=== PATIENT | female | born 1940 | race Caucasian/White ===

== ENCOUNTER 2020-01-26 12:07 | Inpatient (IN) ==
[2020-01-26] MEDS ORDERED: ASPIRIN CHEW 324 MG PO STA (12:15)
[2020-01-26] MEDS ORDERED: SODIUM CHLORIDE 0.9% 500 ML IV SCH (12:15)
[2020-01-26] MEDS ORDERED: SODIUM CHLORIDE 0.9% 1000ML 1,000 ML IV ONE (12:24)
[2020-01-26 12:47] LABS: Basophils # (auto) 0.03 K/uL (0-0.2); Basophils % (auto) 0.2 %; Eosinophils # (auto) 0.02 K/uL (0-0.5); Eosinophils % (auto) 0.2 %; Hematocrit (blood only) 32.9 % (37-47); Hemoglobin 10.4 g/dL (12.0-16.0); Immature Granulocytes # (auto) 0.04 K/uL (0.00-0.02); Immature Granulocytes % (auto) 0.3 %; Lymphocytes # (auto) 1.38 K/uL (1.2-3.4); Lymphocytes % (auto) 10.6 %; Mean Corpuscular Hemoglobin 26.7 pg (25-34); Mean Corpuscular Hgb Conc 31.6 g/dL (32-36); Mean Corpuscular Volume 84.6 fL (80-100); Mean Platelet Volume 9.5 fL (7.4-10.4); Monocytes # (auto) 0.85 K/uL (0.11-0.59); Monocytes % (auto) 6.5 %; Neutrophils # (auto) 10.69 K/uL (1.4-6.5); Neutrophils % (auto) 82.2 %; Platelet Count 475 K/uL (130-400); RDW Standard Deviation 46.5 fL (36.4-46.3); Red Blood Count 3.89 M/uL (4.2-5.4); White Blood Count 13.01 K/uL (4.8-10.8)
--- NOTE | 2020-01-26 12:56 | Emergency Department Note ---
History of Present Illness General Chief complaint: Arrhythmia/Palpitations Stated complaint: A FIB Time Seen by Provider: 01/26/20 12:15 History of Present Illness Provider complaint: Weakness/palpitations Onset (ago): day(s) 2 Location: chest Current Pain Intensity: 0 79-year-old female presents emergency department with weakness. She states she is also been having palpitations for last 2 days. Patient reports she recently traveled to [place] 1 month ago. She denies any fevers. She denies any loss of taste or smell. She denies any chest pain or difficulty breathing. No nausea or vomiting. No hematuria or hematochezia. No melena. No abdominal pain. Home Medications Home Medications Medication Instructions Recorded Confirmed Type atorvastatin 20 mg PO QAM 05/20/18 01/26/20 History lisinopril-hydrochlorothiazide 1 tab PO QAM 05/20/18 01/26/20 History metoprolol tartrate 25 mg PO BID #30 tab 05/20/18 01/26/20 Rx apixaban [Eliquis] 5 mg PO BID 01/26/20 01/26/20 History Allergies Allergy/AdvReac Type Severity Reaction Status Date / Time No Known Allergies Allergy Unverified 01/26/20 13:24 Past Med/Surg History Medical History Chronic anticoagulation HLD (hyperlipidemia) Hypertension Paroxysmal atrial fibrillation Surgical History History of dilation and curettage Family History Father Heart disease Mother Heart disease Other No significant family history Social History Preferred Language: German Communication Ability: Effective 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 Beliefs That Will Affect Care: None Current Living Situation: Spouse Other Information That Helps Us Care for You: No Feels Safe at Home: Yes Safety Concerns: Feels Safe At This Time Smoking Status: Former smoker Hx Alcohol Use: No Hx Substance Use: No Review of Systems A total of 10 systems reviewed and were otherwise negative Physical Exam Vital Signs Vital Signs - 24 hr 01/26/20 12:12 01/26/20 12:20 01/26/20 12:21 Temperature 36.8 C Temperature Source Oral Pulse Rate 75 120 H 110 H Pulse Rate from SpO2 Sensor Respiratory Rate 20 24 25 H Respiratory Effort / Characteristics Non-Labored Spontaneous Respiratory Depth Normal Blood Pressure 97/66 L 88/67 L Blood Pressure Mean 76 80 Pulse Oximetry 95 96 Oxygen Delivery Method Room Air Room Air Sepsis Recent Fever Within 48 Hours No Sepsis Action Taken by Nursing No Action Required 01/26/20 12:28 01/26/20 12:30 01/26/20 13:00 Temperature Temperature Source Pulse Rate 108 H 107 H 97 H Pulse Rate from SpO2 Sensor 102 H 106 H Respiratory Rate 17 18 18 Respiratory Effort / Characteristics Respiratory Depth Blood Pressure 83/58 L 89/60 L 77/63 L Blood Pressure Mean 74 65 68 Pulse Oximetry 95 98 Oxygen Delivery Method Room Air Room Air Sepsis Recent Fever Within 48 Hours Sepsis Action Taken by Nursing 01/26/20 13:03 01/26/20 13:23 01/26/20 13:42 Temperature Temperature Source Pulse Rate 105 H 101 H 123 H Pulse Rate from SpO2 Sensor 104 H 125 H Respiratory Rate 25 H 26 H 22 Respiratory Effort / Characteristics Respiratory Depth Blood Pressure 82/63 L 98/78 L Blood Pressure Mean 68 83 Pulse Oximetry 100 98 Oxygen Delivery Method Room Air Room Air Sepsis Recent Fever Within 48 Hours Sepsis Action Taken by Nursing 01/26/20 13:43 01/26/20 13:49 01/26/20 14:00 Temperature Temperature Source Pulse Rate 109 H 134 H 102 H Pulse Rate from SpO2 Sensor 115 H 113 H 101 H Respiratory Rate 21 25 H 16 Respiratory Effort / Characteristics Respiratory Depth Blood Pressure 87/72 L 104/81 110/80 Blood Pressure Mean 78 87 87 Pulse Oximetry 100 100 100 Oxygen Delivery Method Room Air Room Air Room Air Sepsis Recent Fever Within 48 Hours Sepsis Action Taken by Nursing 01/26/20 14:01 01/26/20 14:30 01/26/20 15:00 Temperature Temperature Source Pulse Rate 107 H 100 H 132 H Pulse Rate from SpO2 Sensor 100 H 130 H Respiratory Rate 17 22 19 Respiratory Effort / Characteristics Respiratory Depth Blood Pressure 101/85 104/86 Blood Pressure Mean 93 92 Pulse Oximetry 100 99 Oxygen Delivery Method Room Air Room Air Sepsis Recent Fever Within 48 Hours Sepsis Action Taken by Nursing 01/26/20 15:01 Temperature Temperature Source Pulse Rate 126 H Pulse Rate from SpO2 Sensor 125 H Respiratory Rate 19 Respiratory Effort / Characteristics Respiratory Depth Blood Pressure Blood Pressure Mean Pulse Oximetry 96 Oxygen Delivery Method Room Air Sepsis Recent Fever Within 48 Hours Sepsis Action Taken by Nursing Physical Exam GENERAL: She is oriented to person, place, and time. She appears well-developed and well-nourished. She does not appear distressed. HENT: Exam performed. -Head: Normocephalic and atraumatic. -Right Ear: External ear normal. No mastoid tenderness. -Left Ear: External ear normal. No mastoid tenderness. -Mouth/Throat: The oropharynx is clear and moist. No trismus in the jaw. No dental abscesses or uvula swelling. No oropharyngeal exudate or tonsillar abscesses. EYES: Conjunctivae and EOM are normal. Pupils are equal, round, and reactive to light. Right eye exhibits no discharge. Left eye exhibits no discharge. No scleral icterus. NECK: Normal range of motion. Neck supple. No JVD present. No spinous process tenderness present. No carotid bruit present. No rigidity. No tracheal deviation and normal range of motion present. No Brudzinski's sign and no Kernig's sign noted. CV: Regular rate, irregular rhythm, normal heart sounds and intact distal pulses. There is no peripheral edema. Palpable radial pulses bue. PULM/CHEST: Effort normal and breath sounds normal. No respiratory distress. No stridor. She has no wheezes. She has no rales. -Chest Wall: She exhibits no tenderness. ABD: The abdomen is soft. Bowel sounds are normal. She has no distension. No mass is present. There is no tenderness. There is no rebound, no guarding, no Alves's sign and no tenderness at McBurney's point. Rovsig negative MUSC/SKEL: Normal range of motion. There is no peripheral edema, tenderness or deformity. LYMPH: No cervical adenopathy. NEURO: She is alert and oriented to person, place, and time. She has normal strength. No cranial nerve deficit or sensory deficit. Coordination and gait normal. GCS eye subscore is 4. GCS verbal subscore is 5. GCS motor subscore is 6. Cerebellar tests wnl. SKIN: Skin is warm and dry. She is not diaphoretic. PSYCH: She has a normal mood and affect. Behavior is normal. Judgment and thought content normal. Course Course 1220: The patient was evaluated in room A2 A complete history and physical exam was performed. Cardiac monitoring: An order was placed for continuous cardiac monitoring. The monitor shows a rate of 90-120 with A. fib rhythm 1400: Vital signs stable. Labs show a leukocytosis of 13. White blood cell count 10.4. Creatinine 1.37. Urine does appear infected. Is I was informed by nursing staff that the patient got up to use restroom and had a large bloody bowel movement. Given the patient's initial low blood pressures, being Eliquis, and having bloody bowel movements, I thought that the patient should be brought into the hospital for serial hemoglobins a possible GI evaluation. Patient will also be treated with antibiotics for her urine which appears infected. Discussed with Sydney newberry [facility] hospitalist who accepted the patient and will evaluate her. Administered Medications Sodium Chloride (Nss 1000ml) 1,000 mls @ 125 mls/hr IV .Q8H VICTOR M Stop: 02/25/20 13:59 Last Admin: 01/26/20 14:27 Dose: 125 mls/hr Documented by: [id number] Discontinued Medications Aspirin (Aspirin) 324 mg PO NOW STA Stop: 01/26/20 12:16 Last Admin: 01/26/20 12:22 Dose: 324 mg Documented by: [id number] Sodium Chloride (Nss) 500 mls @ 999 mls/hr IV .Q31M VICTOR M Stop: 01/26/20 12:45 Last Admin: 01/26/20 12:49 Dose: Not Given Documented by: [id number] Sodium Chloride (Nss 1000ml) 1,000 mls @ 999 mls/hr IV .Q1H1M ONE Stop: 01/26/20 13:24 Last Infusion: 01/26/20 13:33 Dose: 0 mls/hr Documented by: [id number] Admin: 01/26/20 12:31 Dose: 999 mls/hr Documented by: [id number] Ceftriaxone Sodium (Rocephin) 1,000 mg in 50 mls @ 100 mls/hr IV NOW STA Stop: 01/26/20 14:42 Last Admin: 01/26/20 14:27 Dose: 100 mls/hr Documented by: [id number] Medical Decision Making Laboratory Data Result diagrams: 01/26/20 12:27 01/26/20 12:27 Lab Results 01/26/20 01/26/20 01/26/20 Range/Units 12:27 12:27 12:27 WBC 13.01 H (4.8-10.8) K/uL RBC 3.89 L (4.2-5.4) M/uL Hgb 10.4 L (12.0-16.0) g/dL Hct 32.9 L (37-47) % MCV 84.6 (80-100) fL MCH 26.7 (25-34) pg MCHC 31.6 L (32-36) g/dL RDW Std Deviation 46.5 H (36.4-46.3) fL RDW Coeff of Uma 15.0 H (11.5-14.5) % Plt Count 475 H (130-400) K/uL MPV 9.5 (7.4-10.4) fL Immature Gran % (Auto) 0.3 % Neut % (Auto) 82.2 % Lymph % (Auto) 10.6 % [place] % (Auto) 6.5 % Eos % (Auto) 0.2 % Baso % (Auto) 0.2 % Neut # (Auto) 10.69 H (1.4-6.5) K/uL Lymph # (Auto) 1.38 (1.2-3.4) K/uL [place] # (Auto) 0.85 H (0.11-0.59) K/uL Eos # (Auto) 0.02 (0-0.5) K/uL Baso # (Auto) 0.03 (0-0.2) K/uL Immature Gran # (Auto) 0.04 H (0.00-0.02) K/uL PT 11.9 (9.0-12.0) Seconds INR 1.1 (0.9-1.1) APTT 29.5 (21.0-31.0) Seconds PTT Ratio 1.1 Sodium 136 (136-145) mmol/L Potassium 4.3 (3.5-5.1) mmol/L Chloride 106 (98-107) mmol/L Carbon Dioxide 22 (21-32) mmol/L Anion Gap 8.0 (3-11) BUN 44 H (7-18) mg/dl Creatinine 1.37 H (0.6-1.2) mg/dl Est Cr Clr Drug Dosing 25.5 ml/min Est GFR ( Amer) 41.8 Est GFR (Non-Af Amer) 36.1 BUN/Creatinine Ratio 32.1 H (10-20) Glucose 152 H (70-99) mg/dl Lactate (0.4-2.0) mmol/L Calcium 9.1 (8.5-10.1) mg/dl Troponin I < 0.015 (0-0.045) ng/ml Lipase 146 (73-393) U/L Urine Color Urine Appearance (Clear) Urine pH (4.5-7.5) Ur Specific [place] (1.000-1.030) Urine Protein (Negative) Urine Glucose (UA) (Negative) Urine Ketones (Negative) Urine Blood (Negative) Urine Nitrite (Negative) Urine Bilirubin (Negative) Urine Urobilinogen (Negative) Ur Leukocyte Esterase (Negative) Urine RBC (0-4) /hpf Urine WBC (0-5) /hpf Ur Epithelial Cells (0-5) /lpf Urine Bacteria (Negative) 01/26/20 01/26/20 Range/Units 12:27 13:46 WBC (4.8-10.8) K/uL RBC (4.2-5.4) M/uL Hgb (12.0-16.0) g/dL Hct (37-47) % MCV (80-100) fL MCH (25-34) pg MCHC (32-36) g/dL RDW Std Deviation (36.4-46.3) fL RDW Coeff of Uma (11.5-14.5) % Plt Count (130-400) K/uL MPV (7.4-10.4) fL Immature Gran % (Auto) % Neut % (Auto) % Lymph % (Auto) % [place] % (Auto) % Eos % (Auto) % Baso % (Auto) % Neut # (Auto) (1.4-6.5) K/uL Lymph # (Auto) (1.2-3.4) K/uL [place] # (Auto) (0.11-0.59) K/uL Eos # (Auto) (0-0.5) K/uL Baso # (Auto) (0-0.2) K/uL Immature Gran # (Auto) (0.00-0.02) K/uL PT (9.0-12.0) Seconds INR (0.9-1.1) APTT (21.0-31.0) Seconds PTT Ratio Sodium (136-145) mmol/L Potassium (3.5-5.1) mmol/L Chloride (98-107) mmol/L Carbon Dioxide (21-32) mmol/L Anion Gap (3-11) BUN (7-18) mg/dl Creatinine (0.6-1.2) mg/dl Est Cr Clr Drug Dosing ml/min Est GFR ( Amer) Est GFR (Non-Af Amer) BUN/Creatinine Ratio (10-20) Glucose (70-99) mg/dl Lactate 1.9 (0.4-2.0) mmol/L Calcium (8.5-10.1) mg/dl Troponin I (0-0.045) ng/ml Lipase (73-393) U/L Urine Color Yellow Urine Appearance Slightly Cloudy (Clear) Urine pH 5.0 (4.5-7.5) Ur Specific [place] 1.025 (1.000-1.030) Urine Protein Negative (Negative) Urine Glucose (UA) Negative (Negative) Urine Ketones Negative (Negative) Urine Blood 1+ H (Negative) Urine Nitrite Positive A (Negative) Urine Bilirubin Negative (Negative) Urine Urobilinogen Negative (Negative) Ur Leukocyte Esterase Trace H (Negative) Urine RBC 0-4 (0-4) /hpf Urine WBC 10-30 H (0-5) /hpf Ur Epithelial Cells >30 H (0-5) /lpf Urine Bacteria 1+ H (Negative) Imaging Data Radiologist's Impression: XR chest 1V portable HISTORY: 46 years-old Male Chest Pain . Acute atypical chest pain COMPARISON: CT abdomen and pelvis 04/24/2016 TECHNIQUE: Portable AP view of the chest FINDINGS: Cardiac silhouette is mildly enlarged. Eventration of the right hemidiaphragm. Mild linear subsegmental left basilar atelectasis/scarring. No pneumothorax, pleural effusion, airspace consolidation or overt pulmonary edema. Degenerative changes of the shoulders and spine. IMPRESSION: No acute process. ACT 112: Negative or not required by law. The above report was generated using voice recognition software. It may contain grammatical, syntax or spelling errors. Electronically signed by: Jesus Ivory M.D. 01/26/2020 2:25 PM Dictated: 01/26/20 1424 Transcribed: 01/26/20 1424 ECG Data Indication: + palpitations and + weakness Rate (beats per minute): 109 Rhythm: + atrial fibrillation ECG Intervals/blocks: + Normal QRS and + Normal QT-c ECG ST segments: + Normal ST segments MDM Narrative 1220: The patient was evaluated in room A2 A complete history and physical exam was performed. Cardiac monitoring: An order was placed for continuous cardiac monitoring. The monitor shows a rate of 90-120 with A. fib rhythm 1400: Vital signs stable. Labs show a leukocytosis of 13. White blood cell count 10.4. Creatinine 1.37. Urine does appear infected. Is I was informed by nursing staff that the patient got up to use restroom and had a large bloody bowel movement. Given the patient's initial low blood pressures, being Eliquis, and having bloody bowel movements, I thought that the patient should be brought into the hospital for serial hemoglobins a possible GI evaluation. Patient will also be treated with antibiotics for her urine which appears infected. Discussed with Sydney Horvath hospitalist who accepted the patient and will evaluate her. Impression & Plan GIB (gastrointestinal bleeding), Acute UTI Discharge Plan Visit Data Chief Complaint: Arrhythmia/Palpitations Stated Complaint: A FIB ED Provider: Kenneth Cardoza Discharge Problem: GIB (gastrointestinal bleeding), Acute UTI Patient Disposition: Being Evaluated by Hospitalist Discharge Instructions Interventions: ED Discharge Assessment Last Done: 01/26/20 15:04 Forms Stand Alone Forms: [facility] Prescriptions Prescriptions: No Action atorvastatin 20 mg tablet 20 mg PO QAM RF: 0 lisinopril-hydrochlorothiazide 20-12.5 mg tablet 1 tab PO QAM RF: 0 metoprolol tartrate 25 mg tablet 25 mg PO BID Qty: 30 RF: 0 Eliquis 5 mg tablet 5 mg PO BID RF: 0 Referrals Referrals: Shruthi Crowell DO [Primary Care Provider] - Discharge Problem: GIB (gastrointestinal bleeding) Qualifiers: GI bleed type/associated pathology: unspecified gastrointestinal hemorrhage type Qualified Code(s): K92.2 - Gastrointestinal hemorrhage, unspecified
[2020-01-26 12:57] LABS: INR 1.1 (0.9-1.1); Partial Thromboplastin Ratio 1.1; Partial Thromboplastin Time 29.5 Seconds (21.0-31.0); Prothrombin Time 11.9 Seconds (9.0-12.0)
[2020-01-26 13:04] LABS: BUN Creatinine Ratio 32.1 (10-20); Blood Urea Nitrogen 44 mg/dl (7-18); Calcium 9.1 mg/dl (8.5-10.1); Carbon Dioxide 22 mmol/L (21-32); Chloride 106 mmol/L (98-107); Creatinine Clr Calc Pharmacy 25.5 ml/min; Est GFR (African American) 41.8; Est GFR (Non-African American) 36.1; Glucose 152 mg/dl (70-99); Lipase 146 U/L (73-393); Potassium 4.3 mmol/L (3.5-5.1); Sodium 136 mmol/L (136-145)
--- NOTE | 2020-01-26 13:07 | XRay Report ---
XR chest 2V PA/lateral HISTORY: 79 years-old Female Chest Pain acute atypical chest pain COMPARISON: chest radiograph 05/20/2018 TECHNIQUE: PA and lateral views of the chest FINDINGS: Cardiomediastinal and hilar silhouettes are unchanged. Calcified plaque of the thoracic aorta. Hyperi nflation with increased lucency of the lungs redemonstrated suggestive of emphysema. No pneumothorax, pleural effusion, airspace consolidation or overt pulmonary edema. Degenerative changes of the shoul ders and spine. IMPRESSION: No acute process. ACT 112: Negative or not required by law. The above report was generated using voice recognition software. It may contain grammatical, syntax o r spelling errors. Electronically signed by: Jesus Ivory M.D. 01/26/2020 1:05 PM
[2020-01-26 13:10] LABS: Troponin I < 0.015 ng/ml (0-0.045)
[2020-01-26 13:54] LABS: Appearance Urine Slightly Cloudy (Clear); Bilirubin Urine Negative (Negative); Blood Urine 1+ (Negative); Color Urine Yellow; Glucose Urine UA Negative (Negative); Ketones Urine Negative (Negative); Leukocyte Esterase Urine Trace (Negative); Nitrite Urine Positive (Negative); Protein Urine Negative (Negative); Specific Gravity Urine 1.025 (1.000-1.030); Urobilinogen Urine Negative (Negative)
[2020-01-26 14:00] LABS: Bacteria Urine 1+ (Negative); Epithelial Cell Urine >30 /lpf (0-5); RBC Urine 0-4 /hpf (0-4)
[2020-01-26] MEDS ORDERED: SODIUM CHLORIDE 0.9% 1000ML 1,000 ML IV SCH (14:00)
[2020-01-26] MEDS ORDERED: cefTRIAXone SODIUM 1,000 MG/50 ML BAG IV STA (14:13)
--- NOTE | 2020-01-26 15:10 | History & Physical Report ---
Date of Service January 26, 2020 Assessment & Plan (1) Lower GI bleed: (2) Anemia: -admit to tele -Patient presenting from home with reports of fatigue, weakness, exertional shortness of breath. Had an outpatient EKG that showed afib with RVR and was sent to the ED for further eval. While in the ED, patient had a bowel movement with bright red blood. Patient is anticoagulated on Eliquis for history of paroxysmal atrial fibrillation. -Hgb 10.4, was 15.3 04/2018 -No prior history of EGD or colonoscopy -Hold Eliquis -Serial H&H, transfuse PRN -Clear liquids -IVF -GI consult, Dr. Fung notified (3) Atrial fibrillation with RVR: -Presented with heart rate in the 120s -Likely secondary to GI bleeding and/or UTI -Continue supportive efforts for GI bleeding and UTI -Holding Eliquis due to GI bleeding -Continue metoprolol (4) Possible urinary tract infection: -UA suggest UTI -WBC 13 K. Noted the patient is also tachycardic and hypotensive however GI bleeding is likely contributing to this. -Normal lactate 1.9 -Most recent urine culture grew a pansensitive E. coli, received IV ceftriaxone in the ED, will continue with -Follow urine and blood cultures (5) Hypertension: -Given hypotension, hold lisinopril and HCTZ -Continue metoprolol for rate control of A. fib (6) DVT prophylaxis: -SCDs due to GI bleeding History of Present Illness Chief Complaint: Weakness, shortness of breath Primary Care Provider: Shruthi Crowell DO 79-year-old female with PMH paroxysmal atrial fibrillation anticoagulant Eliquis, HTN, HLD, and other problems listed below who presents the ED for evaluation of weakness and shortness of breath. Patient reports she has been feeling weak and fatigued for the past few days. Yesterday, she reports she felt short of breath with exertion. She was able to monitor her blood pressure and heart rate at home and found that her heart rate was up and her blood pressure was low. She was seen in outpatient clinic and had an EKG that showed atrial fibrillation with RVR, she was therefore sent to the ED for further evaluation. While in the ED, patient had a bowel movement with some bright red blood. Patient reports this happens occasionally at home. Denies any dark tarry stools. No abdominal pain, nausea, vomiting, diarrhea. She denies chest pain and palpitations. She reports some mild lightheadedness with standing however denies any syncopal event. She denies any other recent illnesses, fevers, chills. No urinary symptoms. In the ED, patient was found to be in atrial fibrillation with RVR with rates 110s-120s, hypotension with systolic BP as low as 77/63. WBC 13 K, Hgb 10.4. UA suggest UTI. Patient received full dose aspirin, IV ceftriaxone, and IVF. Allergies Allergy/AdvReac Type Severity Reaction Status Date / Time No Known Allergies Allergy Unverified 01/26/20 13:24 Home Medications Home Medications Medication Instructions Recorded Confirmed Type atorvastatin 20 mg PO QAM 05/20/18 01/26/20 History lisinopril-hydrochlorothiazide 1 tab PO QAM 05/20/18 01/26/20 History metoprolol tartrate 25 mg PO BID #30 tab 05/20/18 01/26/20 Rx apixaban [Eliquis] 5 mg PO BID 01/26/20 01/26/20 History Past Med/Surg History Medical History Chronic anticoagulation HLD (hyperlipidemia) Hypertension Paroxysmal atrial fibrillation Surgical History History of dilation and curettage Family History Father Heart disease Mother Heart disease Other No significant family history Social History Preferred Language: Spanish 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 Beliefs That Will Affect Care: None Current Living Situation: Spouse Other Information That Helps Us Care for You: No Feels Safe at Home: Yes Safety Concerns: Feels Safe At This Time Smoking Status: Former smoker Hx Alcohol Use: No Hx Substance Use: No Review of Systems Review of Systems: ROS per HPI, all other systems reviewed and negative Physical Exam Constitutional: WD/WN, vitals as above Eyes: PERRL, conjunctivae normal, anicteric sclerae ENMT: external ear and nose normal, oropharynx normal Respiratory: normal respiratory effort, lungs clear to auscultation Cardiovascular: Rate/Rhythm: regular rate and regular rhythm Vessels: normal peripheral pulses Extremities: + edema Gastrointestinal (Abdomen): normal bowel sounds, soft, nontender, no hepatosplenomegaly Musculoskeletal: no cyanosis or clubbing, extremities motor strength 5/5 Skin: no rashes, warm and dry Neurologic: PERRL, EOMI, accommodation nl, no face palsy, no dysarthria Psychiatric: A+Ox3, euthymic affect Results & Data Results & Data ([facility]) Vital Signs (Past 12 Hours) Vital Signs Temp Pulse Resp BP Pulse Ox 01/26/20 13:43 109 H 21 87/72 L 100 01/26/20 13:42 123 H 22 98 01/26/20 13:23 101 H 26 H 98/78 L 01/26/20 13:03 105 H 25 H 82/63 L 100 01/26/20 13:00 97 H 18 77/63 L 01/26/20 12:30 107 H 18 89/60 L 98 01/26/20 12:28 108 H 17 83/58 L 95 01/26/20 12:21 110 H 25 H 96 01/26/20 12:20 120 H 24 88/67 L 01/26/20 12:12 36.8 C 75 20 97/66 L 95 Laboratory Results Short CBC 01/26/20 Range/Units 12:27 WBC 13.01 H (4.8-10.8) K/uL Hgb 10.4 L (12.0-16.0) g/dL Hct 32.9 L (37-47) % Plt Count 475 H (130-400) K/uL BMP 01/26/20 12:27 Sodium 136 Potassium 4.3 Chloride 106 Carbon Dioxide 22 BUN 44 H Creatinine 1.37 H Glucose 152 H Calcium 9.1 Cardiac Enzymes 01/26/20 Range/Units 12:27 Troponin I < 0.015 (0-0.045) ng/ml Urine 01/26/20 Range/Units 13:46 Urine Color Yellow Urine Appearance Slightly Cloudy (Clear) Urine pH 5.0 (4.5-7.5) Ur Specific [place] 1.025 (1.000-1.030) Urine Protein Negative (Negative) Urine Glucose (UA) Negative (Negative) Diagnostic Findings CXR IMPRESSION: No acute process. Code Status & VTE Plan Code Status Patient is a full code as per my discussion with her. VTE Prophylaxis Plan VTE Prophylaxis will be ordered: Yes Supervising Physician Co-Signing Physician Notes I have seen and examined the patient and have discussed the case with the provider above. I agree with the assessment and plan as stated. This is an 79 yo F with a h/o paroxysmal atrial fibrillation and no h/o stroke who presents with a lower GI bleed and anemia. She has no h/o CAD or of being ill recently. She reports never having a colonoscopy. She denies abdominal pain but is feeling fatigued and orthostatic with a small bloody BM in the ER today. Physical exam reveals a well appearing female in her 80s who appears younger than her stated age who is in no distress. Mucous membranes are moist and there is no evidence of significant ecchymosis. Cardiac exam reveals S1/2 with an irregular tachy rhythm, radial pulse is 2+ on the right, and no edema is present. Lungs are clear to auscultation throughout and she does not show signs of respiratory distress. Abdomen exam is benign. H/H is 10.4/33, INR is 1 (l ast dose Eliquis was this morning), kidney function appears stable. Plan as above is to hold Eliquis and chemoprophylaxis and trend H/H. Will cont resuscitation efforts with IVF overnight. Cont home metoprolol; RVR likely secondary to acute blood loss anemia vs infection, monitor on telemetry. Agree with empiric Rocephin for UTI, however, she does not appear to be septic and denies any UTI symptoms. Cont empiric abx pending urine culture results. GI consult for recommendations on etiology investigation. Cont clear liquid diet for now. DO Burton
[2020-01-26] MEDS ORDERED: ONDANSETRON INJ 2 MG/ML 2 ML VIAL IV PRN (15:34)
[2020-01-26] MEDS ORDERED: ACETAMINOPHEN 325 MG TAB PO PRN (15:34)
[2020-01-26] MEDS: SODIUM CHLORIDE 0.9% 1000ML 1,000 ML IV SCH (15:47)
[2020-01-26 20:10] LABS: Hematocrit (blood only) 31.6 % (37-47); Hemoglobin 9.9 g/dL (12.0-16.0)
[2020-01-26] MEDS: METOPROLOL TARTRATE 25 MG TAB PO SCH (21:26)
[2020-01-27] MEDS: SODIUM CHLORIDE 0.9% 1000ML 1,000 ML IV SCH ×3 (02:48→23:06)
[2020-01-27 06:06] LABS: Hematocrit (blood only) 30.5 % (37-47); Hemoglobin 9.5 g/dL (12.0-16.0); Mean Corpuscular Hemoglobin 27.1 pg (25-34); Mean Corpuscular Hgb Conc 31.1 g/dL (32-36); Mean Corpuscular Volume 86.9 fL (80-100); Mean Platelet Volume 9.6 fL (7.4-10.4); Platelet Count 395 K/uL (130-400); RDW Coefficient of Variation 15.3 % (11.5-14.5); RDW Standard Deviation 48.7 fL (36.4-46.3); Red Blood Count 3.51 M/uL (4.2-5.4)
[2020-01-27 06:17] LABS: INR 1.1 (0.9-1.1); Prothrombin Time 11.2 Seconds (9.0-12.0)
[2020-01-27 06:41] LABS: BUN Creatinine Ratio 29.3 (10-20); Calcium 8.4 mg/dl (8.5-10.1); Creatinine Clr Calc Pharmacy 34.2 ml/min; Est GFR (African American) 53.9; Est GFR (Non-African American) 46.5; Potassium 4.1 mmol/L (3.5-5.1)
--- NOTE | 2020-01-27 10:00 | Gastrointestinal Consultation ---
Date of Consultation January 27, 2020 Assessment & Plan (1) GIB (gastrointestinal bleeding): (2) Anemia: 1. Patient refuses consideration of any invasive GI work up. 2. Therefore, recommend twice daily Protonix 40 mg IV. 3. Clear liquid diet. 4. Continue supportive care. If s/s of worsening H&H or overt GIB, would recommend the patient reconsider EGD. Thank you for allowing us to participate in the care of this patient. If you have any questions or concerns, please do not hesitate to contact us. Supervising Physician Co-Signing Physician Notes Agree with JANINE oCyne as above No BM's today, feeling better Abd: Soft, NT, ND, +BS Continue Protonix 40 mg IV BID Continue supportive care, she is not interested in endoscopic workup at this time. History of Present Illness Reason for Consultation: Symptomatic anemia and heme positive stool Requesting Physician: JANINE Thompson Attending Physician: Roro Patel MD History of Present Illness Angely Michelle is a very pleasant 79 year-old female with a history paroxysmal atrial fibrillation on chronic anticoagulation therapy admitted to the hospital with symptomatic anemia. She states she was having progressive weakness and shortness of breath with some dizziness upon standing which began approximately three weeks ago. Her hemoglobin on admission was noted to be 10.4. She has never undergone any prior endoscopic evaluation in the past. She denies any abdominal pain, nausea or vomiting, fevers or chills, chest pain, palpitations or lower extremity edema. Has been made NPO. She is not currently on a PPI. Allergies Allergy/AdvReac Type Severity Reaction Status Date / Time No Known Allergies Allergy Unverified 01/26/20 13:24 Home Medications Home Medications Medication Instructions Recorded Confirmed Type atorvastatin 20 mg PO QAM 05/20/18 01/26/20 History lisinopril-hydrochlorothiazide 1 tab PO QAM 05/20/18 01/26/20 History metoprolol tartrate 25 mg PO BID #30 tab 05/20/18 01/26/20 Rx apixaban [Eliquis] 5 mg PO BID 01/26/20 01/26/20 History Patient History Medical History Chronic anticoagulation HLD (hyperlipidemia) Hypertension Paroxysmal atrial fibrillation Surgical History History of dilation and curettage Family History Father Heart disease Mother Heart disease Other No significant family history Social History Preferred Language: Qatari Communication Ability: Effective 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 Beliefs That Will Affect Care: None marital status: Current Living Situation: Spouse Other Information That Helps Us Care for You: No Feels Safe at Home: Yes Safety Concerns: Feels Safe At This Time Smoking Status: Former smoker Hx Alcohol Use: No Hx Substance Use: No Review of Systems Review of Systems: All systems reviewed & are unremarkable except as noted in HPI & below Physical Exam Constitutional: WD/WN, vitals as above Eyes: EOM intact bilaterally Neck: normal appearance Respiratory: normal respiratory effort, lungs clear to auscultation Cardiovascular: Rate/Rhythm: + irregularly irregular Heart Sounds: no m urmur Gastrointestinal (Abdomen): normal bowel sounds, soft, nontender, no hepatosplenomegaly Inspection/Auscultation: abdomen not distended Musculoskeletal: Extremities: no cyanosis no lower extremity edema Skin: no rashes, warm and dry Neurologic: moves all extremities Psychiatric: A+Ox3, euthymic affect Results & Data ([facility]) Vital Signs (Past 12 Hours) Vital Signs Temp Pulse Pulse Resp BP Pulse Ox 01/27/20 07:42 37.0 C 115 H 16 102/69 98 01/27/20 07:31 134 H 01/27/20 04:00 36.6 C 110 H 17 93/70 L 94 01/26/20 23:16 36.4 C L 104 H 17 80/62 L 96 Laboratory Results Abnormal lab results 01/26/20 01/26/20 01/26/20 Range/Units 12:27 12:27 13:46 WBC 13.01 H (4.8-10.8) K/uL RBC 3.89 L (4.2-5.4) M/uL Hgb 10.4 L (12.0-16.0) g/dL Hct 32.9 L (37-47) % MCHC 31.6 L (32-36) g/dL RDW Std Deviation 46.5 H (36.4-46.3) fL RDW Coeff of Uma 15.0 H (11.5-14.5) % Plt Count 475 H (130-400) K/uL Neut # (Auto) 10.69 H (1.4-6.5) K/uL Butler # (Auto) 0.85 H (0.11-0.59) K/uL Immature Gran # (Auto) 0.04 H (0.00-0.02) K/uL Chloride (98-107) mmol/L BUN 44 H (7-18) mg/dl Creatinine 1.37 H (0.6-1.2) mg/dl BUN/Creatinine Ratio 32.1 H (10-20) Glucose 152 H (70-99) mg/dl Calcium (8.5-10.1) mg/dl Urine Blood 1+ H (Negative) Urine Nitrite Positive A (Negative) Ur Leukocyte Esterase Trace H (Negative) Urine WBC 10-30 H (0-5) /hpf Ur Epithelial Cells >30 H (0-5) /lpf Urine Bacteria 1+ H (Negative) 01/26/20 01/27/20 01/27/20 Range/Units 20:02 05:47 05:47 WBC (4.8-10.8) K/uL RBC 3.51 L (4.2-5.4) M/uL Hgb 9.9 L 9.5 L (12.0-16.0) g/dL Hct 31.6 L 30.5 L (37-47) % MCHC 31.1 L (32-36) g/dL RDW Std Deviation 48.7 H (36.4-46.3) fL RDW Coeff of Uma 15.3 H (11.5-14.5) % Plt Count (130-400) K/uL Neut # (Auto) (1.4-6.5) K/uL Butler # (Auto) (0.11-0.59) K/uL Immature Gran # (Auto) (0.00-0.02) K/uL Chloride 112 H (98-107) mmol/L BUN 33 H (7-18) mg/dl Creatinine (0.6-1.2) mg/dl BUN/Creatinine Ratio 29.3 H (10-20) Glucose (70-99) mg/dl Calcium 8.4 L (8.5-10.1) mg/dl Urine Blood (Negative) Urine Nitrite (Negative) Ur Leukocyte Esterase (Negative) Urine WBC (0-5) /hpf Ur Epithelial Cells (0-5) /lpf Urine Bacteria (Negative) PG Care Time/CCT Total # of Minutes Spent Total Time Spent with Patient: Total time spent is greater than 50% in coordination of care (as documented) at patient's floor/unit and/or counseling patient: Coding Level of Care Code 20437 Initial Inpt Care Lvl 3 Diagnoses GIB (gastrointestinal bleeding) K92.2 GI bleed type/associated pathology: unspecified gastrointestinal hemorrhage type Anemia D64.9 (1) GIB (gastrointestinal bleeding) GI bleed type/associated pathology: unspecified gastrointestinal hemorrhage type Qualified Code(s): K92.2 - Gastrointestinal hemorrhage, unspecified
[2020-01-27] MEDS: ATORVASTATIN 20 MG TAB PO SCH (10:37)
[2020-01-27] MEDS: PANTOprazole 40 MG in SYRINGE 0 ML IV SCH ×2 (10:37→20:12)
[2020-01-27] MEDS: METOPROLOL TARTRATE 25 MG TAB PO SCH ×3 (10:37→21:37)
[2020-01-27] MEDS: cefTRIAXone SODIUM 1,000 MG in DEXTROSE 5% 50 ML IV SCH (12:05)
--- NOTE | 2020-01-27 13:24 | Cardiology Consultation ---
Date of Consultation January 27, 2020 Assessment & Plan (1) Atrial fibrillation with RVR: (2) GIB (gastrointestinal bleeding): (3) Anemia: (4) Hypertension: I had a long discussion with the patient regarding the natural history, pathophysiology, and stroke risk associated with paroxysmal atrial fibrillation. [id number] score is 4 for risk factors of age > 75, female sex, and HTN. With evidence of lower GI bleeding, agree with holding anticoagulation at this time. Further evaluation for source of bleeding is warranted. Patient currently declining EGD or colonoscopy. Cardioversion cannot be pursued at this time as anticoagulation must remain on hold. I strongly encouraged patient to proceed with gastroenterology evaluation of her gastrointestinal bleeding and anemia. She and her will consider their options. I will pursue a rate control strategy currently. Titrate metoprolol to 25 mg 3 times daily. Repeat resting 2D transthoracic echocardiogram pending at this time. History of Present Illness Reason for Consultation: Paroxysmal atrial fibrillation Requesting Physician: Dr. Patel Attending Physician: Roro Patel MD History of Present Illness 79-year-old female presented emergency department with weakness. Notes generalized fatigue and lack of stamina. 48 hours prior to admission, she notes palpitations and tachycardia. ECG demonstrates atrial fibrillation with rapid ventricular response. A large bloody bowel movement ported while in the ED. Patient was admitted to the progressive care unit due to rapid atrial fibrillation, new onset anemia, and evidence of lower GI bleeding. Patient received her usual outpatient dose of metoprolol, 25 mg twice daily. Heart rates have improved. Currently telemetry demonstrates atrial fibrillation with an average heart rate of 90 bpm. Rapid ventricular response with heart rat es as high as 155 bpm recorded with activity. She notes palpitations and dyspnea with activity. Denies chest discomfort or heaviness. No lightheadedness, dizziness, syncope, or near syncope. Hemoglobin of 9.9 g/dL recorded on admission which is trended down to 9.5 g/dL this morning. Patient treated with IV hydration. Fluid balance is positive more than 2 L since admission. Seen and examined at the bedside. Her is present as well. Patient currently denies any palpitations, chest discomfort, or dyspnea at rest. Notes fatigue and lack of stamina. Denies overt signs/symptoms of GI blood loss. Denies any melena, hematochezia, coffee-ground emesis, nausea, or vomiting. Patient voices concern regarding her elevated heart rate. She would like to pursue further treatment of her atrial fibrillation. She was seen by gastroenterology and declined any invasive procedures. Allergies Allergy/AdvReac Type Severity Reaction Status Date / Time No Known Allergies Allergy Unverified 01/26/20 13:24 Home Medications Home Medications Medication Instructions Recorded Confirmed Type atorvastatin 20 mg PO QAM 05/20/18 01/26/20 History lisinopril-hydrochlorothiazide 1 tab PO QAM 05/20/18 01/26/20 History metoprolol tartrate 25 mg PO BID #30 tab 05/20/18 01/26/20 Rx apixaban [Eliquis] 5 mg PO BID 01/26/20 01/26/20 History Patient History Medical History Chronic anticoagulation HLD (hyperlipidemia) Hypertension Paroxysmal atrial fibrillation Surgical History History of dilation and curettage Family History Father Heart disease Mother Heart disease Other No significant family history Social History Preferred Language: Belarusian Communication Ability: Effective Supervisor Cd Area Required: No Beliefs That Will Affect Care: None marital status: Current Living Situation: Spouse Other Information That Helps Us Care for You: No Feels Safe at Home: Yes Safety Concerns: Feels Safe At This Time Smoking Status: Former smoker Hx Alcohol Use: No Hx Substance Use: No Review of Systems Review of Systems: All systems reviewed & are unremarkable except as noted in HPI & below Physical Exam Constitutional: well developed and well nourished; no acute distress and not ill appearing Respiratory: normal respiratory effort, lungs clear to auscultation Auscultation: no crackles, no rales, no rhonchi and no wheezes Cardiovascular: Rate/Rhythm: + irregularly irregular Heart Sounds: normal S1 and normal S2; no murmur Vessels: no JVD and no carotid bruit Extremities: no edema Gastrointestinal (Abdomen): Inspection/Auscultation: abdomen normal to inspection and normal bowel sounds; abdomen not distended Percussion/Palpation: abdomen soft; abdomen nontender, no guarding and abdomen not rigid Musculoskeletal: Head/Neck/Chest: normocephalic and head atraumatic Extremities: no cyanosis and no clubbing Skin: no rashes, no lesions, no ulcers and no jaundice Neurologic: moves all extremities; no focal motor deficits Speech / Cognition: normal speech Motor/Sensory: no tremor Psychiatric: A+Ox3, euthymic affect Results & Data ([facility]) Vital Signs (Past 12 Hours) Vital Signs Temp Pulse Pulse Resp BP Pulse Ox 01/27/20 12:28 36.7 C 80 18 104/64 99 01/27/20 10:36 69 126/85 01/27/20 07:42 37.0 C 115 H 16 102/69 98 01/27/20 07:31 134 H 01/27/20 04:00 36.6 C 110 H 17 93/70 L 94 (1) GIB (gastrointestinal bleeding) GI bleed type/associated pathology: unspecified gastrointestinal hemorrhage type Qualified Code(s): K92.2 - Gastrointestinal hemorrhage, unspecified (2) Anemia Anemia type: unspecified type Qualified Code(s): D64.9 - Anemia, unspecified (3) Hypertension Hypertension type: essential hypertension Qualified Code(s): I10 - Essential (primary) hypertension
--- NOTE | 2020-01-27 15:39 | Hospitalist Progress Note ---
Date of Service January 27, 2020 Assessment & Plan (1) Atrial fibrillation with RVR: Was seen at the urgent care with complain of fatigue, weakness and SOB, then was found to be in AFIB with RVR and was sent to the ER HR on admission was above 120's Possible related to infection vs GI bleed ECG demonstrates atrial fibrillation with rapid ventricular response. Cardio on board Metoprolol increased to 25mg TID Will get an ECHO Eliquis on hold due to GI bleed Continue monitor in tele (2) Lower GI bleed: (3) Anemia: Had an episode of bloody bowel movement in the ER. Hgb 10.4 on admission, Hgb was 15.3 04/2018 Hgb 9.4 this morning Received 3L IV fluid Gastro on board Recommended to get EGD but patient refused it for now Continue PPI IV for now Eliquis on hold for now Continue clear liquid diet Will continue monitor H/H Will check FOBT (4) Possible urinary tract infection: UA positive for Nitrite, Leukocytes and bacteria Urine cx positive for gram negative bacilli WBC 13K on admission, trending down to 8.3K Continue IV Rocephin daily for now Will follow urine sensitivity (5) Hypertension: BP on admission was in the 80's/60's Received IV fluid, will continue gentle hydration Lisinopril and HCTZ on hold Continue metoprolol 25mg TID Continue monitor BP (6) DVT prophylaxis: SCDs due to GI bleeding Code Status Full Code Disposition Updates provided to her son Shawn over the phone Continue monitor in tele Admission and Anticipated Discharge Date Admission Date: January 26, 2020 Subjective Pt was seen and examined Lying in bed with no distress with at bedside Pt said that she feels a little better She said that when she got up to move around, her HR increased significantly She said that she gets tired easily and becomes SOB with exertion She said that she never noticed any blood in her stools She said that staff told her that in the ER that she had blood in her stools after she gave a urine sample She declines to get have any scope for now Denies any chest pain, palpitation, dizziness and SOB Physical Exam Physical Exam: General- No acute distress Head- atraumatic Eyes- PERRL, EOMI, ENT- oropharynx clear Neck- supple, no JVD Lungs- clear to auscultation Heart- irregular rhythm Abdomen- normal bowel sounds, soft, nontender Extremities- no calf tenderness Neuro- alert, oriented x 3; PERRL, EOMI; no facial palsy; no dysarthria Skin- warm & dry Results & Data Results & Data ([facility]) Vital Signs (Past 12 Hours) Vital Signs Temp Pulse Pulse Resp BP Pulse Ox 01/27/20 15:06 87 01/27/20 14:15 67 103/57 L 01/27/20 12:28 36.7 C 80 18 104/64 99 01/27/20 10:36 69 126/85 01/27/20 07:42 37.0 C 115 H 16 102/69 98 01/27/20 07:31 134 H 01/27/20 04:00 36.6 C 110 H 17 93/70 L 94 (1) Anemia Anemia type: unspecified type Qualified Code(s): D64.9 - Anemia, unspecified (2) Hypertension Hypertension type: essential hypertension Qualified Code(s): I10 - Essential (primary) hypertension
[2020-01-28] MEDS: METOPROLOL TARTRATE 25 MG TAB PO SCH ×3 (05:30→21:02)
--- NOTE | 2020-01-28 05:51 | Electrocardiogram Report ---
Test Reason : Blood Pressure : / mmHG Vent. Rate : 109 BPM Atrial Rate : 115 BPM P-R Int : 000 ms QRS Dur : 072 ms QT Int : 286 ms P-R-T Axes : 000 033 154 degrees QTc Int : 385 ms Atrial fibrillation with rapid ventricular response Septal infarct , age undetermined Nonspecific ST and T wave abnormality Abnormal ECG When compared with ECG of 20-MAY-2018 13:13, Atrial fibrillation has replaced Sinus rhythm Septal infarct is now Present Nonspecific T wave abnormality is now Present in Anterior leads QT has shortened Confirmed by Kb Diop ([id number]) on 01/28/2020 5:50:42 AM Referred By: ED Confirmed By:Kb Diop
[2020-01-28 05:57] LABS: Hematocrit (blood only) 28.3 % (37-47); Hemoglobin 8.7 g/dL (12.0-16.0); Mean Corpuscular Hemoglobin 26.9 pg (25-34); Mean Corpuscular Hgb Conc 30.7 g/dL (32-36); Mean Corpuscular Volume 87.3 fL (80-100); Mean Platelet Volume 9.3 fL (7.4-10.4); Platelet Count 377 K/uL (130-400); RDW Coefficient of Variation 15.2 % (11.5-14.5); RDW Standard Deviation 48.9 fL (36.4-46.3); Red Blood Count 3.24 M/uL (4.2-5.4)
[2020-01-28 06:41] LABS: BUN Creatinine Ratio 21.5 (10-20); Calcium 8.6 mg/dl (8.5-10.1); Creatinine Clr Calc Pharmacy 34.2 ml/min; Est GFR (African American) 53.4; Potassium 4.1 mmol/L (3.5-5.1)
[2020-01-28] MEDS ORDERED: SODIUM CHLORIDE 0.9% 1000ML 1,000 ML IV SCH (08:30)
--- NOTE | 2020-01-28 09:22 | History & Physical Bridge Note ---
Date of Service January 28, 2020 History & Physical Bridge Note I have examined the patient, reviewed the History & Physical and in the interval since the performance of the History & Physical I have noted the following changes of clinical significance: Patient noted to have an approximate 1 g drop in H&H from 9.5/30.5 to 8.7/28.3. Patient seen at the bedside with Dr. Boyle from cardiology. He verbalized patient was stable from cardiac standpoint for anesthesia today. Remains on BID PPI. Denies CP, SOB, abdominal pain, n/v or overt GIB sx. PE: A&Ox3. Heart irregularly irregular. Lungs CTA bilaterally. Abdomen soft, non-tender. Normal bowel sounds. A/P: Patient with acute blood loss anemia in the setting of chronic anticoagulation use. Never has undergone any endoscopic work up in the past. -NPO for now. -EGD today for further evaluation. -Continue Protonix 40 mg IV BID. -Additional recommendations pending results. If no findings, may need to consider colonoscopy at some point.
--- NOTE | 2020-01-28 11:28 | Cardiology Progress Note ---
Date of Service January 28, 2020 Assessment & Plan (1) Atrial fibrillation with RVR: (2) GIB (gastrointestinal bleeding): (3) Anemia: (4) Hypertension: Continue metoprolol 25 mg 3 times daily. Anticoagulation on hold. Patient will proceed with EGD and colonoscopy today. Recommend transfusion of packed red blood cells to maintain hemoglobin greater than 8.0 g/dL. Subjective Patient seen and examined at the bedside. Denies chest pain, palpitations, shortness of breath. Heart rate improved with titration of metoprolol. She has decided to proceed with EGD and colonoscopy. No signs/symptoms of GI/ blood loss, however, hemoglobin has trended downward to 8.7 g/dL today. present at bedside. I returned to the bedside for an additional conversation with her son. Review of Systems Review of Systems: All systems reviewed & are unremarkable except as noted in HPI & below Physical Exam Constitutional: well developed and well nourished; no acute distress and not ill appearing Respiratory: normal respiratory effort, lungs clear to auscultation Auscultation: no crackles, no rales, no rhonchi and no wheezes Cardiovascular: Rate/Rhythm: + irregularly irregular Heart Sounds: normal S1 and normal S2; no murmur Vessels: no JVD and no carotid bruit Extremities: no edema Gastrointestinal (Abdomen): Inspection/Auscultation: abdomen normal to inspection and normal bowel sounds; abdomen not distended Percussion/Palpation: abdomen soft; abdomen nontender, no guarding and abdomen not rigid Musculoskeletal: Head/Neck/Chest: normocephalic and head atraumatic Extremities: no cyanosis and no clubbing Skin: no rashes, no lesions, no ulcers and no jaundice Neurologic: moves all extremities; no focal motor deficits Speech / Cognition: normal speech Motor/Sensory: no tremor Psychiatric: A+Ox3, euthymic affect Results & Data Vital Signs (Past 12 Hours) Vital Signs Temp Pulse Resp BP BP Pulse Ox 01/28/20 07:32 36.4 C L 94 H 18 97/82 L 94 01/28/20 03:27 36.6 C 80 16 102/77 98 01/28/20 00:32 36.4 C L 83 16 106/74 98 (1) GIB (gastrointestinal bleeding) GI bleed type/associated pathology: unspecified gastrointestinal hemorrhage type Qualified Code(s): K92.2 - Gastrointestinal hemorrhage, unspecified (2) Anemia Anemia type: unspecified type Qualified Code(s): D64.9 - Anemia, unspecified (3) Hypertension Hypertension type: essential hypertension Qualified Code(s): I10 - Essential (primary) hypertension
[2020-01-28] MEDS: PANTOprazole 40 MG in SYRINGE 0 ML IV SCH ×2 (11:29→21:02)
[2020-01-28] MEDS: ATORVASTATIN 20 MG TAB PO SCH (11:36)
--- NOTE | 2020-01-28 11:40 | Hospitalist Progress Note ---
Date of Service January 28, 2020 Assessment & Plan (1) Atrial fibrillation with RVR: Was seen at the urgent care with complain of fatigue, weakness and SOB, then was found to be in AFIB with RVR and was sent to the ER HR on admission was above 120's Possible related to infection vs GI bleed ECG demonstrates atrial fibrillation with rapid ventricular response. Cardio on board Continue Metoprolol 25mg TID Heart rate improves ECHO showed no wall motion abnormality. EF 55 to 60%. No significant changed compared to last echo on 04/2018 Continue to hold Eliquis due to GI bleed Continue monitor in tele (2) Lower GI bleed: (3) Anemia: Had an episode of bloody bowel movement in the ER. Hgb 10.4 on admission, Hgb was 15.3 04/2018 Hgb continues to drop from 9.4 to 8.7 this morning Received 3L IV fluid Gastro on board Recommended to get EGD but patient refused it at first Son spoke to her and pt was agreed to get the EGD Plan to get EGD today Keep NPO for now Continue PPI IV for now Continue to hold Eliquis due to GI bleed Continue monitor H/H and transfuse if hgb drops below 8 Will check Iron studies (4) Possible urinary tract infection: UA positive for Nitrite, Leukocytes and bacteria Urine cx positive for gram negative bacilli- Pansensitive e-coli WBC 13K on admission, trending down to 8K normal Continue IV Rocephin daily for now, will change to PO once able to take oral (5) Hypertension: BP on admission was in the 80's/60's Received IV fluid, will continue gentle hydration Lisinopril and HCTZ on hold Continue metoprolol 25mg TID Continue monitor BP (6) DVT prophylaxis: SCDs due to GI bleeding Code Status Full Code Disposition Continue monitor in tele Monitor H/H Admission and Anticipated Discharge Date Admission Date: January 26, 2020 Subjective Pt was seen and examined Lying in bed with no distress with son at bedside Pt said that she feels fine She said that she does not have any palpitation today She said that she has not had any BM yet since the one she had in the ER She agreed to get the EGD done since her hgb continue to drop Denies any chest pain, palpitation, dizziness and SOB Physical Exam Physical Exam: General- No acute distress Head- atraumatic Eyes- PERRL, EOMI, ENT- oropharynx clear Neck- supple, no JVD Lungs- clear to auscultation Heart- irregular rhythm Abdomen- normal bowel sounds, soft, nontender Extremities- no calf tenderness Neuro- alert, oriented x 3; PERRL, EOMI; no facial palsy; no dysarthria Skin- warm & dry Results & Data Results & Data ([facility]) Vital Signs (Past 12 Hours) Vital Signs Temp Pulse Resp BP BP Pulse Ox 01/28/20 11:25 36.5 C 99 H 22 125/78 95 01/28/20 07:32 36.4 C L 94 H 18 97/82 L 94 01/28/20 03:27 36.6 C 80 16 102/77 98 01/28/20 00:32 36.4 C L 83 16 106/74 98 (1) Anemia Anemia type: unspecified type Qualified Code(s): D64.9 - Anemia, unspecified (2) Hypertension Hypertension type: essential hypertension Qualified Code(s): I10 - Essential (primary) hypertension
--- NOTE | 2020-01-28 12:22 | Anesthesiology Consultation ---
Date of Service January 28, 2020 Assessment & Plan Chart Review Chart Review: Acceptable Risk for Surgery Consults Requested none History Surgery Operation Date: 01/28/20 16:30 Proposed Procedures p Esophagogastroduodenoscopy Dr. Hatch - Rich Hatch MD Height/Weight Height: 5 ft 2 in Weight: 62.2 kg Allergies Allergy/AdvReac Type Severity Reaction Status Date / Time No Known Allergies Allergy Unverified 01/28/20 11:57 Medications Home Medications Medication Instructions Recorded Confirmed Last Taken atorvastatin 20 mg PO QAM 05/20/18 01/26/20 01/26/20 lisinopril-hydrochlorothiazide 1 tab PO QAM 05/20/18 01/26/20 01/26/20 metoprolol tartrate 25 mg PO BID #30 tab 05/20/18 01/26/20 01/26/20 apixaban [Eliquis] 5 mg PO BID 01/26/20 01/26/20 01/26/20 Active Medications Generic Name Dose Route Start Last Admin Trade Name Sandhya PRN Reason Stop Dose Admin Atorvastatin Calcium 20 mg 01/27/20 09:00 01/28/20 11:36 Lipitor PO 02/26/20 08:59 Not Given QAM VICTOR M Ceftriaxone Sodium 1,000 mg/ 50 mls @ 100 mls/hr 01/27/20 12:00 01/27/20 12:38 Dextrose IV 01/31/20 11:59 Infused Q24H VICTOR M Infusion Protocol Pantoprazole Sodium 40 mg/ 10 mls @ 5 mls/min 01/27/20 10:15 01/28/20 11:29 Syringe IV 02/26/20 10:14 5 mls/min BID VICTOR M Administration Metoprolol Tartrate 25 mg 01/27/20 14:00 01/28/20 05:30 Lopressor PO 02/26/20 13:59 25 mg Q8 VICTOR M Administration NPO Date Last Intake of Fluids: 01/27/20 Time Last Intake of Fluids: 16:30 Date Last Intake of Solids: 01/26/20 Time Last Intake of Solids: 10:00 Past Medical History Medical History Chronic anticoagulation HLD (hyperlipidemia) Hypertension Paroxysmal atrial fibrillation Past Family History Family History Father Heart disease Mother Heart disease Other No significant family history Past Surgical History Surgical History History of dilation and curettage Social History Smoking Status: Former smoker Hx Alcohol Use: No Hx Substance Use: No Physical Exam Vital Signs Last Vital Signs Temp 36.6 C 01/28/20 12:00 Pulse 92 H 01/28/20 12:00 Resp 18 01/28/20 12:00 BP 116/91 01/28/20 12:00 Pulse Ox 97 01/28/20 12:00 Testing Laboratory Results 01/28/20 05:27 01/28/20 05:27 PT 11.2 Seconds (9.0-12.0) 01/27/20 05:47 INR 1.1 (0.9-1.1) 01/27/20 05:47 APTT 29.5 Seconds (21.0-31.0) 01/26/20 12:27 Urine Color Yellow 01/26/20 13:46 Urine Appearance Slightly Cloudy (Clear) 01/26/20 13:46 Urine pH 5.0 (4.5-7.5) 01/26/20 13:46 Ur Specific [place] 1.025 (1.000-1.030) 01/26/20 13:46 Urine Protein Negative (Negative) 01/26/20 13:46 Urine Glucose (UA) Negative (Negative) 01/26/20 13:46 Urine Ketones Negative (Negative) 01/26/20 13:46 Urine Nitrite Positive (Negative) A 01/26/20 13:46 Ur Leukocyte Esterase Trace (Negative) H 01/26/20 13:46 Urine RBC 0-4 /hpf (0-4) 01/26/20 13:46 Urine WBC 10-30 /hpf (0-5) H 01/26/20 13:46 Ur Epithelial Cells >30 /lpf (0-5) H 01/26/20 13:46 01/26/20 13:46 Urine Culture - Final Urine,Clean Catch Escherichia coli 01/26/20 15:44 Aerobic Blood Culture - Preliminary Blood No growth in Aerobic bottle after 24 hours. Anaerobic Blood Culture - Preliminary No growth in Anaerobic bottle after 24 hours. 01/26/20 15:40 Aerobic Blood Culture - Preliminary Blood No growth in Aerobic bottle after 24 hours. Anaerobic Blood Culture - Preliminary No growth in Anaerobic bottle after 24 hours.
[2020-01-28] MEDS ORDERED: LIDOCAINE HCL 2% 2 ML VIAL/AMP(20MG/ML) INFIL ONE (12:28)
[2020-01-28] MEDS ORDERED: PROPOFOL IV EMULSION 10 MG/ML 20 ML VIAL IV ONE (12:28)
--- NOTE | 2020-01-28 12:47 | GI REPORT ---
Patient Name: Angely Michelle Procedure Date: 01/28/2020 12:20 PM Date of : 1940 Admit Type: Inpatient Age: 79 Gender: Female Attending MD: Rich Hatch MD Procedure: Upper GI endoscopy Providers: Rich Hacth MD Referring MD: SILVANO LEVIN Indications: Acute post hemorrhagic anemia Medicines: Monitored Anesthesia Care Complications: No immediate complications. Estimated blood loss: None. Estimated Blood Loss: Estimated blood loss: none. Procedure: Pre-Anesthesia Assessment: - Prior Anticoagulants: The patient has taken no previous anticoagulant or antiplatelet agents. - ASA Grade Assessment: III - A patient with severe systemic disease. After obtaining informed consent, the endoscope was passed under direct vision. Throughout the procedure, the patient's blood pressure, pulse, and oxygen saturations were monitored continuously. The Endoscope was introduced through the mouth, and advanced to the second part of duodenum. The upper GI endoscopy was accomplished without difficulty. The patient tolerated the procedure well. Findings: The examined esophagus was normal. No gross lesions, ulcers, erosions, nor active bleeding were noted in the stomach. A medium-sized hiatal hernia was present. The duodenal bulb and second portion of the duodenum were normal. Impression: - Normal esophagus. - No gross lesions in the stomach. - Medium-sized hiatal hernia. - Normal duodenal bulb and second portion of the duodenum. - No specimens collected. Recommendation: - [facility]. - Resume previous diet today. -will need colonoscopy to further evaluate, can do it 01/29 if still inpatient, otherwise as an outpatient Rich Hatch MD 01/28/2020 12:47:03 PM This report has been signed electronically. Note Initiated On: 01/28/2020 12:20 PM Number of Addenda: 0 I attest to the content of the Intraoperative Record and orders documented therein, exceptions below {[id number]}
--- NOTE | 2020-01-28 12:50 | Procedure Note ---
Procedure Note Date of Service January 28, 2020 GI brief note/post op note EGD findings: no blood nor active bleeding lesions through entire exam, no ulcers nor AVMs nor masses. medium hiatal hernia noted. recs: supportive care -colonoscopy 01/29 if patient amenable, otherwise as an outpatient Rich Hatch MD Gastroenterology Coding
--- NOTE | 2020-01-28 13:17 | Anesthesiology Progress Note ---
Date of Service January 28, 2020 Anesthesia Post Procedure Vital Signs Vital Signs: Temp Pulse Pulse Resp BP BP Pulse Ox 01/28/20 12:58 98 H 18 92/64 L 100 01/28/20 12:42 92 H 18 82/48 L 96 01/28/20 12:00 36.6 C 92 H 18 116/91 97 01/28/20 11:25 36.5 C 99 H 22 125/78 95 01/28/20 07:32 36.4 C L 94 H 18 97/82 L 94 01/28/20 03:27 36.6 C 80 16 102/77 98 01/28/20 00:32 36.4 C L 83 16 106/74 98 01/27/20 20:00 36.3 C L 85 16 130/63 100 01/27/20 15:57 36.8 C 101 H 16 103/69 100 01/27/20 15:54 86 01/27/20 15:06 87 01/27/20 14:15 67 103/57 L Transfer of Care Handoff Completed per policy Notes Mental Status: alert / awake / arousable and participated in evaluation Patient Amnestic to Procedure: Yes Nausea / Vomiting: adequately controlled Pain: adequately controlled Airway Patency, RR, SpO2: stable & adequate BP & HR: stable & adequate Hydration State: stable & adequate Anesthetic Complications: no major complications apparent
[2020-01-28] MEDS: cefTRIAXone SODIUM 1,000 MG in DEXTROSE 5% 50 ML IV SCH (14:19)
[2020-01-28 17:29] LABS: Hematocrit (blood only) 29.1 % (37-47); Hemoglobin 8.9 g/dL (12.0-16.0)
[2020-01-28 17:52] LABS: Ferritin 8.8 ng/ml (8-388)
[2020-01-29] MEDS: METOPROLOL TARTRATE 25 MG TAB PO SCH ×3 (06:07→21:33)
--- NOTE | 2020-01-29 06:41 | Electrocardiogram Report ---
Test Reason : Blood Pressure : / mmHG Vent. Rate : 093 BPM Atrial Rate : 000 BPM P-R Int : 000 ms QRS Dur : 074 ms QT Int : 354 ms P-R-T Axes : 000 017 020 degrees QTc Int : 440 ms Atrial fibrillation Low voltage QRS Abnormal ECG When compared with ECG of 26-JAN-2020 12:17, Criteria for Septal infarct are no longer Present Nonspecific T wave abnormality is no longer Present in Anterior leads Confirmed by Kb Diop ([id number]) on 01/29/2020 6:41:19 AM Referred By: REFERRED SELF Confirmed By:Kb Diop
[2020-01-29] MEDS: PANTOprazole 40 MG in SYRINGE 0 ML IV SCH ×2 (09:42→21:33)
[2020-01-29] MEDS: ATORVASTATIN 20 MG TAB PO SCH (09:42)
--- NOTE | 2020-01-29 10:34 | Cardiology Progress Note ---
Date of Service January 29, 2020 Assessment & Plan (1) Atrial fibrillation with RVR: (2) GIB (gastrointestinal bleeding): (3) Anemia: (4) Hypertension: Continue metoprolol 25 mg 3 times daily. Hold anticoagulation. Follow daily hemoglobin. Transfuse to maintain hemoglobin greater than 8.0 g/dL. Iron supplementation as per internal medicine. Colonoscopy 01/30/2020. Subjective Patient seen and examined at the bedside. Heart rate controlled at rest. Notes palpitations with exertion. Heme positive stool collected last evening. Denies lightheadedness, dizziness, chest discomfort, or unusual shortness of breath. EGD performed without evidence of active bleeding. Scheduled for colonoscopy tomorrow. Anticoagulation on hold. Review of Systems Review of Systems: All systems reviewed & are unremarkable except as noted in HPI & below Physical Exam Constitutional: well developed and well nourished; no acute distress and not ill appearing Respiratory: normal respiratory effort, lungs clear to auscultation Auscultation: no crackles, no rales, no rhonchi and no wheezes Cardiovascular: Rate/Rhythm: + irregularly irregular Heart Sounds: normal S1 and normal S2; no murmur Vessels: no JVD and no carotid bruit Extremities: no edema Gastrointestinal (Abdomen): Inspection/Auscultation: abdomen normal to inspection and normal bowel sounds; abdomen not distended Percuss ion/Palpation: abdomen soft; abdomen nontender, no guarding and abdomen not rigid Musculoskeletal: Head/Neck/Chest: normocephalic and head atraumatic Extremities: no cyanosis and no clubbing Skin: no rashes, no lesions, no ulcers and no jaundice Neurologic: moves all extremities; no focal motor deficits Speech / Cognition: normal speech Motor/Sensory: no tremor Psychiatric: A+Ox3, euthymic affect Results & Data Vital Signs (Past 12 Hours) Vital Signs Temp Pulse Resp BP Pulse Ox 01/29/20 07:00 36.4 C L 85 20 115/42 L 98 01/29/20 03:49 36.3 C L 82 18 105/45 L 97 01/28/20 23:26 36.3 C L 86 20 116/67 98 (1) GIB (gastrointestinal bleeding) GI bleed type/associated pathology: unspecified gastrointestinal hemorrhage type Qualified Code(s): K92.2 - Gastrointestinal hemorrhage, unspecified (2) Anemia Anemia type: unspecified type Qualified Code(s): D64.9 - Anemia, unspecified (3) Hypertension Hypertension type: essential hypertension Qualified Code(s): I10 - Essential (primary) hypertension
--- NOTE | 2020-01-29 10:44 | Gastroenterology Progress Note ---
Date of Service January 29, 2020 Assessment & Plan (1) GIB (gastrointestinal bleeding): (2) Anemia: 1. Clear liquid diet today. 2. Continue Protonix 40 mg BID. 3. GoLytely bowel prep to start this evening. 4. Colonoscopy with Dr. Hatch tomorrow. 5. Additional recommendations will be made pending results of testing. Thank you for allowing us to participate in the care of this patient. If you have any questions or concerns, please do not hesitate to contact us. Admission and Anticipated Discharge Date Admission Date: January 26, 2020 Subjective Patient reports doing well after EGD yesterday. No findings to explain the anemia. She is agreeable to proceed with colonoscopy tomorrow. On clear liquid diet today for bowel preparation this evening. H&H remains stable. Continues Protonix 40 mg BID. Review of Systems Constitutional: no fever and no chills Respiratory: no cough and no dyspnea Cardiovascular: no chest pain and no palpitations Gastrointestinal: no abdominal pain, no nausea and no vomiting Psychiatric: no problem reported Physical Exam Constitutional: WD/WN, vitals as above Eyes: EOM intact bilaterally Respiratory: normal respiratory effort, lungs clear to auscultation Cardiovascular: Rate/Rhythm: + irregularly irregular Heart Sounds: no murmur Gastrointestinal (Abdomen): normal bowel sounds, soft, nontender, no hepatosplenomegaly Inspection/Auscultation: abdomen not distended Musculoskeletal: Extremities: no cyanosis Skin: no rashes, warm and dry Neurologic: moves all extremities Psychiatric: A+Ox3, euthymic affect Results & Data Results & Data ([facility]) Vital Signs (Past 12 Hours) Vital Signs Temp Pulse Resp BP Pulse Ox 01/29/20 07:00 36.4 C L 85 20 115/42 L 98 01/29/20 03:49 36.3 C L 82 18 105/45 L 97 01/28/20 23:26 36.3 C L 86 20 116/67 98 PG Care Time/CCT Total # of Minutes Spent Total Time Spent with Patient: Total time spent is greater than 50% in coordination of care (as documented) at patient's floor/unit and/or counseling patient: Coding Level of Care Code 06903 Subseq Hosp Care Lvl 3 Diagnoses GIB (gastrointestinal bleeding) K92.2 GI bleed type/associated pathology: unspecified gastrointestinal hemorrhage type Anemia D64.9 Anemia type: unspecified type (1) GIB (gastrointestinal bleeding) GI bleed type/associated pathology: unspecified gastrointestinal hemorrhage type Qualified Code(s): K92.2 - Gastrointestinal hemorrhage, unspecified (2) Anemia Anemia type: unspecified type Qualified Code(s): D64.9 - Anemia, unspecified
--- NOTE | 2020-01-29 11:11 | Hospitalist Progress Note ---
Date of Service January 29, 2020 Assessment & Plan (1) Atrial fibrillation with RVR: Was seen at the urgent care with complain of fatigue, weakness and SOB, then was found to be in AFIB with RVR and was sent to the ER HR on admission was above 120's Possible related to infection vs GI bleed ECG demonstrates atrial fibrillation with rapid ventricular response. Cardio on board Currently on metoprolol 25mg TID ECHO showed no wall motion abnormality. EF 55 to 60%. No significant changed com pared to last echo on 04/2018 Continue to hold Eliquis due to GI bleed pending workup Continue monitor in tele (2) Lower GI bleed: (3) Anemia: Had an episode of bloody bowel movement in the ER. Hgb 10.4 on admission, Hgb was 15.3 04/2018 Hgb continues to drop till 8.9 yesterday Get CBC Received 3L IV fluid GI on board Recommended to get EGD but patient initially refused Patient later agreed after son spoke to her EGD done on 01/28/20 showed normal esophagus/duodenum, no gastric lesion, medium sized hiatal hernia Colonoscopy planned for tomorrow Currently on clears. NPO PMN for colonoscopy Continue PPI IV BID for now Continue to hold Eliquis due to GI bleed (4) Possible urinary tract infection: UA positive for Nitrite, Leukocytes and bacteria Urine cx positive for gram negative bacilli- Pansensitive e-coli WBC 13K on admission, trending down Currently on IV Rocephin daily for now, will change to PO after colonscopy tomorrow to complete therapy (5) Hypertension: BP on admission was in the 80's/60's Received IV fluid Lisinopril and HCTZ on hold BP currently stable Continue metoprolol 25mg TID Continue monitor BP (6) DVT prophylaxis: SCDs due to GI bleeding Code Status Full Code Admission and Anticipated Discharge Date Admission Date: January 26, 2020 Subjective Patient seen and examined Denied any dizziness, chest pain, palpitation, cough Reports mild shortness of breath with exertion Denied any orthopnea, PND, leg swelling Denied any nausea, vomiting, abdominal pain Reported small brown bowel movement yesterday that was stool occult blood + Denied any fevers, chills Telemetry showed afibs with heart rates going upto 150 (especially with exertion) Physical Exam Constitutional: + well hydrated; no acute distress Eyes: PERRL, conjunctivae normal, anicteric sclerae ENMT: external ear and nose normal, oropharynx normal Respiratory: normal respiratory effort, lungs clear to auscultation Cardiovascular: Irregularly irregular pulse, S1-2. no pedal edema Gastrointestinal (Abdomen): normal bowel sounds, soft, nontender, no hepatosplenomegaly Musculoskeletal: no cyanosis or clubbing, extremities motor strength 5/5 Neurologic: PERRL, EOMI, accommodation nl, no face palsy, no dysarthria Psychiatric: A+Ox3, euthymic affect Results & Data Results & [facility] ([facility]) Vital Signs (Past 12 Hours) Vital Signs Temp Pulse Resp BP Pulse Ox 01/29/20 07:00 36.4 C L 85 20 115/42 L 98 01/29/20 03:49 36.3 C L 82 18 105/45 L 97 01/28/20 23:26 36.3 C L 86 20 116/67 98 Laboratory Results Laboratory Results - last 24 hr 01/28/20 01/28/20 01/28/20 17:10 17:10 23:57 Hgb 8.9 L Hct 29.1 L Iron 13 L TIBC 407 Transferrin 273 Ferritin 8.8 Stool Occult Bld Scrn Positive A (1) Anemia Anemia type: unspecified type Qualified Code(s): D64.9 - Anemia, unspecified (2) Hypertension Hypertension type: essential hypertension Qualified Code(s): I10 - Essential (primary) hypertension
[2020-01-29 11:20] LABS: Hemoglobin 8.8 g/dL (12.0-16.0); Mean Corpuscular Hemoglobin 26.2 pg (25-34); Mean Corpuscular Hgb Conc 30.3 g/dL (32-36); Mean Corpuscular Volume 86.3 fL (80-100); Mean Platelet Volume 9.3 fL (7.4-10.4); Platelet Count 402 K/uL (130-400); RDW Coefficient of Variation 15.2 % (11.5-14.5); RDW Standard Deviation 47.8 fL (36.4-46.3); Red Blood Count 3.36 M/uL (4.2-5.4); White Blood Count 9.19 K/uL (4.8-10.8)
[2020-01-29] MEDS: cefTRIAXone SODIUM 1,000 MG in DEXTROSE 5% 50 ML IV SCH (13:34)
[2020-01-29] MEDS: LAVAGE SOLUTION 4000ML PO SCH (18:43)
[2020-01-29] MEDS ORDERED: METOPROLOL TARTRATE 1 MG/ML VIAL IV STA ×2 (20:13→20:16)
[2020-01-29] MEDS ORDERED: METOPROLOL TARTRATE 1 MG/ML VIAL IV ONE (20:23)
[2020-01-30] MEDS: LAVAGE SOLUTION 4000ML PO SCH (02:51)
[2020-01-30] MEDS: METOPROLOL TARTRATE 25 MG TAB PO SCH ×3 (06:08→17:38)
[2020-01-30 06:20] LABS: Hematocrit (blood only) 28.7 % (37-47); Hemoglobin 8.6 g/dL (12.0-16.0); Mean Corpuscular Hemoglobin 26.1 pg (25-34); Mean Platelet Volume 9.6 fL (7.4-10.4); Platelet Count 388 K/uL (130-400); RDW Coefficient of Variation 15.3 % (11.5-14.5); RDW Standard Deviation 48.7 fL (36.4-46.3)
[2020-01-30 07:01] LABS: BUN Creatinine Ratio 13.9 (10-20); Calcium 8.3 mg/dl (8.5-10.1); Est GFR (African American) 48.6; Est GFR (Non-African American) 41.9; Potassium 4.1 mmol/L (3.5-5.1)
--- NOTE | 2020-01-30 08:07 | Anesthesiology Consultation ---
Date of Service January 30, 2020 Assessment & Plan (1) Encounter for pre-operative examination: Chart Review Chart Review: Acceptable Risk for Surgery Consults Requested none ASA ASA3 Proposed Anesthesia Anesthesia Type: MAC Risk / Benefits Reviewed With: PT / POA / Parent / Guardian, Accepts Plan and Informed Consent Obtained History Surgery Operation Date: 01/28/20 16:30 Proposed Procedures p Esophagogastroduodenoscopy Dr. Holden Hatch MD Operation Date: 01/30/20 15:30 Proposed Procedures p Colonoscopy Dr. Holden Hatch MD Height/Weight Height: 5 ft 2 in Weight: 64 kg Allergies Allergy/AdvReac Type Severity Reaction Status Date / Time No Known Allergies Allergy Unverified 01/28/20 11:57 Medications Home Medications Medication Instructions Recorded Confirmed Last Taken atorvastatin 20 mg PO QAM 05/20/18 01/26/20 01/26/20 lisinopril-hydrochlorothiazide 1 tab PO QAM 05/20/18 01/26/20 01/26/20 metoprolol tartrate 25 mg PO BID #30 tab 05/20/18 01/26/20 01/26/20 apixaban [Eliquis] 5 mg PO BID 01/26/20 01/26/20 01/26/20 Active Medications Generic Name Dose Route Start Last Admin Trade Name Freq PRN Reason Stop Dose Admin Atorvastatin Calcium 20 mg 01/27/20 09:00 01/30/20 10:32 Lipitor PO 02/26/20 08:59 Not Given QAM VICTOR M Ceftriaxone Sodium 1,000 mg/ 50 mls @ 100 mls/hr 01/27/20 12:00 01/29/20 14:14 Dextrose IV 01/31/20 11:59 Infused Q24H VICTOR M Infusion Protocol Pantoprazole Sodium 40 mg/ 10 mls @ 5 mls/min 01/27/20 10:15 01/30/20 08:35 Syringe IV 02/26/20 10:14 5 mls/min BID VICTOR M Administration Sodium Chloride 1,000 mls @ 80 mls/hr 01/30/20 08:00 01/30/20 08:35 Nss 1000ml IV 02/29/20 07:59 80 mls/hr .[id number] VICTOR M Administration NPO Date Last Intake of Fluids: 07/06/20 Time Last Intake of Fluids: 16:30 Date Last Intake of Solids: 01/26/20 Time Last Intake of Solids: 10:00 Past Medical History Medical History Chronic anticoagulation HLD (hyperlipidemia) Hypertension Paroxysmal atrial fibrillation Exercise / Class Metabolic Activity III < 4 Walking/Shop/Light housework Past Family History Family History Father Heart disease Mother Heart disease Other No significant family history Past Surgical History Surgical History History of dilation and curettage Past Anesthesia History No Hx of Anesthesia Complications and No Family Hx of Anesthesia Complications History of PONV No Hx of PONV and No Hx of Motion Sickness Social History Smoking Status: Former smoker Hx Alcohol Use: No Hx Substance Use: No Physical Exam Vital Signs Last Vital Signs Temp 97.5 F L 01/30/20 07:39 Pulse 93 H 01/30/20 07:39 Resp 20 01/30/20 07:39 BP 106/80 01/30/20 07:39 Pulse Ox 91 01/30/20 07:39 ENMT Mouth: no dentition abnormality Thyromental Distance: > or= 3.5 Finger Breadths Mallampati Class: II Neck normal visual inspection Respiratory normal respiratory effort Auscultation: lungs clear to auscultation bilaterally Cardiovascular Rate/Rhythm: regular rate and regular rhythm Testing Laboratory Results 01/30/20 05:44 01/30/20 05:44 PT 11.2 Seconds (9.0-12.0) 01/27/20 05:47 INR 1.1 (0.9-1.1) 01/27/20 05:47 APTT 29.5 Seconds (21.0-31.0) 01/26/20 12:27 Urine Color Yellow 01/26/20 13:46 Urine Appearance Slightly Cloudy (Clear) 01/26/20 13:46 Urine pH 5.0 (4.5-7.5) 01/26/20 13:46 Ur Specific [place] 1.025 (1.000-1.030) 01/26/20 13:46 Urine Protein Negative (Negative) 01/26/20 13:46 Urine Glucose (UA) Negative (Negative) 01/26/20 13:46 Urine Ketones Negative (Negative) 01/26/20 13:46 Urine Nitrite Positive (Negative) A 01/26/20 13:46 Ur Leukocyte Esterase Trace (Negative) H 01/26/20 13:46 Urine RBC 0-4 /hpf (0-4) 01/26/20 13:46 Urine WBC 10-30 /hpf (0-5) H 01/26/20 13:46 Ur Epithelial Cells >30 /lpf (0-5) H 01/26/20 13:46 01/26/20 15:44 Aerobic Blood Culture - Preliminary Blood No growth in Aerobic bottle after 48 hours. Anaerobic Blood Culture - Preliminary No growth in Anaerobic bottle after 48 hours. 01/26/20 15:40 Aerobic Blood Culture - Preliminary Blood No growth in Aerobic bottle after 48 hours. Anaerobic Blood Culture - Preliminary No growth in Anaerobic bottle after 48 hours. 01/26/20 13:46 Urine Culture - Final Urine,Clean Catch Escherichia coli Electrocardiogram Date: 01/28/20 Atrial fibrillation, rate 93 bpm Low voltage QRS Abnormal ECG When compared with ECG of 26-JAN-2020 12:17, Criteria for Septal infarct are no longer Present Nonspecific T wave abnormality is no longer Present in Anterior leads Confirmed by Kb Diop ([id number]) on 01/29/2020 6:41:19 AM Chest X-Ray Date: 01/26/20 Findings: + NAD Echocardiogram Date: 01/27/20 The rhythm is atrial fibrillation with controlled ventricular response EF 55-60% LA is mildly dilated AV sclerosis mild Mild AR Mild MR Mod TR Estimated systolic pulmonary arterial pressure is 38mmHg Compared to prior study dated 05/22/18, there is no signficiant change
[2020-01-30] MEDS: PANTOprazole 40 MG in SYRINGE 0 ML IV SCH ×2 (08:35→20:53)
[2020-01-30] MEDS: SODIUM CHLORIDE 0.9% 1000ML 1,000 ML IV SCH ×2 (08:35→20:53)
--- NOTE | 2020-01-30 09:17 | History & Physical Bridge Note ---
Date of Service January 30, 2020 History & Physical Bridge Note I have examined the patient, reviewed the History & Physical and in the interval since the performance of the History & Physical I have noted the following changes of clinical significance: no changes noted. Patient consumed greater than 50% of bowel prep and is reporting clear liquid stools. PE: A&O x3. Lungs CTA bilaterally. Heart rate irregularly irregular. +hyperactive bowel sounds. Abdomen is soft, nontender and nondistended. A/P: Proceed with colonoscopy with Dr. Hatch today. Additional recommendations pending results of testing.
[2020-01-30] MEDS: ATORVASTATIN 20 MG TAB PO SCH (10:32)
--- NOTE | 2020-01-30 10:40 | Cardiology Progress Note ---
Date of Service January 30, 2020 Assessment & Plan (1) Atrial fibrillation with RVR: (2) GIB (gastrointestinal bleeding): (3) Anemia: (4) Hypertension: I suspect patient is mildly volume depleted due to bowel prep and n.p.o. status. Titrate metoprolol to 25 mg every 6 hours. Encourage oral hydration post colonoscopy. Hold anticoagulation. Follow daily hemoglobin. Transfuse to maintain hemoglobin greater than 8.0 g/dL. Iron supplementation as per internal medicine. Colonoscopy today, 01/30/2020 Subjective Patient seen and examined the bedside. Periods of rapid event response recorded overnight. Patient notes occasional palpitations. Hemoglobin is stable. No signs of recurrent GI blood loss. Tolerated bowel prep overnight. Scheduled for colonoscopy today. Offers no other concerns/complaints at this time Review of Systems Review of Systems: All systems reviewed & are unremarkable except as noted in HPI & below Physical Exam Constitutional: well developed and well nourished; no acute distress and not ill appearing Respiratory: normal respiratory effort, lungs clear to auscultation Auscultation: no crackles, no rales, no rhonchi and no wheezes Cardiovascular: Rate/Rhythm: + irregularly irregular Heart Sounds: normal S1 and normal S2; no murmur Vessels: no JVD and no carotid bruit Extremities: no edema Gastrointestinal (Abdomen): Inspection/Auscultation: abdomen normal to inspection and normal bowel sounds; abdomen not distended Percussion/Palpation: abdomen soft; abdomen nontender, no guarding and abdomen not rigid Musculoskeletal: Head/Neck/Chest: normocephalic and head atraumatic Extremities: no cyanosis and no clubbing Skin: no rashes, no lesions, no ulcers and no jaundice Neurologic: moves all extremities; no focal motor deficits Speech / Cognition: normal speech Motor/Sensory: no tremor Psychiatric: A+Ox3, euthymic affect Results & Data Vital Signs (Past 12 Hours) Vital Signs Temp Pulse Pulse Resp BP BP Pulse Ox 01/30/20 07:39 36.4 C L 93 H 20 106/80 91 01/30/20 02:48 36.4 C L 100 H 18 112/80 96 01/29/20 23:13 36.6 C 92 H 18 101/66 97 01/29/20 23:07 124 H (1) GIB (gastrointestinal bleeding) GI bleed type/associated pathology: unspecified gastrointestinal hemorrhage type Qualified Code(s): K92.2 - Gastrointestinal hemorrhage, unspecified (2) Anemia Anemia type: unspecified type Qualified Code(s): D64.9 - Anemia, unspecified (3) Hypertension Hypertension type: essential hypertension Qualified Code(s): I10 - Essential (primary) hypertension
--- NOTE | 2020-01-30 12:02 | GI REPORT ---
Patient Name: Angely Michelle Procedure Date: 01/30/2020 11:32 AM Date of : 1940 Admit Type: Inpatient Age: 79 Gender: Female Attending MD: Rich Hatch MD Procedure: Colonoscopy Providers: Rich Hatch MD Referring MD: Referred Self Indications: Gastrointestinal bleeding, Unexplained iron deficiency anemia Medicines: Monitored Anesthesia Care Complications: No immediate complications. Estimated blood loss: None. Estimated Blood Loss: Estimated blood loss: none. Procedure: Pre-Anesthesia Assessment: - Prior Anticoagulants: The patient has taken no previous anticoagulant or antiplatelet agents. - ASA Grade Assessment: III - A patient with severe systemic disease. After I obtained informed consent, the scope was passed under direct vision. Throughout the procedure, the patient's blood pressure, pulse, and oxygen saturations were monitored continuously. The Colonoscope was introduced through the anus with the intention of advancing to the cecum. The scope was advanced to the sigmoid colon before the procedure was aborted. Medications were given. The colonoscopy was performed without difficulty. The patient tolerated the procedure well. The quality of the bowel preparation was good. Findings: A frond-like/villous, fungating, infiltrative and ulcerated completely obstructing large mass was found in the recto-sigmoid colon 10 cm from the anal verge. The mass was circumferential and friable. colonoscope was not able to pass through the lumen due to the obstructing mass. Biopsies were taken with a cold forceps for histology. Estimated blood loss: none. Non-bleeding internal hemorrhoids were found. The hemorrhoids were medium-sized. 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 Biopsied. - Non-bleeding internal hemorrhoids. Recommendation: - Await pathology results. - [facility] patient [facility] care. - Clear liquid diet today. Rich Hatch MD 01/30/2020 12:01:47 PM This report has been signed electronically. Note Initiated On: 01/30/2020 11:32 AM Number of Addenda: 0 I attest to the content of the Intraoperative Record and orders documented therein, exceptions below {[id number]}
--- NOTE | 2020-01-30 12:04 | Procedure Note ---
Procedure Note Date of Service January 30, 2020 GI brief procedure note colonoscopy: large fungating, friable mass in the rectosigmoid colon causing near complete obstruction, biopsied. medium internal hemorrhoids also noted. Recs: --CT chest/Abdomen/pelvis for staging --surgery consultation for possible resection --supportive care --await path results --clear liquids for now rest as per primary team Rich Hatch MD Gastroenterology Coding
--- NOTE | 2020-01-30 12:14 | Anesthesiology Progress Note ---
Date of Service January 30, 2020 Anesthesia Post Procedure Vital Signs Vital Signs: Temp Pulse Pulse Resp BP BP BP 01/30/20 12:01 79 20 94/57 L 01/30/20 11:10 97.7 F 75 18 121/59 L 01/30/20 07:39 97.5 F L 93 H 20 106/80 01/30/20 02:48 97.5 F L 100 H 18 112/80 01/29/20 23:13 97.9 F 92 H 18 101/66 01/29/20 23:07 124 H 01/29/20 21:30 95 H 100/64 01/29/20 20:29 120 H 141/87 H 01/29/20 20:26 120 H 141/87 H 01/29/20 19:01 97.2 F L 138 H 18 141/97 H 01/29/20 16:00 97 H 01/29/20 15:42 97.3 F L 94 H 18 112/64 Pulse Ox 01/30/20 12:01 95 01/30/20 11:10 98 01/30/20 07:39 91 01/30/20 02:48 96 01/29/20 23:13 97 01/29/20 23:07 01/29/20 21:30 01/29/20 20:29 01/29/20 20:26 01/29/20 19:01 99 01/29/20 16:00 01/29/20 15:42 98 Transfer of Care Handoff Completed per policy Notes Mental Status: alert / awake / arousable and participated in evaluation Patient Amnestic to Procedure: Yes Nausea / Vomiting: adequately controlled Pain: adequately controlled Airway Patency, RR, SpO2: stable & adequate BP & HR: stable & adequate Hydration State: stable & adequate Anesthetic Complications: no major complications apparent and Pt Satisfied with anesthetic care
--- NOTE | 2020-01-30 14:01 | Hospitalist Progress Note ---
Date of Service January 30, 2020 Assessment & Plan (1) Atrial fibrillation with RVR: Was seen at the urgent care with complain of fatigue, weakness and SOB, then was found to be in AFIB with RVR and was sent to the ER HR on admission was above 120's Possible related to infection vs GI bleed ECG demonstrates atrial fibrillation with rapid ventricular response. Cardio on board Currently on metoprolol 25mg TID ECHO showed no wall motion abnormality. EF 55 to 60%. No significant changed com pared to last echo on 04/2018 Continue to hold Eliquis due to GI bleed pending workup Continue monitor in tele (2) Lower GI bleed: (3) Anemia: Had an episode of bloody bowel movement in the ER. Hgb 10.4 on admission, Hgb was 15.3 04/2018 Hgb has been stable in 8s in the past 48h Recommended to get EGD but patient initially refused Patient later agreed after son spoke to her EGD done on 01/28/20 showed normal esophagus/duodenum, no gastric lesion, medium sized hiatal hernia Colonoscopy showed an obstructive fungating infiltrative mass 10cm from anal verge Possibly malignant. Patient has never had a colonoscopy before Get CT chest/abd/pelvis w/constrast for further eval and staging. Patient has CKD3 but ok with contrast after discussing risks Get Gen surg consult Liquid diet for now Continue to hold Eliquis due to GI bleed and daughter were at bedside. Discussed in details the findings per GI report and the plan Will eventually need oncology evaluation Pathology report from colonoscopy needs follow up as well (4) Possible urinary tract infection: UA positive for Nitrite, Leukocytes and bacteria Urine cx positive for gram negative bacilli- Pansensitive e-coli WBC 13K on admission, trending down Currently on IV Rocephin daily for now, will change to PO after colonscopy tomorrow to complete therapy (5) Hypertension: BP on admission was in the 80's/60's Received IV fluid Lisinopril and HCTZ on hold BP currently stable Continue metoprolol 25mg TID Continue monitor BP (6) DVT prophylaxis: SCDs due to GI bleeding Code Status Full Code Admission and Anticipated Discharge Date Admission Date: January 26, 2020 Subjective Patient seen and examined Patient denies any complaints today. Denied any dizziness, chest pain, shortness of breath, cough Denied abd pain, nausea, vomiting or anorexia Has not had any bloody bowel movement Had colonoscopy today. Found to have an obstructive fungating infiltrative mass 10cm from anal verge. Physical Exam Constitutional: + well hydrated; no acute distress Eyes: PERRL, conjunctivae normal, anicteric sclerae ENMT: external ear and nose normal, oropharynx normal Respiratory: normal respiratory effort, lungs clear to auscultation Gastrointestinal (Abdomen): normal bowel sounds, soft, nontender, no hepatosplenomegaly Musculoskeletal: no cyanosis or clubbing, extremities motor strength 5/5 Neurologic: PERRL, EOMI, accommodation nl, no face palsy, no dysarthria Psychiatric: A+Ox3, euthymic affect Results & Data Results & Data ([facility]) Vital Signs (Past 12 Hours) Vital Signs Temp Pulse Resp BP BP Pulse Ox 01/30/20 12:30 89 20 113/61 94 01/30/20 12:16 79 20 105/44 L 95 01/30/20 12:01 79 20 94/57 L 95 01/30/20 11:10 36.5 C 75 18 121/59 L 98 01/30/20 07:39 36.4 C L 93 H 20 106/80 91 01/30/20 02:48 36.4 C L 100 H 18 112/80 96 Laboratory Results Laboratory Results - last 24 hr 01/30/20 01/30/20 05:44 05:44 WBC 8.10 RBC 3.30 L Hgb 8.6 L Hct 28.7 L MCV 87.0 MCH 26.1 MCHC 30.0 L RDW Std Deviation 48.7 H RDW Coeff of Uma 15.3 H Plt Count 388 MPV 9.6 Sodium 142 Potassium 4.1 Chloride 112 H Carbon Dioxide 21 Anion Gap 9.0 BUN 17 Creatinine 1.21 H Est Cr Clr Drug Dosing 32.0 Est GFR ( Amer) 48.6 Est GFR (Non-Af Amer) 41.9 BUN/Creatinine Ratio 13.9 Glucose 113 H Calcium 8.3 L (1) Anemia Anemia type: unspecified type Qualified Code(s): D64.9 - Anemia, unspecified (2) Hypertension Hypertension type: essential hypertension Qualified Code(s): I10 - Essential (primary) hypertension
[2020-01-30] MEDS ORDERED: METOPROLOL TARTRATE 1 MG/ML VIAL IV PRN (16:26)
--- NOTE | 2020-01-30 17:29 | CT Scan Report ---
CHEST CT WITH CONTRAST: CT ABDOMEN AND PELVIS WITH IV AND ORAL CONTRAST HISTORY: Colonic mass reportedly seen on recent colonoscopy. Staging exam. Colonic mass on colonscop y. Cancer staging TECHNIQUE: Multiaxial CT images of the chest, abdomen and pelvis were performed following the IV admi nistration of 93 cc of Optiray 320. A dose lowering technique was utilized adhering to the principl es of JOSEPHINE. COMPARISON: None. FINDINGS: CT CHEST: Unremarkable thyroid. Nonspecific mildly enlarged right hilar lymph node, 1.4 x 1.0 cm. Moderate card iomegaly. No pericardial effusion. Coronary artery calcifications. No thoracic aortic aneurysm or dis section. 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 Dilation of the main pulmonary a rtery. No evidence of pulmonary thromboembolic disease. Trace pleural effusions. Moderate to severe emphysema. No pneumothorax or overt pulmonary edema. Bron chial wall thickening suggestive of bronchitis. Mild bibasilar subsegmental consolidative and groundg lass opacities favor atelectasis. There are no suspicious pulmonary nodules or masses to suggest meta stasis. Central airways are patent. Soft tissues are within normal limits. Degenerative changes of th e shoulders and spine. CT ABDOMEN/PELVIS: No pneumatosis or pneumoperitoneum. The spleen, pancreas and adrenal glands are unremarkable. Hyperde nse material is noted within the gallbladder suggestive of cholelithiasis. Vicarious excretion could appear similarly. Gallbladder is mildly contracted. There is mild pericholecystic fluid. Indeterminat e 1.3 cm lesion with suggestion of peripheral enhancement involves the posterior right hepatic lobe. Mild marginal nodularity of the liver. Mild cortical thinning of the kidneys. There are a few scatter ed subcentimeter hypodensities suggestive of probable renal cysts. No obstructive uropathy. Partially decompressed urinary bladder. Unremarkable uterus and adnexa. Extensive mixed plaque of the abdomina l aorta. No bowel obstruction. Probable lipoma involves the third portion the duodenum, 7 mm. Colonic divertic ulosis. There is a 4.1 cm segment of rectum which demonstrates irregular wall thickening (for example see image 312 series 7 and states sagittal image). There is perirectal stranding with trace free flu id within this distribution. There are multiple prominent lymph nodes of the rectal mesocolon measuri ng up to 7 mm with prominence of the perirectal vasculature. 6 mm prominent presacral lymph node, yobany ge 266 series 7. Mild generalized body wall edema. Degenerative changes of the spine, pelvis and hips . No suspicious lytic or blastic osseous lesions identified. No acute fracture. Lumbar levoscoliosis. IMPRESSION: 1. 4.1 cm segment of the rectum demonstrates irregular thickened wall, likely correlating with the re ported known colonic neoplasm. There is stranding and edema within the perirectal tissues with multip le prominent perirectal lymph nodes suggestive of lymphatic metastasis. 2. No bowel obstruction or pneumoperitoneum. 3. Solitary 1.3 cm lesion within the peripheral right hepatic lobe demonstrates apparent peripheral e nhancement and is pathologically indeterminate. This is suspicious for possible solitary hepatic meta stasis. 4. Gallbladder is mildly contracted with possible cholelithiasis and pericholecystic edema. This coul d be correlated with a follow-up ultrasound. 5. 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 6. Single mildly enlarged right hilar lymph node, nonspecific. 7. Emphysema. 8. Additional findings as above. ACT 112: Positive. There are findings on this exam that require communication between the performing entity and the patient following Patient Test Result Information Act ([place] Act 112) guidelines. Electronically signed by: Jesus Ivory M.D. 01/30/2020 5:27 PM
[2020-01-30] MEDS: cefTRIAXone SODIUM 1,000 MG in DEXTROSE 5% 50 ML IV SCH (18:15)
--- NOTE | 2020-01-30 19:25 | Surgery Consultation ---
Date of Consultation January 30, 2020 Assessment & Plan (1) Rectal mass: pt is a 79 year-old female who was admitted to hospital for weakness, anemia, colonoscopy finding rectal mass IMP: rectal mass and liver nodule base on pt's rectal mass possible with liver metastatic disease, recommend to transfer to tertiary colorectal surgeon with liver surgeon to do her surgery, D/W benefits, risk and alternatives of transfer, pt and her understood, they agree with transfer, I answered all questions, D/W hospitalist, Supervising Physician Co-Signing Physician Notes Agree with JANINE Coyne as above No BM's today, feeling better Abd: Soft, NT, ND, +BS Continue Protonix 40 mg IV BID Continue supportive care, she is not interested in endoscopic workup at this time. History of Present Illness Attending Physician: Kamilah Lares MD History of Present Illness Chief Complaint: Weakness, shortness of breath Primary Care Provider: Shruthi Crowell DO 79-year-old female with PMH paroxysmal atrial fibrillation anticoagulant Eliquis, HTN, HLD, and other problems listed below who presents the ED for evaluation of weakness and shortness of breath. Patient reports she has been feeling weak and fatigued for the past few days. Yesterday, she reports she felt short of breath with exertion. She was able to monitor her blood pressure and heart rate at home and found that her heart rate was up and her blood pressure was low. She was seen in outpatient clinic and had an EKG that showed atrial fibrillation with RVR, she was therefore sent to the ED for further evaluation. While in the ED, patient had a bowel movement with some bright red blood. Patient reports this happens occasionally at home. Denies any dark tarry stools. No abdominal pain, nausea, vomiting, diarrhea. She denies chest pain and palpitations. She reports some mild lightheadedness with standing however denies any syncopal event. She denies any other recent illnesses, fevers, chills. No urinary symptoms. In the ED, patient was found to be in atrial fibrillation with RVR with rates 110s-120s, hypotension with systolic BP as low as 77/63. WBC 13 K, Hgb 10.4. UA suggest UTI. Patient received full dose aspirin, IV ceftriaxone, and IVF. I ( Vikki Yang MD ) got a call for consult rectal mass, I reviewed pt's H/P, labs, CT scan and coloscopy with pt and her , pt denies abdominal pain, passed gas, last BM yesterday, Allergies Allergy/AdvReac Type Severity Reaction Status Date / Time No Known Allergies Allergy Unverified 01/26/20 13:24 Home Medications Home Medications Medication Instructions Recorded Confirmed Type atorvastatin 20 mg PO QAM 05/20/18 01/26/20 History lisinopril-hydrochlorothiazide 1 tab PO QAM 05/20/18 01/26/20 History metoprolol tartrate 25 mg PO BID #30 tab 05/20/18 01/26/20 Rx apixaban [Eliquis] 5 mg PO BID 01/26/20 01/26/20 History Past Med/Surg History Medical History Chronic anticoagulation HLD (hyperlipidemia) Hypertension Paroxysmal atrial fibrillation Surgical History History of dilation and curettage Family History Father Heart disease Mother Heart disease Other No significant family history Social History Preferred Language: Jordanian Communication Ability: Effective Sport Internship Required: No Beliefs That Will Affect Care: None Current Living Situation: Spouse Other Information That Helps Us Care for You: No Feels Safe at Home: Yes Safety Concerns: Feels Safe At This Time Smoking Status: Former smoker Hx Alcohol Use: No Hx Substance Use: No Review of Systems Review of Systems: ROS per HPI, all other systems reviewed and negative Allergies Allergy/AdvReac Type Severity Reaction Status Date / Time No Known Allergies Allergy Unverified 01/28/20 11:57 Home Medications Home Medications Medication Instructions Recorded Confirmed Type atorvastatin 20 mg PO QAM 05/20/18 01/26/20 History lisinopril-hydrochlorothiazide 1 tab PO QAM 05/20/18 01/26/20 History metoprolol tartrate 25 mg PO BID #30 tab 05/20/18 01/26/20 Rx apixaban [Eliquis] 5 mg PO BID 01/26/20 01/26/20 History Patient History Medical History Chronic anticoagulation HLD (hyperlipidemia) Hypertension Paroxysmal atrial fibrillation Surgical History History of dilation and curettage Family History Father Heart disease Mother Heart disease Other No significant family history Social History Preferred Language: Jordanian Communication Ability: Effective Sport Internship Required: No Beliefs That Will Affect Care: None marital status: Current Living Situation: Spouse Other Information That Helps Us Care for You: No Feels Safe at Home: Yes Safety Concerns: Feels Safe At This Time Smoking Status: Former smoker Hx Alcohol Use: No Hx Substance Use: No Review of Systems Review of Systems: All systems reviewed & are unremarkable except as noted in HPI & below Constitutional: as per Subjective / HPI Eyes: as per Subjective / HPI Ear, Nose, Mouth, Throat: as per Subjective / HPI Respiratory: as per Subjective / HPI Cardiovascular: as per Subjective / HPI Additional Comments: HTN, A-fib Gastrointestinal: as per Subjective / HPI GI bleeding Genitourinary: as per Subjective / HPI Musculoskeletal: as per Subjective / HPI Integumentary: as per Subjective / HPI Neurologic: as per Subjective / HPI Endocrine: as per Subjective / HPI Hematologic / Lymphatic: as per Subjective / HPI Physical Exam Constitutional: WD/WN, vitals as above well developed and well nourished Eyes: PERRL, conjunctivae normal, anicteric sclerae ENMT: external ear and nose normal, oropharynx normal Neck: trachea midline, no thyromegaly Respiratory: normal respiratory effort, lungs clear to auscultation Cardiovascular: RRR, no murmur, no edema Rate/Rhythm: regular rate and regular rhythm Heart Sounds: normal S1 and normal S2 Gastrointestinal (Abdomen): normal bowel sounds, soft, nontender, no hepatosplenomegaly Inspection/Auscultation: abdomen normal to inspection NT, ND BS + Musculoskeletal: no cyanosis or clubbing, extremities motor strength 5/5 Skin: no rashes, warm and dry Neurologic: patellar DTR's 2+ bilat, sensation intact Psychiatric: Orientation: alert and oriented x 3 Results & Data Vital Signs (Past 12 Hours) Vital Signs Temp Pulse Resp BP BP Pulse Ox 01/30/20 17:34 122 H 22 106/68 01/30/20 12:30 89 20 113/61 94 01/30/20 12:16 79 20 105/44 L 95 01/30/20 12:01 79 20 94/57 L 95 01/30/20 11:10 36.5 C 75 18 121/59 L 98 01/30/20 07:39 36.4 C L 93 H 20 106/80 91 Laboratory Results Abnormal lab results 01/30/20 01/30/20 Range/Units 05:44 05:44 RBC 3.30 L (4.2-5.4) M/uL Hgb 8.6 L (12.0-16.0) g/dL Hct 28.7 L (37-47) % MCHC 30.0 L (32-36) g/dL RDW Std Deviation 48.7 H (36.4-46.3) fL RDW Coeff of Uma 15.3 H (11.5-14.5) % Chloride 112 H (98-107) mmol/L Creatinine 1.21 H (0.6-1.2) mg/dl Glucose 113 H (70-99) mg/dl Calcium 8.3 L (8.5-10.1) mg/dl Diagnostic Findings colonoscopy-Findings: A frond-like/villous, fungating, infiltrative and ulcerated completely obstructing large mass was found in the recto-sigmoid colon 10 cm from the anal verge. The mass was circumferential and friable. colonoscope was not able to pass through the lumen due to the obstructing mass. Biopsies were taken with a cold forceps for histology. Estimated blood loss: none. Non-bleeding internal hemorrhoids were found. The hemorrhoids were medium-sized. 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 Biopsied. - Non-bleeding internal hemorrhoids. CHEST CT WITH CONTRAST: CT ABDOMEN AND PELVIS WITH IV AND ORAL CONTRAST HISTORY: Colonic mass reportedly seen on recent colonoscopy. Staging exam. Colonic mass on colonscopy. Cancer staging TECHNIQUE: Multiaxial CT images of the chest, abdomen and pelvis were performed following the IV administration of 93 cc of Optiray 320. A dose lowering technique was utilized adhering to the principles of ALARA. COMPARISON: None. FINDINGS: CT CHEST: Unremarkable thyroid. Nonspecific mildly enlarged right hilar lymph node, 1.4 x 1.0 cm. Moderate cardiomegaly. No pericardial effusion. Coronary artery calcifications. No thoracic aortic aneurysm or dissection. 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 Dilation of the main pulmonary artery. No evidence of pulmonary thromboembolic disease. Trace pleural effusions. Moderate to severe emphysema. No pneumothorax or overt pulmonary edema. Bronchial wall thickening suggestive of bronchitis. Mild bibasilar subsegmental consolidative and groundglass opacities favor atelectasis. There are no suspicious pulmonary nodules or masses to suggest metastasis. Central airways are patent. Soft tissues are within normal limits. Degenerative changes of the shoulders and spine. CT ABDOMEN/PELVIS: No pneumatosis or pneumoperitoneum. The spleen, pancreas and adrenal glands are unremarkable. Hyperdense material is noted within the gallbladder suggestive of cholelithiasis. Vicarious excretion could appear similarly. Gallbladder is mildly contracted. There is mild pericholecystic fluid. Indeterminate 1.3 cm lesion with suggestion of peripheral enhancement involves the posterior right hepatic lobe. Mild marginal nodularity of the liver. Mild cortical thinning of the kidneys. There are a few scattered subcentimeter hypodensities suggestive of probable renal cysts. No obstructive uropathy. Partially decompressed urinary bladder. Unremarkable uterus and adnexa. Extensive mixed plaque of the abdominal aorta. No bowel obstruction. Probable lipoma involves the third portion the duodenum, 7 mm. Colonic diverticulosis. There is a 4.1 cm segment of rectum which demonstrates irregular wall thickening (for example see image 312 series 7 and states sagittal image). There is perirectal stranding with trace free fluid within this distribution. There are multiple prominent lymph nodes of the rectal mesocolon measuring up to 7 mm with prominence of the perirectal vasculature. 6 mm prominent presacral lymph node, image 266 series 7. Mild generalized body wall edema. Degenerative changes of the spine, pelvis and hips. No suspicious lytic or blastic osseous lesions identified. No acute fracture. Lumbar levoscoliosis. IMPRESSION: 1. 4.1 cm segment of the rectum demonstrates irregular thickened wall, likely correlating with the reported known colonic neoplasm. There is stranding and edema within the perirectal tissues with multiple prominent perirectal lymph nodes suggestive of lymphatic metastasis. 2. No bowel obstruction or pneumoperitoneum. 3. Solitary 1.3 cm lesion within the peripheral right hepatic lobe demonstrates apparent peripheral enhancement and is pathologically indeterminate. This is suspicious for possible solitary hepatic metastasis. 4. Gallbladder is mildly contracted with possible cholelithiasis and pericholecystic edema. This could be correlated with a follow-up ultrasound. 5. 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 6. Single mildly enlarged right hilar lymph node, nonspecific. 7. Emphysema. 8. Additional findings as above.
[2020-01-31] MEDS: METOPROLOL TARTRATE 25 MG TAB PO SCH (00:12)
--- NOTE | 2020-01-31 15:33 | Discharge Summary ---
Date of Service January 31, 2020 Admission HPI Per Admitting Provider 79-year-old female with PMH paroxysmal atrial fibrillation anticoagulant Eliquis, HTN, HLD, and other problems listed below who presents the ED for evaluation of weakness and shortness of breath. Patient reports she has been feeling weak and fatigued for the past few days. Yesterday, she reports she felt short of breath with exertion. She was able to monitor her blood pressure and heart rate at home and found that her heart rate was up and her blood pressure was low. She was seen in outpatient clinic and had an EKG that showed atrial fibrillation with RVR, she was therefore sent to the ED for further evaluation. While in the ED, patient had a bowel movement with some bright red blood. Patient reports this happens occasionally at home. Denies any dark tarry stools. No abdominal pain, nausea, vomiting, diarrhea. She denies chest pain and palpitations. She reports some mild lightheadedness with standing however denies any syncopal event. She denies any other recent illnesses, fevers, chills. No urinary symptoms. In the ED, patient was found to be in atrial fibrillation with RVR with rates 110s-120s, hypotension with systolic BP as low as 77/63. WBC 13 K, Hgb 10.4. UA suggest UTI. Patient received full dose aspirin, IV ceftriaxone, and IVF. Admission Exam Per Admitting Provider Constitutional: WD/WN, vitals as above Eyes: PERRL, conjunctivae normal, anicteric sclerae ENMT: external ear and nose normal, oropharynx normal Respiratory: normal respiratory effort, lungs clear to auscultation Cardiovascular: Rate/Rhythm: regular rate and regular rhythm Vessels: normal peripheral pulses Extremities: + edema Gastrointestinal (Abdomen): normal bowel sounds, soft, nontender, no hepatosplenomegaly Musculoskeletal: no cyanosis or clubbing, extremities motor strength 5/5 Skin: no rashes, warm and dry Neurologic: PERRL, EOMI, accommodation nl, no face palsy, no dysarthria Psychiatric: A+Ox3, euthymic affect Principal Diagnosis Lower GI bleed Symptomatic anemia Colonic mass likely malignant Afib with RVR Pansensitive E.coli UTI Discharge Exam Constitutional + well hydrated; no acute distress Eyes PERRL, conjunctivae normal, anicteric sclerae ENMT external ear and nose normal, oropharynx normal Respiratory normal respiratory effort, lungs clear to auscultation Gastrointestinal (Abdomen) normal bowel sounds, soft, nontender, no hepatosplenomegaly Musculoskeletal no cyanosis or clubbing, extremities motor strength 5/5 Neurologic PERRL, EOMI, accommodation nl, no face palsy, no dysarthria Psychiatric A+Ox3, euthymic affect Discharge Data Allergies Allergy/AdvReac Type Severity Reaction Status Date / Time No Known Allergies Allergy Unverified 01/28/20 11:57 Consultations 01/26/20 13:59 ED Decision to Admit Stat 01/26/20 15:34 Consult Case Management - Discharge Planning Routine Consult Gastroenterology Routine 01/27/20 09:42 Consult Cardiology Routine 01/30/20 13:44 Consult General Surgery Routine Procedures Performed Operation Date: 01/28/20 16:30 Actual Procedures p Esophagogastroduodenoscopy - Rich Hatch MD The examined esophagus was normal. No gross lesions, ulcers, erosions, nor active bleeding were noted in the stomach. A medium-sized hiatal hernia was present. The duodenal bulb and second portion of the duodenum were normal. Impression: - Normal esophagus. - No gross lesions in the stomach. - Medium-sized hiatal hernia. - Normal duodenal bulb and second portion of the duodenum. - No specimens collected. Operation Date: 01/30/20 15:30 Actual Procedures p Colonoscopy Biopsy Cytology - Rich Hatch MD A frond-like/villous, fungating, infiltrative and ulcerated completely obstructing large mass was found in the recto-sigmoid colon 10 cm from the anal verge. The mass was circumferential and friable. colonoscope was not able to pass through the lumen due to the obstructing mass. Biopsies were taken with a cold forceps for histology. Estimated blood loss: none. Non-bleeding internal hemorrhoids were found. The hemorrhoids were medium-sized. 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 Biopsied. - Non-bleeding internal hemorrhoids Ordered Studies 01/30/20 13:37 CT abd pelvis oral and IV con Urgent CT chest w con Urgent CT CHEST: Unremarkable thyroid. Nonspecific mildly enlarged right hilar lymph node, 1.4 x 1.0 cm. Moderate cardiomegaly. No pericardial effusion. Coronary artery calcifications. No thoracic aortic aneurysm or dissection. 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 Dilation of the main pulmonary artery. No evidence of pulmonary thromboembolic disease. Trace pleural effusions. Moderate to severe emphysema. No pneumothorax or overt pulmonary edema. Bronchial wall thickening suggestive of bronchitis. Mild bibasilar subsegmental consolidative and groundglass opacities favor atelectasis. There are no suspicious pulmonary nodules or masses to suggest metastasis. Central airways are patent. Soft tissues are within normal limits. Degenerative changes of the shoulders and spine. CT ABDOMEN/PELVIS: No pneumatosis or pneumoperitoneum. The spleen, pancreas and adrenal glands are unremarkable. Hyperdense material is noted within the gallbladder suggestive of cholelithiasis. Vicarious excretion could appear similarly. Gallbladder is mildly contracted. There is mild pericholecystic fluid. Indeterminate 1.3 cm lesion with suggestion of peripheral enhancement involves the posterior right hepatic lobe. Mild marginal nodularity of the liver. Mild cortical thinning of the kidneys. There are a few scattered subcentimeter hypodensities suggestive of probable renal cysts. No obstructive uropathy. Partially decompressed urinary bladder. Unremarkable uterus and adnexa. Extensive mixed plaque of the abdominal aorta. No bowel obstruction. Probable lipoma involves the third portion the duodenum, 7 mm. Colonic diverticulosis. There is a 4.1 cm segment of rectum which demonstrates irregular wall thickening (for example see image 312 series 7 and states sagittal image). There is perirectal stranding with trace free fluid within this distribution. There are multiple prominent lymph nodes of the rectal mesocolon measuring up to 7 mm with prominence of the perirectal vasculature. 6 mm prominent presacral lymph node, image 266 series 7. Mild generalized body wall edema. Degenerative changes of the spine, pelvis and hips. No suspicious lytic or blastic osseous lesions identified. No acute fracture. Lumbar levoscoliosis. IMPRESSION: 1. 4.1 cm segment of the rectum demonstrates irregular thickened wall, likely correlating with the reported known colonic neoplasm. There is stranding and edema within the perirectal tissues with multiple prominent perirectal lymph nodes suggestive of lymphatic metastasis. 2. No bowel obstruction or pneumoperitoneum. 3. Solitary 1.3 cm lesion within the peripheral right hepatic lobe demonstrates apparent peripheral enhancement and is pathologically indeterminate. This is suspicious for possible solitary hepatic metastasis. 4. Gallbladder is mildly contracted with possible cholelithiasis and pericholecystic edema. This could be correlated with a follow-up ultrasound. 5. 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 6. Single mildly enlarged right hilar lymph node, nonspecific. 7. Emphysema. 8. Additional findings as above. Hospital Course (1) Atrial fibrillation with RVR: Was seen at the urgent care with complain of fatigue, weakness and SOB, then was found to be in AFIB with RVR and was sent to the ER HR on admission was above 120's Possible related to infection vs GI bleed ECG demonstrates atrial fibrillation with rapid ventricular response. Evaluated by cardiology Currently on metoprolol 25mg TID ECHO showed no wall motion abnormality. EF 55 to 60%. No significant changed compared to last echo on 04/2018 Held Eliquis due to GI bleed pending workup Currently rate controlled (2) Lower GI bleed: (3) Anemia: Had an episode of bloody bowel movement in the ER. Hgb 10.4 on admission, Hgb was 15.3 04/2018 Hgb has been stable in 8s in the past 48h Recommended to get EGD but patient initially refused Patient later agreed after son spoke to her EGD done on 01/28/20 showed normal esophagus/duodenum, no gastric lesion, medium sized hiatal hernia Colonoscopy showed an obstructive fungating infiltrative mass 10cm from anal verge Possibly malignant. Patient has never had a colonoscopy before Get CT chest/abd/pelvis w/constrast for further eval and staging which showed colonic mass as well as liver mass Was evaluated by general surgeon who recommended transfer to tertiary center with Colorectal surgery Called transfer center on 01/30/20. Spoke with Fatmata Rasmussen (Colorectal surgery) who accepted transfer for further evaluation Continue to hold Eliquis for now and daughter were at bedside yesterday. Updated them on plan Will eventually need oncology evaluation Pathology report from colonoscopy needs follow up as well Patient transferred overnight to [facility] (4) Possible urinary tract infection: UA positive for Nitrite, Leukocytes and bacteria Urine cx positive for gram negative bacilli- Pansensitive e-coli WBC 13K on admission, trending down Already got 4 day doses of iv ceftriaxone (5) Hypertension: BP on admission was in the 80's/60's Received IV fluid Lisinopril and HCTZ on hold BP currently stable Continue metoprolol 25mg TID Continue monitor BP (6) DVT prophylaxis: SCDs due to GI bleeding Code Status Full Code Total Time Total Time Spent Total Time Spent (In Minutes): 40 Total Time Includes: Examination of the Patient, Discharge Planning, Medication Reconciliation and Communication With Other Providers Discharge Plan Discharge Items Patient Disposition: Transfer Acute Care Hospital Reason For Visit: GI BLEEDING Discharge Diagnosis: Gastrointestinal bleeding Anemia Atrial fibrillation with rapid ventricular rate Urinary tract infection Health Concerns: Rectal Mass with possible mets to liver. Transferring to [facility] for colorectal surgery and liver surgeon. Activity: As commented below Activity Comment: trnsferring to [place] Non-emergency contact: Primary Care Provider Call non-emergency contact if: you have any medication questions and your symptoms worsen Follow-up/Referrals: Shruthi Crowell DO [Primary Care Provider] - 02/03/20 11:20 am (02/03/2020 11:20 AM Provider Ene Krishnan MD Department Internal Medicine [facility] ) Diet: Nothing by Mouth Addtl Attending Provider Instructions: Ms Michelle. You came to the hospital complaining of weakness and shortness of breath. You also had a bloody bowel movement with drop in your hemoglobin level You were treated for gastrointestinal bleeding and had scopes (EGD and colonoscopy). You were also treated for urinary tract infection. It is very important that you take your medications as prescribed and to follow up with your [employer] and primary doctor It was a pleasure taking care of you. Pending Studies at Discharge: Yes Studies:: path report Stand-Alone Forms: My [facility], Smoking Cessation Skilled Items Lines: US Guided Peripheral IV Urinary Catheter: No Medications and DC Order Prescriptions: No Action atorvastatin 20 mg tablet 20 mg PO QAM RF: 0 lisinopril-hydrochlorothiazide 20-12.5 mg tablet 1 tab PO QAM RF: 0 metoprolol tartrate 25 mg tablet 25 mg PO BID Qty: 30 RF: 0 Eliquis 5 mg tablet 5 mg PO BID RF: 0 Discharge Orders: Discharge Order (Routine); Ordered 01/31/20 Ordered By: Rex Douglass Admission Data Admit Date/Time: 01/26/20 14:33 Attending Provider: Kamilah Lares I. Admit Provider: Ellie Manrique Primary Care Provider: Shruthi Crowell Other Providers: Ellie Manrique ; Chevy Fung ; Hayden Boyle ; Roro Patel ; Vikki Yang Other Interventions: Discharge Summary Assessment (RN) Last Done: 01/31/20 03:36 DC Date/Time DO NOT enter until pt leaves facility: 01/31/20 03:30
== END 2020-01-31 03:30 | disposition short-term general hospital (02) | DRG 378 ==
LOC: ED 12:07 → 2S 14:33 → SUATTDRO 14:33 → 2S 15:04 → 2E 01-27 15:17

== ENCOUNTER 2020-04-15 12:37 | Inpatient (IN) ==
[2020-04-15] MEDS ORDERED: SODIUM CHLORIDE 0.9% 500 ML IV SCH (13:00)
--- NOTE | 2020-04-15 13:03 | Emergency Department Note ---
Impression & Plan Pulmonary emboli, Leukocytosis, Metastatic cancer, Tachycardia ED Provider Note NAME: JETHRO MCGEE AGE: 79 SEX: F : 1940 ARRIVES VIA: Walk-In INFORMANT: [Patient][family] ED PROVIDER(S): [José Luis Armstrong MD] CHIEF COMPLAINT: PE HISTORY OF PRESENT ILLNESS: The patient is an 79-year-old female who has colon cancer with metastasis. She has a history recently of GI bleeding while on Eliquis. She is now just taking aspirin. The patient is undergoing chemotherapy for her cancer. She last received chemotherapy about 2-1/2 weeks ago. The patient had a CT of her chest done today in follow-up. A pulmonary embolus was seen. She was sent to the ED. The patient has not had fever, cough or congestion. No chest pain or shortness of breath. She feels weak but she thinks this is from the cancer diagnosis. She has never had a clot in her leg or lung. The patient does carry history of A. fib. REVIEW OF SYSTEMS: See HPI for pertinent positives and negatives. A total of ten systems were reviewed and were otherwise negative. PMHx/PSHx: See Below SOCIAL HISTORY: See Below. PHYSICAL EXAM: GENERAL: Patient is in no acute distress. HEENT: No acute trauma, normocephalic atraumatic, mucous membranes moist, no nasal congestion, no scleral icterus. NECK: No stridor, no adenopathy, no meningismus, trachea is midline. LUNGS: Clear to auscultation bilaterally, no wheeze, no rhonchi, breath sounds equal. HEART: Tachycardic and irregular, no murmurs. ABDOMEN: Soft, nontender, bowel sounds positive, no hernias, no peritonitis. EXTREMITIES: No cyanosis, bilateral pedal edema worse on the right, full range of motion of all the joints without pain or difficulty, no signs for acute trauma. NEUROLOGIC: Oriented x 3, no acute motor or sensory deficits, no focal weakness. SKIN: No rash, no jaundice, no diaphoresis. DIFFERENTIAL DIAGNOSIS: Cardiac ischemia, aortic dissection, pulmonary embolism, pneumothorax, pneu monia, pericarditis, myocarditis, esophageal rupture, GERD, cholecystitis, pancreatitis, musculoskeletal, as well as other pathologies. EMERGENCY DEPARTMENT COURSE/PROCEDURES: ECG: Indication was tachycardia. The ECG shows atrial fibrillation with a rapid ventricular response. The rate is 138. There is no ST elevation, no PVCs. There is some diffuse nonspecific ST change. The QTc is 448. Continuous Cardiac Monitoring: An order was placed for continuous cardiac monitoring. The monitor shows a rate of 108 with atrial fibrillation. MEDICAL DECISION MAKING: There is a marked leukocytosis at 30,000, this of course could be consistent with infection. The patient was anemic with a hemoglobin of 9.9, the anemia is baseline though looking back at previous testing. There was a normal platelet count. No concerning coagulopathy. No significant electrolyte abnormality or kidney failure. Alk phos slightly elevated, the bilirubin was normal. Lipase did not show any evidence for pancreatitis. Chest film showed a potential pneumonia or infiltrate to the right lower lung. No pneumothorax. I was able to review the chest abdomen and pelvis CT from earlier today. The patient did have bilateral pulmonary emboli with a potential pulmonary infarct. Bilateral lower extremity ultrasound did show a clot in the left leg, the right leg did not have any clotting. The patient presents tachycardic. She is not short of breath, she is not hypoxic. The patient's blood pressure is low but she has been running low as of late. She was given a 500 cc saline bolus. At this point, I do think hospitalization is warranted. The patient may need a vena cava filter. Anticoagulation is going to be difficult as she had a recent GI bleed while on Eliquis. I spoke to the patient about her findings, I did consult case management. The on-call hospitalist has been consulted. Past Med/Surg History Medical History Chronic anticoagulation Colon cancer metastasized to liver HLD (hyperlipidemia) Hypertension Paroxysmal atrial fibrillation Surgical History History of dilation and curettage Family History Father Heart disease Mother Heart disease Social History Smoking Status: Former smoker Tobacco Type: Cigarettes Hx Alcohol Use: Yes Hx Substance Use: No Preferred Language: Polish Communication Ability: Effective Director Veterinary Required: No Beliefs That Will Affect Care: None marital status: Current Living Situation: Spouse Other Information That Helps Us Care for You: No Feels Safe at Home: Yes Safety Concerns: Feels Safe At This Time Assistive Devices: Cane, Glasses, Walker and Wheelchair Allergies Allergies Allergy/AdvReac Type Severity Reaction Status Date / Time No Known Allergies Allergy Unverified 04/15/20 13:54 Home Meds Home Medications Medication Instructions Recorded Confirmed atorvastatin 20 mg PO QAM 05/20/18 04/15/20 lisinopril-hydrochlorothiazide 1 tab PO QAM 05/20/18 04/15/20 Magic Swizzle 15 ml PO QID PRN 04/15/20 04/15/20 aspirin [Aspir-81] 81 mg PO DAILY 04/15/20 04/15/20 docusate sodium 100 mg PO BID PRN 04/15/20 04/15/20 ondansetron HCl 8 mg PO Q8H PRN 04/15/20 04/15/20 polyethylene glycol 3350 [Miralax] 17 g PO BID 04/15/20 04/15/20 prochlorperazine maleate 10 mg PO Q6H PRN 04/15/20 04/15/20 senna 8.6 mg PO DAILY 04/15/20 04/15/20 Previous Rx's Medication Instructions Recorded metoprolol tartrate 25 mg PO BID #30 tab 05/20/18 Results & Data (ED) Vital Signs Vital Signs - 24 hr 04/15/20 12:39 04/15/20 12:59 04/15/20 13:10 Temperature 36.4 C L Temperature Source Oral Pulse Rate 108 H 120 H Pulse Rate from SpO2 Sensor Respiratory Rate 18 32 H Respiratory Effort / Characteristics SOB on Exertion Respiratory Depth Normal Blood Pressure 83/40 L 109/60 Blood Pressure Mean 54 72 Blood Pressure Position Sitting Pulse Oximetry 92 96 Oxygen Delivery Method Room Air Room Air Sepsis Recent Fever Within 48 Hours No Sepsis New/Unexplained Change in Mental Status No Sepsis Action Taken by Nursing No Action Required 04/15/20 13:30 04/15/20 14:00 Temperature Temperature Source Pulse Rate 119 H 85 Pulse Rate from SpO2 Sensor 107 H 82 Respiratory Rate 27 H 19 Respiratory Effort / Characteristics Respiratory Depth Blood Pressure 89/51 L 101/46 L Blood Pressure Mean 59 71 Blood Pressure Position Pulse Oximetry 100 99 Oxygen Delivery Method Sepsis Recent Fever Within 48 Hours Sepsis New/Unexplained Change in Mental Status Sepsis Action Taken by Custodial Medications Current Medication List: was personally reviewed by me Laboratory Data Attestation: I reviewed the patient's lab results. Result diagrams: 04/15/20 13:41 04/15/20 13:41 Lab Results 04/15/20 04/15/20 04/15/20 Range/Units 13:41 13:41 13:41 WBC 30.13 H* (4.8-10.8) K/uL RBC 3.64 L (4.2-5.4) M/uL Hgb 9.9 L (12.0-16.0) g/dL Hct 30.4 L (37-47) % MCV 83.5 (80-100) fL MCH 27.2 (25-34) pg MCHC 32.6 (32-36) g/dL RDW Std Deviation 72.9 H (36.4-46.3) fL RDW Coeff of Uma 27.1 H (11.5-14.5) % Plt Count 141 (130-400) K/uL MPV 10.3 (7.4-10.4) fL Immature Gran % (Auto) 1.4 % Neut % (Auto) 81.4 % Lymph % (Auto) 7.7 % Barbour % (Auto) 9.3 % Eos % (Auto) 0.1 % Baso % (Auto) 0.1 % Neut # (Auto) 24.53 H (1.4-6.5) K/uL Lymph # (Auto) 2.31 (1.2-3.4) K/uL Barbour # (Auto) 2.80 H (0.11-0.59) K/uL Eos # (Auto) 0.03 (0-0.5) K/uL Baso # (Auto) 0.03 (0-0.2) K/uL Immature Gran # (Auto) 0.43 H (0.00-0.02) K/uL Absolute Nucleated RBC 0.17 H (0-0) K/uL Nucleated RBC % (auto) 0.6 % Toxic Granulation 1+ Polychromasia 1+ Poikilocytosis Present Anisocytosis Present Echinocytes 1+ PT 12.7 H (9.0-12.0) Seconds INR 1.2 H (0.9-1.1) APTT 26.0 (21.0-31.0) Seconds PTT Ratio 0.9 Sodium 137 (136-145) mmol/L Potassium 3.7 (3.5-5.1) mmol/L Chloride 103 (98-107) mmol/L Carbon Dioxide 22 (21-32) mmol/L Anion Gap 12.0 H (3-11) BUN 35 H (7-18) mg/dl Creatinine 0.97 (0.6-1.2) mg/dl Est Cr Clr Drug Dosing Not Reportable Est GFR ( Amer) 63.5 Est GFR (Non-Af Amer) 54.8 BUN/Creatinine Ratio 36.0 H (10-20) Glucose 82 (70-99) mg/dl Calcium 8.5 (8.5-10.1) mg/dl Magnesium 2.0 (1.8-2.4) mg/dl Total Bilirubin 0.5 (0.2-1) mg/dl AST 17 (15-37) U/L ALT 16 (12-78) U/L Alkaline Phosphatase 135 H (45-117) U/L Troponin I 0.017 (0-0.045) ng/ml Total Protein 5.3 L (6.4-8.2) gm/dl Albumin 1.9 L (3.4-5.0) gm/dl Globulin 3.4 (2.5-4.0) gm/dl Albumin/Globulin Ratio 0.6 L (0.9-2) Lipase 122 (73-393) U/L Administered Medications Heparin Sodium/Dextrose (Heparin Sodium/Dextrose) 25,000 units in 500 mls @ 20 mls/hr IV .Q24H [facility]; Protocol Stop: 05/15/20 15:38 Last Admin: 04/15/20 17:13 Dose: 1,000 units/hr, 20 mls/hr Documented by: [id number] Cosigned by: [id number] Discontinued Medications Sodium Chloride (Nss) 500 mls @ 999 mls/hr IV .Q31M [facility] Stop: 04/15/20 13:30 Last Infusion: 04/15/20 14:20 Dose: 0 mls/hr Documented by: [id number] Admin: 04/15/20 13:45 Dose: 999 mls/hr Documented by: [id number] Heparin Sodium (Porcine) 4,000 (units/ Syringe) 4 mls @ 10 mls/min IV NOW ONE Stop: 04/15/20 17:01 Last Admin: 04/15/20 17:13 Dose: 10 mls/min Documented by: [id number] Cosigned by: [id number] Imaging Data Radiologist's Impression: CT chest abdomen pelvis done at the outpatient [facility] facility showed acute bilateral pulmonary emboli involving the right pulmonary artery the right basilic trunk and multiple segmental and subsegmental branches throughout both lower lobes. There was a new airspace consolidation/opacification in the right lower lobe. This was concerning for infarction. XR chest 1V portable CLINICAL HISTORY: Pulmonary embolism COMPARISON STUDY: 01/26/2020 FINDINGS: The heart is enlarged. There is a right-sided A-Port catheter. Since the prior study, the patient developed a right basilar airspace opacities.[This could represent a pneumonia although given the clinical history of a pulmonary embolism, this could represent an infarct. There is minor left basilar atelectatic change. There is a trace right pleural effusion. There is a line shadow probably the right chest wall is felt to represent a skinfold. IMPRESSION: 1. Right pulmonary basilar airspace opacities, pneumonia versus pulmonary i nfarct. Trace right pleural effusion US venous doppler LE BI CLINICAL HISTORY: Pulmonary embolism COMPARISON STUDY: No previous studies for comparison. FINDINGS: Grayscale, color-flow, Doppler spectral waveform analysis was performed. On the right, no intraluminal thrombus was visualized. The veins are fully compressible from the groin to the popliteal vein. There is normal color flow within the proximal trifurcation veins of the calf. On the left, there is thrombus within the profunda vein extending to the common femoral junction. The superficial femoral vein, popliteal vein, proximal trifurcation veins of the calf were patent. IMPRESSION: 1. No evidence of right lower extremity DVT 2. Left leg profunda vein thrombus extending to the common femoral junction Blood Pressure Blood Pressure Findings: Low blood pressure Blood Pressure Disposition: further management by hospitalist Discharge Plan Visit Data Chief Complaint: Abnormal Labs/Diagnostic Testing Stated Complaint: PE,ABNORMAL CT, REF BY DOCTOR ED Provider: José Luis Armstrong Discharge Problem: Pulmonary emboli, Leukocytosis, Metastatic cancer, Tachycardia Patient Disposition: Admitted As Inpatient Condition: Fair Discharge Instructions Interventions: ED Discharge Assessment Last Done: 04/15/20 15:05 Discharge Problem: Pulmonary emboli Qualifiers: Pulmonary embolism type: other Chronicity: acute Acute cor pulmonale presence: unspecified Qualified Code(s): I26.99 - Other pulmonary embolism without acute cor pulmonale Leukocytosis Qualifiers: Leukocytosis type: unspecified Qualified Code(s): D72.829 - Elevated white blood cell count, unspecified Metastatic cancer Qualifiers: Area of secondary neoplastic involvement: unspecified site Qualified Code(s): C79.9 - Secondary malignant neoplasm of unspecified site
--- NOTE | 2020-04-15 13:46 | XRay Report ---
XR chest 1V portable CLINICAL HISTORY: Pulmonary embolism COMPARISON STUDY: 01/26/2020 FINDINGS: The heart is enlarged. There is a right-sided A-Port catheter. Since the prior study, the p atient developed a right basilar airspace opacities.[This could represent a pneumonia although given the clinical history of a pulmonary embolism, this could represent an infarct. There is minor left ba silar atelectatic change. There is a trace right pleural effusion. There is a line shadow probably th e right chest wall is felt to represent a skinfold. IMPRESSION: 1. Right pulmonary basilar airspace opacities, pneumonia versus pulmonary infarct. Trace right pleura l effusion ACT 112: Negative or not required by law. Electronically signed by: Sarbjit Echavarria M.D. 04/15/2020 1:44 PM
[2020-04-15 14:02] LABS: Hematocrit (blood only) 30.4 % (37-47); Hemoglobin 9.9 g/dL (12.0-16.0); Mean Corpuscular Hemoglobin 27.2 pg (25-34); Mean Corpuscular Hgb Conc 32.6 g/dL (32-36); Mean Corpuscular Volume 83.5 fL (80-100); Mean Platelet Volume 10.3 fL (7.4-10.4); Nucleated RBC # (auto) 0.17 K/uL (0-0); Nucleated RBC % (auto) 0.6 %; Platelet Count 141 K/uL (130-400); RDW Coefficient of Variation 27.1 % (11.5-14.5); RDW Standard Deviation 72.9 fL (36.4-46.3); Red Blood Count 3.64 M/uL (4.2-5.4); White Blood Count 30.13 K/uL (4.8-10.8)
[2020-04-15 14:13] LABS: Alanine Aminotransferase 16 U/L (12-78); Albumin Level 1.9 gm/dl (3.4-5.0); Aspartate Aminotransferase 17 U/L (15-37); Blood Urea Nitrogen 35 mg/dl (7-18); Calcium 8.5 mg/dl (8.5-10.1); Carbon Dioxide 22 mmol/L (21-32); Chloride 103 mmol/L (98-107); Est GFR (African American) 63.5; Est GFR (Non-African American) 54.8; Glucose 82 mg/dl (70-99); Lipase 122 U/L (73-393); Potassium 3.7 mmol/L (3.5-5.1); Sodium 137 mmol/L (136-145)
[2020-04-15 14:14] LABS: Anisocytosis Present; Basophils # (auto) 0.03 K/uL (0-0.2); Basophils % (auto) 0.1 %; Echinocytes 1+; Eosinophils # (auto) 0.03 K/uL (0-0.5); Eosinophils % (auto) 0.1 %; INR 1.2 (0.9-1.1); Immature Granulocytes # (auto) 0.43 K/uL (0.00-0.02); Immature Granulocytes % (auto) 1.4 %; Lymphocytes # (auto) 2.31 K/uL (1.2-3.4); Lymphocytes % (auto) 7.7 %; Monocytes % (auto) 9.3 %; Neutrophils # (auto) 24.53 K/uL (1.4-6.5); Neutrophils % (auto) 81.4 %; Partial Thromboplastin Ratio 0.9; Poikilocytosis Present; Polychromasia 1+; Prothrombin Time 12.7 Seconds (9.0-12.0); Toxic Granulation 1+
[2020-04-15 14:18] LABS: Albumin Globulin Ratio 0.6 (0.9-2); Alkaline Phosphatase 135 U/L (45-117); Bilirubin,Total 0.5 mg/dl (0.2-1); Globulin 3.4 gm/dl (2.5-4.0); Total Protein 5.3 gm/dl (6.4-8.2); Troponin I 0.017 ng/ml (0-0.045)
--- NOTE | 2020-04-15 14:48 | Ultrasound Report ---
US venous doppler LE BI CLINICAL HISTORY: Pulmonary embolism COMPARISON STUDY: No previous studies for comparison. FINDINGS: Grayscale, color-flow, Doppler spectral waveform analysis was performed. On the right, no intraluminal thrombus was visualized. The veins are fully compressible from the groi n to the popliteal vein. There is normal color flow within the proximal trifurcation veins of the abeba f. On the left, there is thrombus within the profunda vein extending to the common femoral junction. The superficial femoral vein, popliteal vein, proximal trifurcation veins of the calf were patent. IMPRESSION: 1. No evidence of right lower extremity DVT 2. Left leg profunda vein thrombus extending to the common femoral junction ACT 112: Negative or not required by law. Electronically signed by: Sarbjit Echavarria M.D. 04/15/2020 2:47 PM
--- NOTE | 2020-04-15 15:31 | History & Physical Report ---
Date of Service April 15, 2020 Assessment & Plan (1) Bilateral pulmonary embolism: (2) Left leg DVT: -Admit to telemetry -Patient presenting by referral of oncologist for evaluation after outpatient CT chest demonstrated bilateral pulmonary embolism with possible pulmonary infarction -BLE venous Doppler performed in ED shows left leg profunda vein thrombus extending to the common femoral junction -Recently diagnosed with metastatic colon cancer. Previously was anticoagulated for A. fib however was discontinued 02/27/2020 due to GI bleeding. -Currently saturating well on room air -Case discussed with Dr. Perez -start standard IV heparin with bolus for 24 hours, then start Lovenox 60 mg twice daily for 2 weeks then transition to Lovenox 1.5 mg/kg daily. Noted that patient tolerated Lovenox well 01/2020, and GI bleeding resumed when she was restarted on Eliquis. -Vascular surgery consult for possible need for IVC filter. Case discussed with Jennifer Scherer PA-C (3) Subclavian artery disease: -CT chest noted stable severe arterial atherosclerotic disease, with noncalcified plaque/mural thrombus occluding the proximal left subclavian artery. The left vertebral artery is patent and further evaluation with carotid duplex is recommended to evaluate for subclavian steal. -Carotid duplex ordered -monitor BL BPs -Appreciate vascular surgery input (4) Leukocytosis: -WBC 30 K -Dr. Torres notified, likely due to recent Ziextenzo injection on 04/03 -No signs of infection (5) Colon cancer metastasized to liver: -Follows with Dr. Torres -Currently receiving chemotherapy with Avastin and FOLFOX, last dose on 03/31 (6) Paroxysmal atrial fibrillation: -Rates intermittently elevated, likely due to acute PE -Rate controlled on metoprolol, will continue -Anticoagulation as above (7) Hypertension: -BPs intermittently/borderline low -Hold lisinopril HCTZ for now -Continue metoprolol (8) DVT prophylaxis: -On IV heparin History of Present Illness Chief Complaint: Bilateral Pulmonary Embolism Primary Care Provider: Shruthi Crowell DO 79 year old female with PMH colon cancer with mets to liver on chemo, paroxysmal atrial fibrillation not anticoagulated, HTN, and other problems listed below who was referred to the ED by outpatient oncologist for evaluation of bilateral pulmonary embolism. In summary, patient was admitted to [facility] 07/2019 for GI bleed in the setting of being on Eliquis. Patient underwent colonoscopy that showed a large mass in the rectosigmoid colon. Patient was transferred to [facility] for evaluation by colorectal surgery. While at [facility], patient did not have any invasive procedures however did undergo staging MRIs and was evaluated by colorectal surgery. Patient was discharged on therapeutic dose Lovenox in anticipation of possible surgery. Patient was evaluated by cardiology on 02/13 and was placed back on Eliquis 2.5 mg twice daily. On 02/19, patient developed a small amount of rectal bleeding and was instructed to hold her Eliquis for 3 days. It was subsequently resumed however had to be stopped again on 02/26 due to minor rectal bleeding. That time, patient was instructed to take aspirin 81 mg daily. Has had a port placed and started chemotherapy with Avastin and FOLFOX, last dose being on 03/31. She also has been receiving Ziextenzo injections, last dose on 04/03. Patient underwent routine CT chest and ABD/pelvis today. It showed acute bilateral pulmonary embolism involving the right pulmonary artery, right basilar trunk, and multiple segmental and subsegmental branches throughout the both lower lobes. There is also a new airspace opacification in the right lower lobe concerning for infarction. Patient was sent to the ED for further evaluation. Patient reports feeling generally weak with poor appetite. Reports she has lost a few pounds. She reports shortness of breath with minimal exertion. No chest pain. She has worsening lower extremity edema over the past few days. Denies lightheadedness, dizziness, diaphoresis, syncopal events. Reports diarrhea which is been ongoing since her diagnosis. No abdominal pain, nausea, vomiting. Denies any other recent illnesses, fevers, chills. No urinary symptoms. In the ED, patient has been intermittently tachycardic in the 120s. Was initially h ypotensive at 83/40 however this improved after IVF. Patient reports heart rate has been running somewhat high and blood pressure has been running somewhat low at home. She is saturating well on room air. Labs show WBC 30 K, Hgb 9.9. BL LE venous Doppler shows Left leg profunda vein thrombus extending to the common femoral junction. Allergies Allergy/AdvReac Type Severity Reaction Status Date / Time No Known Allergies Allergy Unverified 04/15/20 13:54 Home Medications Home Medications Medication Instructions Recorded Confirmed Type atorvastatin 20 mg PO QAM 05/20/18 04/15/20 History lisinopril-hydrochlorothiazide 1 tab PO QAM 05/20/18 04/15/20 History metoprolol tartrate 25 mg PO BID #30 tab 05/20/18 04/15/20 Rx Magic Swizzle 15 ml PO QID PRN 04/15/20 04/15/20 History aspirin [Aspir-81] 81 mg PO DAILY 04/15/20 04/15/20 History docusate sodium 100 mg PO BID PRN 04/15/20 04/15/20 History ondansetron HCl 8 mg PO Q8H PRN 04/15/20 04/15/20 History polyethylene glycol 3350 [Miralax] 17 g PO BID 04/15/20 04/15/20 History prochlorperazine maleate 10 mg PO Q6H PRN 04/15/20 04/15/20 History senna 8.6 mg PO DAILY 04/15/20 04/15/20 History Past Med/Surg History Medical History Chronic anticoagulation Colon cancer metastasized to liver HLD (hyperlipidemia) Hypertension Paroxysmal atrial fibrillation Surgical History History of dilation and curettage Family History Father Heart disease Mother Heart disease Social History Smoking Status: Former smoker Tobacco Type: Cigarettes Hx Alcohol Use: Yes Hx Substance Use: No Preferred Language: Latvian Communication Ability: Effective Vehicle Window Tinter Required: No Beliefs That Will Affect Care: None marital status: Current Living Situation: Spouse Other Information That Helps Us Care for You: No Feels Safe at Home: Yes Safety Concerns: Feels Safe At This Time Assistive Devices: Cane, Glasses, Walker and Wheelchair Review of Systems Review of Systems: ROS per HPI, all other systems reviewed and negative Physical Exam Constitutional: WD/WN, vitals as above Eyes: PERRL, conjunctivae normal, anicteric sclerae ENMT: external ear and nose normal, oropharynx normal Respiratory: normal respiratory effort, lungs clear to auscultation Cardiovascular: Rate/Rhythm: + tachycardic and + irregularly irregular Vessels: normal peripheral pulses Extremities: + edema (+2 pitting edema BLE) Gastrointestinal (Abdomen): normal bowel sounds, soft, nontender, no hepatosplenomegaly Musculoskeletal: no cyanosis or clubbing, extremities motor strength 5/5 Skin: no rashes, warm and dry Neurologic: PERRL, EOMI, accommodation nl, no face palsy, no dysarthria Psychiatric: A+Ox3, euthymic affect Results & Data Results & Data ([facility]) Vital Signs (Past 12 Hours) Vital Signs Temp Pulse Pulse Resp BP BP Pulse Ox 04/15/20 14:41 111 H 20 101/49 L 94 04/15/20 14:40 110 H 27 H 101/49 L 04/15/20 14:00 85 19 101/46 L 99 04/15/20 13:30 119 H 27 H 89/51 L 100 04/15/20 13:10 120 H 32 H 109/60 04/15/20 12:59 96 04/15/20 12:39 36.4 C L 108 H 18 83/40 L 92 Laboratory Results Short CBC 04/15/20 Range/Units 13:41 WBC 30.13 H* (4.8-10.8) K/uL Hgb 9.9 L (12.0-16.0) g/dL Hct 30.4 L (37-47) % Plt Count 141 (130-400) K/uL BMP 04/15/20 13:41 Sodium 137 Potassium 3.7 Chloride 103 Carbon Dioxide 22 BUN 35 H Creatinine 0.97 Glucose 82 Calcium 8.5 Cardiac Enzymes 04/15/20 Range/Units 13:41 Troponin I 0.017 (0-0.045) ng/ml Liver Function 04/15/20 Range/Units 13:41 Total Bilirubin 0.5 (0.2-1) mg/dl AST 17 (15-37) U/L ALT 16 (12-78) U/L Alkaline Phosphatase 135 H (45-117) U/L Albumin 1.9 L (3.4-5.0) gm/dl Diagnostic Findings BLE Venous DopplerIMPRESSION: 1. No evidence of right lower extremity DVT 2. Left leg profunda vein thrombus extending to the common femoral junction. CT CHEST/ABD/PELVIS IMPRESSION (performed at [facility]) 1. Acute bilateral pulmonary emboli involving the right pulmonary artery, right basilar trunk, and multiple segmental and subsegmental branches throughout both lower lobes. 2. New airspace opacification in the right lower lobe, concerning for infarction given the extensive pulmonary emboli in this distribution. Underlying aspiration or infection is difficult to exclude. 3. Stable size of multiple 2-3 mm pulmonary nodules. Attention on follow-up is recommended. 4. Stable size of multiple small indeterminate perirectal lymph nodes. 5. Multiple stable indeterminate hypodense lesions in the liver, measuring up to 1.1 cm in the right hepatic lobe. Further evaluation with an MRI of the abdomen is recommended (MRI abdomen with and without contrast). 6. Mild undulating contour of the liver, raising the possibility of cirrhosis. There is no evidence of portal hypertension. 7. Stable severe arterial atherosclerotic disease, with noncalcified plaque/mural thrombus occluding the proximal left subclavian artery. The left vertebral artery is patent and further evaluation with carotid duplex is recommended to evaluate for subclavian steal. Code Status & VTE Plan VTE Prophylaxis Plan VTE Prophylaxis will be ordered: Yes Supervising Physician Co-Signing Physician Notes Patient was seen and examined by me, care coordinated with JANINE Thompson. Please see her note above for further details. Pt is an 79 year old female with recent diagnosis of colon cancer with metastases to liver, currently on chemotherapy (under care of dr. Torres), paroxysmal atrial fibrillation not anticoagulated (hx of GI bleed on Eliquis), HTN, and other problems who was referred to the ED by outpatient oncologist for evaluation of bilateral pulmonary embolism. Patient is currently lying in bed in no acute distress. Denies any fevers, chills, chest pain, shortness of breath. Denies any abdominal pain nausea or vomiting. She is currently alert and oriented and answering questions appropriately. Heart sounds are irregular and slightly tachycardic. Lung sounds clear to auscultation, no wheezing rhonchi noted. Abdomen is soft, nonte nder, nondistended. She moves all 4 extremities spontaneously and without difficulty. There is lower extremity edema noted. Skin is otherwise warm dry and well-perfused. Family at bedside, on the phone. CODE STATUS discussed, at this point patient is full code, will further discuss with her . Case discussed in detail with Dr. Perez regarding anticoagulation recommendations, history of GI bleed on Eliquis in the past. Will start IV heparin, plan to transition to Lovenox. Vascular surgery also consulted for poss. IVC filter. Significant leukocytosis noted, Dr. Torres notified, likely medication related, no signs of infection noted at this time. Juliana Shields MD (1) Hypertension Hypertension type: essential hypertension Qualified Code(s): I10 - Essential (primary) hypertension
[2020-04-15] MEDS ORDERED: ACETAMINOPHEN 325 MG TAB PO PRN (15:39)
[2020-04-15] MEDS ORDERED: DOCUSATE SODIUM 100 MG CAP PO PRN (15:39)
[2020-04-15] MEDS ORDERED: NYSTATIN 30 ML, DEXAMETHASONE CONC 3.75 MG, DiphenhydrAMINE Syrup 300 MG, ORA-SWEET SYR... PO PRN (16:46)
[2020-04-15] MEDS ORDERED: HEPARIN IV BOLUS 4,000 UNITS in SYRINGE 0 ML IV ONE (17:00)
[2020-04-15] MEDS: HEPARIN SODIUM/DEXTROSE 25,000 UNITS/500 ML BAG IV SCH (17:13)
--- NOTE | 2020-04-15 20:31 | Ultrasound Report ---
BILATERAL CAROTID DOPPLER STUDY HISTORY: evaluate for left subclavian steal syndrome COMPARISON: Chest CT 01/30/2020. TECHNIQUE: Real-time, grayscale, and color Doppler sonography of the carotid arteries was performed. Imaging reviewed in the transverse and longitudinal planes. All measurements were calculated based on NASCET criteria. FINDINGS: There is antegrade flow within the right vertebral artery. Reversed flow identified within the left v ertebral artery. Low velocity waveforms within the left subclavian artery measuring up to 33 cm/s. Th erefore, these findings are consistent with left-sided subclavian steal syndrome. The right subclavia n artery was not identified due to the patient's overlying port and dressing. The left brachial pressure was unable to be obtained likely due to the slow flow. The right brachial pressure was abnormally low 76/53 The peak systolic velocity within the right ICA is 46 cm/s. The right systolic ratio is 0.55. The peak systolic velocity within the left ICA is 45 cm/s. The left systolic ratio is 0.54. IMPRESSION: 1. 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 2. Abnormally low right brachial pressure measuring 76/53. The left brachial pressure was unable to b e obtained likely due to the slow flow. 3. No hemodynamically significant stenosis seen within the carotid arteries. ACT 112: Negative or not required by law. Electronically signed by: Otf Aleman M.D. 04/15/2020 8:30 PM
[2020-04-15] MEDS: POLYETHYLENE (MIRALAX) 17 GM PACK PO SCH (21:13)
[2020-04-15] MEDS: METOPROLOL TARTRATE 25 MG TAB PO SCH (21:16)
[2020-04-15] MEDS ORDERED: HEPARIN 100 UNIT/ML 5ML FLUSH FLUSH PRN (22:09)
[2020-04-16 00:04] LABS: Partial Thromboplastin Ratio > 5.0
[2020-04-16 00:05] LABS: Partial Thromboplastin Time > 139.0 Seconds (21.0-31.0)
[2020-04-16] MEDS ORDERED: SODIUM CHLORIDE 0.9% 500 ML IV ONE (00:23)
[2020-04-16 01:51] LABS: Hematocrit (blood only) 29.7 % (37-47); Hemoglobin 9.5 g/dL (12.0-16.0); Mean Corpuscular Hemoglobin 26.8 pg (25-34); Mean Corpuscular Volume 83.7 fL (80-100); Mean Platelet Volume 9.6 fL (7.4-10.4); Nucleated RBC # (auto) 0.15 K/uL (0-0); Nucleated RBC % (auto) 0.5 %; Platelet Count 151 K/uL (130-400); RDW Coefficient of Variation 26.9 % (11.5-14.5); RDW Standard Deviation 74.5 fL (36.4-46.3); Red Blood Count 3.55 M/uL (4.2-5.4); White Blood Count 30.01 K/uL (4.8-10.8)
[2020-04-16 02:05] LABS: Basophils # (auto) 0.04 K/uL (0-0.2); Basophils % (auto) 0.1 %; Dohle Bodies 1+; Echinocytes 1+; Eosinophils # (auto) 0.11 K/uL (0-0.5); Eosinophils % (auto) 0.4 %; Immature Granulocytes # (auto) 0.65 K/uL (0.00-0.02); Immature Granulocytes % (auto) 2.2 %; Lymphocytes # (auto) 3.09 K/uL (1.2-3.4); Lymphocytes % (auto) 10.3 %; Monocytes # (auto) 2.51 K/uL (0.11-0.59); Monocytes % (auto) 8.4 %; Neutrophils # (auto) 23.61 K/uL (1.4-6.5); Neutrophils % (auto) 78.6 %; Ovalocytes 1+; Polychromasia 1+; Toxic Granulation 1+; Toxic Vacuolation Occasional
[2020-04-16 02:08] LABS: BUN Creatinine Ratio 38.1 (10-20); Calcium 8.1 mg/dl (8.5-10.1); Creatinine Clr Calc Pharmacy 45.1 ml/min; Est GFR (African American) 78.9; Est GFR (Non-African American) 68.1; Partial Thromboplastin Ratio > 5.0; Potassium 3.1 mmol/L (3.5-5.1)
[2020-04-16 02:09] LABS: Partial Thromboplastin Time > 139.0 Seconds (21.0-31.0)
[2020-04-16] MEDS ORDERED: POTASSIUM CHLORIDE 20 MEQ TABCR PO STA (02:27)
[2020-04-16] MEDS ORDERED: POTASSIUM CHLORIDE 40 MEQ in SODIUM CHLORIDE 0.9% 1000ML 1,000 ML IV ONE (03:00)
[2020-04-16 03:40] LABS: Partial Thromboplastin Ratio 2.8
[2020-04-16 03:44] LABS: Partial Thromboplastin Time 78.9 Seconds (21.0-31.0)
[2020-04-16 04:25] LABS: Appearance Urine Cloudy (Clear); Bacteria Urine Automated Negative (Negative); Bilirubin Urine Negative (Negative); Blood Urine Negative (Negative); Color Urine Yellow; Epithelial Cell Urine Auto >30 /lpf (0-5); Glucose Urine UA Negative (Negative); Ketones Urine Trace (Negative); Leukocyte Esterase Urine Negative (Negative); Nitrite Urine Negative (Negative); Protein Urine Trace (Negative); Specific Gravity Urine 1.045 (1.000-1.030); Urobilinogen Urine Negative (Negative)
[2020-04-16] MEDS ORDERED: SODIUM CHLORIDE 0.9% 1000ML 1,000 ML IV ONE (07:40)
--- NOTE | 2020-04-16 08:05 | Consultation ---
Date of Consultation April 16, 2020 Assessment & Plan (1) Left leg DVT: Patient is currently on heparin infusion and will be switched to lovenox per notes. She was on lovenox in the past without any bleeding problems. There is no indication for placing a vena cava filter at this. If she should start actively bleeding, then she will need to stop her anticoagulation and then insert a filter. Please call us if needed. Thank you very much for letting us participate in the care of this patient. History of Present Illness Reason for Consultation: Left leg DVT and PE Attending Physician: Ellie Manrique, History of Present Illness This patient is a 79 year old female with PMH colon cancer with mets to liver on chemo, paroxysmal atrial fibrillation not anticoagulated, HTN, and a history of GI bleeding on Eliquis from a colon mass. She was found to have PE's on imagine as well as a left lower extremity DVT involving the left profunda and common femoral vein. She denies any shortness of breath at this time. Other than leg swelling she has no leg complaints. Allergies Allergy/AdvReac Type Severity Reaction Status Date / Time No Known Allergies Allergy Unverified 04/15/20 13:54 Home Medications Home Medications Medication Instructions Recorded Confirmed Type atorvastatin 20 mg PO QAM 05/20/18 04/15/20 History lisinopril-hydrochlorothiazide 1 tab PO QAM 05/20/18 04/15/20 History metoprolol tartrate 25 mg PO BID #30 tab 05/20/18 04/15/20 Rx Magic Swizzle 15 ml PO QID PRN 04/15/20 04/15/20 History aspirin [Aspir-81] 81 mg PO DAILY 04/15/20 04/15/20 History docusate sodium 100 mg PO BID PRN 04/15/20 04/15/20 History ondansetron HCl 8 mg PO Q8H PRN 04/15/20 04/15/20 History polyethylene glycol 3350 [Miralax] 17 g PO BID 04/15/20 04/15/20 History prochlorperazine maleate 10 mg PO Q6H PRN 04/15/20 04/15/20 History senna 8.6 mg PO DAILY 04/15/20 04/15/20 History Patient History Medical History Chronic anticoagulation Colon cancer metastasized to liver HLD (hyperlipidemia) Hypertension Paroxysmal atrial fibrillation Surgical History History of dilation and curettage Family History Father Heart disease Mother Heart disease Social History Smoking Status: Former smoker Tobacco Type: Cigarettes Hx Alcohol Use: Yes Hx Substance Use: No Preferred Language: Occitan Communication Ability: Effective 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 Beliefs That Will Affect Care: None marital status: Current Living Situation: Spouse Other Information That Helps Us Care for You: No Feels Safe at Home: Yes Safety Concerns: Feels Safe At This Time Assistive Devices: Cane, Glasses, Walker and Wheelchair Review of Systems Review of Systems: All systems reviewed & are unremarkable except as noted in HPI & below Physical Exam Respiratory: normal respiratory effort; no respiratory distress and no labored breathing Cardiovascular: Rate/Rhythm: + tachycardic and + irregularly irregular Extremities: + edema (both lower extremities) Skin: ecchymotic areas of lower extremity Results & Data ([facility]) Vital Signs (Past 12 Hours) Vital Signs Temp Pulse Resp BP Pulse Ox 04/16/20 07:22 36.4 C L 145 H 16 87/62 L 04/16/20 03:52 36.4 C L 123 H 20 82/60 L 97 04/16/20 02:43 88/48 L 04/16/20 00:11 36.5 C 95 H 18 83/49 L 95 04/15/20 21:16 97 H 17 89/57 L
[2020-04-16] MEDS: METOPROLOL TARTRATE 25 MG TAB PO SCH (08:15)
[2020-04-16] MEDS: SENNA 8.6 MG TAB PO SCH (08:16)
[2020-04-16] MEDS: POLYETHYLENE (MIRALAX) 17 GM PACK PO SCH ×2 (08:16→22:56)
[2020-04-16] MEDS ORDERED: ATORVASTATIN 20 MG TAB PO SCH (09:00)
[2020-04-16] MEDS ORDERED: SODIUM CHLORIDE 0.9% 1000ML 1,000 ML IV SCH (09:00)
[2020-04-16] MEDS ORDERED: POTASSIUM CHLORIDE 20 MEQ TABCR PO SCH (09:30)
[2020-04-16] MEDS: POTASSIUM CHLORIDE PWD 20 MEQ PACK PO SCH ×2 (10:43→17:00)
[2020-04-16] MEDS ORDERED: 0.2 MICRON FILTER SET 1 EA IV ONE (13:27)
[2020-04-16] MEDS ORDERED: AMIODARONE IV BOLUS & DRIP IV STA (13:27)
[2020-04-16] MEDS ORDERED: STAT IV Infusion **Titration per Protocol STA (13:27)
[2020-04-16] MEDS ORDERED: AMIODARONE / D5W 150 MG/100 ML BAG IV ONE (13:30)
[2020-04-16] MEDS ORDERED: AMIODARONE / D5W 360 MG/200 ML BAG IV ONE (13:30)
[2020-04-16] MEDS ORDERED: DIGOXIN 500 MCG/2 ML AMP IV ONE (14:08)
[2020-04-16] MEDS ORDERED: DIGOXIN 250 MCG in SYRINGE 9 ML IV ONE (14:15)
[2020-04-16] MEDS ORDERED: CONSULT PHARMACY STA (14:18)
[2020-04-16 14:34] LABS: Partial Thromboplastin Ratio > 5.0
[2020-04-16 14:36] LABS: Partial Thromboplastin Time > 139.0 Seconds (21.0-31.0)
[2020-04-16] MEDS ORDERED: VANCOMYCIN HCL 1,500 MG in SODIUM CHLORIDE 0.9% 500 ML IV STA (14:36)
[2020-04-16] MEDS ORDERED: CEFEPIME CONSULT ACTIVE PRN (14:43)
[2020-04-16] MEDS ORDERED: PIPERACILLIN/TAZOBACTAM 3.375 GM in DEXTROSE 5% 100 ML IV ONE (14:45)
[2020-04-16] MEDS ORDERED: VANCOMYCIN CONSULT ACTIVE PRN (14:45)
--- NOTE | 2020-04-16 14:50 | Cardiology Consultation ---
Date of Consultation April 16, 2020 Assessment & Plan (1) Atrial fibrillation with rapid ventricular response: Patient is an 79-year-old female with past history of paroxysmal atrial fibrillation currently in atrial fibrillation with rapid response in the setting of acute stressors of bilateral pulmonary emboli. Patient carries an underlying complex history of metastatic rectal carcinoma and past difficulties with intermittent GI bleeding. Currently not on anticoagulation Patient denies acute complaints and not hypoxic however blood pressure soft with elevated ventricular response rate. Echocardiogram does not suggest acute right ventricular pressure overload and overall LV systolic function grossly normal on initial evaluation Plan would support blood pressure with IV fluids Add digoxin single dose 0.25 mg IV for rate slowing As blood pressure improves would begin amiodarone either oral or IV for rate control and and hopeful conversion back to sinus rhythm. Past EKGs have demonstrated borderline bradycardia while on metoprolol Hold metoprolol as already doing Anticoagulation already initiated with heparin. Would discuss with hematology however optimal at long-term anticoagulation and patient with metastatic malignancy optimally is subcutaneous Lovenox at therap eutic dose (2) Pulmonary emboli: (3) Left leg DVT: (4) Paroxysmal atrial fibrillation: (5) Colon cancer metastasized to liver: History of Present Illness Reason for Consultation: Atrial fibrillation with rapid response Requesting Physician: Dr. Manrique Attending Physician: Ellie Manrique, DO History of Present Illness Patient is a complex 79-year-old female with past history is notable for 1. Paroxysmal atrial fibrillation 2. 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 Intermittent lower GI bleed 4. Acute bilateral pulmonary emboli noted on routine CT scan 5. Extensive left DVT Patient has above presented this admission with bilateral pulmonary emboli noted on follow-up CT scan of the chest for underlying malignant disease. Patient had noted no change in functional capacity but felt weak and fatigued possibly in association with chemotherapy. On initial presentation she was found to be in atrial fibrillation with rapid response. Cardiology consultative due to elevated heart rates and marginal blood pressures. Usual metoprolol held on admission due to hypotension Patient notes poor p.o. intake over the past several weeks. Confirmed by No overt fevers or chills. Most recent chemotherapy deferred however due to diffuse weakness. Does not wear oxygen at home. No current bleeding. Weight persistently trending downward. Currently on examination not hypoxic by O2 saturations though blood pressure soft with elevated heart rate. Echocardiogram at bedside demonstrates predominantly preserved LV and RV systolic function mild to moderate pulmonary hypertension by indirect measurement Patient has been receiving IV fluids since admission with some response. Currently in the process of being transferred to the intensive care unit but denying any acute complaints personally Allergies Allergy/AdvReac Type Severity Reaction Status Date / Time No Known Allergies Allergy Unverified 04/15/20 13:54 Home Medications Home Medications Medication Instructions Recorded Confirmed Type atorvastatin 20 mg PO QAM 05/20/18 04/15/20 History lisinopril-hydrochlorothiazide 1 tab PO QAM 05/20/18 04/15/20 History metoprolol tartrate 25 mg PO BID #30 tab 05/20/18 04/15/20 Rx Magic Swizzle 15 ml PO QID PRN 04/15/20 04/15/20 History aspirin [Aspir-81] 81 mg PO DAILY 04/15/20 04/15/20 History docusate sodium 100 mg PO BID PRN 04/15/20 04/15/20 History ondansetron HCl 8 mg PO Q8H PRN 04/15/20 04/15/20 History polyethylene glycol 3350 [Miralax] 17 g PO BID 04/15/20 04/15/20 History prochlorperazine maleate 10 mg PO Q6H PRN 04/15/20 04/15/20 History senna 8.6 mg PO DAILY 04/15/20 04/15/20 History Patient History Medical History Chronic anticoagulation Colon cancer metastasized to liver HLD (hyperlipidemia) Hypertension Paroxysmal atrial fibrillation Surgical History History of dilation and curettage Family History Father Heart disease Mother Heart disease Social History Smoking Status: Former smoker Tobacco Type: Cigarettes Hx Alcohol Use: Yes Hx Substance Use: No Preferred Language: Colombian Communication Ability: Effective Basket Maker Required: No Beliefs That Will Affect Care: None marital status: Current Living Situation: Spouse How many Children do You have: 6 Other Information That Helps Us Care for You: No Feels Safe at Home: Yes Safety Concerns: Feels Safe At This Time Assistive Devices: Oxygen - Continuous Review of Systems Review of Systems: All systems reviewed & are unremarkable except as noted in HPI & below Physical Exam Constitutional: + ill appearing; no acute distress Eyes: PERRL, conjunctivae normal, anicteric sclerae ENMT: external ear and nose normal, oropharynx normal Neck: trachea midline, no thyromegaly Respiratory: Auscultation: + diminished lung sounds Cardiovascular: Rate/Rhythm: + tachycardic and + irregularly irregular Heart Sounds: normal S1 and normal S2 Vessels: no JVD Extremities: + edema (1+ left greater than right) Results & Data ([facility]) Vital Signs (Past 12 Hours) Vital Signs Temp Pulse Resp BP Pulse Ox 04/16/20 14:30 115 H 98/66 L 04/16/20 14:17 120 H 113/62 04/16/20 14:00 116 H 79/66 L 04/16/20 13:48 126 H 71/50 L 04/16/20 12:50 113 H 82/53 L 04/16/20 12:40 122 H 80/59 L 04/16/20 09:25 123 H 100/53 L 04/16/20 08:00 129 H 82/73 L 04/16/20 07:22 36.4 C L 145 H 16 87/62 L 04/16/20 03:52 36.4 C L 123 H 20 82/60 L 97 04/16/20 02:43 88/48 L Laboratory Results Laboratory Results - last 24 hr 04/15/20 04/16/20 04/16/20 23:01 01:24 01:24 WBC RBC Hgb Hct MCV MCH MCHC RDW Std Deviation RDW Coeff of Uma Plt Count MPV Immature Gran % (Auto) Neut % (Auto) Lymph % (Auto) Barron % (Auto) Eos % (Auto) Baso % (Auto) Neut # (Auto) Lymph # (Auto) Barron # (Auto) Eos # (Auto) Baso # (Auto) Immature Gran # (Auto) Absolute Nucleated RBC Nucleated RBC % (auto) Toxic Granulation Toxic Vacuolation Dohle Bodies Polychromasia Ovalocytes Echinocytes APTT > 139.0 H* > 139.0 H* PTT Ratio > 5.0 > 5.0 Sodium Potassium Chloride Carbon Dioxide Anion Gap BUN Creatinine Est Cr Clr Drug Dosing Est GFR ( Amer) Est GFR (Non-Af Amer) BUN/Creatinine Ratio Glucose Lactate 0.9 Calcium Procalcitonin Urine Color Urine Appearance Urine pH Ur Specific [place] Urine Protein Urine Glucose (UA) Urine Ketones Urine Blood Urine Nitrite Urine Bilirubin Urine Urobilinogen Ur Leukocyte Esterase Urine WBC (Auto) Urine RBC (Auto) U Hyaline Cast (Auto) U Epithel Cells (Auto) Urine Bacteria (Auto) 04/16/20 04/16/20 04/16/20 01:24 01:24 01:24 WBC 30.01 H* RBC 3.55 L Hgb 9.5 L Hct 29.7 L MCV 83.7 MCH 26.8 MCHC 32.0 RDW Std Deviation 74.5 H RDW Coeff of Uma 26.9 H Plt Count 151 MPV 9.6 Immature Gran % (Auto) 2.2 Neut % (Auto) 78.6 Lymph % (Auto) 10.3 Barron % (Auto) 8.4 Eos % (Auto) 0.4 Baso % (Auto) 0.1 Neut # (Auto) 23.61 H Lymph # (Auto) 3.09 Barron # (Auto) 2.51 H Eos # (Auto) 0.11 Baso # (Auto) 0.04 Immature Gran # (Auto) 0.65 H Absolute Nucleated RBC 0.15 H Nucleated RBC % (auto) 0.5 Toxic Granulation 1+ Toxic Vacuolation Occasional Dohle Bodies 1+ Polychromasia 1+ Ovalocytes 1+ Echinocytes 1+ APTT PTT Ratio Sodium 139 Potassium 3.1 L D Chloride 105 Carbon Dioxide 25 Anion Gap 9.0 BUN 31 H Creatinine 0.81 Est Cr Clr Drug Dosing 45.1 Est GFR ( Amer) 78.9 Est GFR (Non-Af Amer) 68.1 BUN/Creatinine Ratio 38.1 H Glucose 81 Lactate Calcium 8.1 L Procalcitonin 1.15 H Urine Color Urine Appearance Urine pH Ur Specific [place] Urine Protein Urine Glucose (UA) Urine Ketones Urine Blood Urine Nitrite Urine Bilirubin Urine Urobilinogen Ur Leukocyte Esterase Urine WBC (Auto) Urine RBC (Auto) U Hyaline Cast (Auto) U Epithel Cells (Auto) Urine Bacteria (Auto) 04/16/20 04/16/20 04/16/20 03:11 03:50 06:25 WBC RBC Hgb Hct MCV MCH MCHC RDW Std Deviation RDW Coeff of Uma Plt Count MPV Immature Gran % (Auto) Neut % (Auto) Lymph % (Auto) Barron % (Auto) Eos % (Auto) Baso % (Auto) Neut # (Auto) Lymph # (Auto) Barron # (Auto) Eos # (Auto) Baso # (Auto) Immature Gran # (Auto) Absolute Nucleated RBC Nucleated RBC % (auto) Toxic Granulation Toxic Vacuolation Dohle Bodies Polychromasia Ovalocytes Echinocytes APTT 78.9 H* 28.0 PTT Ratio 2.8 1.0 Sodium Potassium Chloride Carbon Dioxide Anion Gap BUN Creatinine Est Cr Clr Drug Dosing Est GFR ( Amer) Est GFR (Non-Af Amer) BUN/Creatinine Ratio Glucose Lactate Calcium Procalcitonin Urine Color Yellow Urine Appearance Cloudy A Urine pH 5.0 Ur Specific [place] 1.045 H Urine Protein Trace H Urine Glucose (UA) Negative Urine Ketones Trace H Urine Blood Negative Urine Nitrite Negative Urine Bilirubin Negative Urine Urobilinogen Negative Ur Leukocyte Esterase Negative Urine WBC (Auto) 5-10 H Urine RBC (Auto) 5-10 H U Hyaline Cast (Auto) 1-5 U Epithel Cells (Auto) >30 H Urine Bacteria (Auto) Negative 04/16/20 13:58 WBC RBC Hgb Hct MCV MCH MCHC RDW Std Deviation RDW Coeff of Uma Plt Count MPV Immature Gran % (Auto) Neut % (Auto) Lymph % (Auto) Barron % (Auto) Eos % (Auto) Baso % (Auto) Neut # (Auto) Lymph # (Auto) Barron # (Auto) Eos # (Auto) Baso # (Auto) Immature Gran # (Auto) Absolute Nucleated RBC Nucleated RBC % (auto) Toxic Granulation Toxic Vacuolation Dohle Bodies Polychromasia Ovalocytes Echinocytes APTT > 139.0 H* PTT Ratio > 5.0 Sodium Potassium Chloride Carbon Dioxide Anion Gap BUN Creatinine Est Cr Clr Drug Dosing Est GFR ( Amer) Est GFR (Non-Af Amer) BUN/Creatinine Ratio Glucose Lactate Calcium Procalcitonin Urine Color Urine Appearance Urine pH Ur Specific [place] Urine Protein Urine Glucose (UA) Urine Ketones Urine Blood Urine Nitrite Urine Bilirubin Urine Urobilinogen Ur Leukocyte Esterase Urine WBC (Auto) Urine RBC (Auto) U Hyaline Cast (Auto) U Epithel Cells (Auto) Urine Bacteria (Auto) (1) Pulmonary emboli Acute cor pulmonale presence: unspecified Chronicity: acute Pulmonary embolism type: other Qualified Code(s): I26.99 - Other pulmonary embolism without acute cor pulmonale
[2020-04-16] MEDS: CEFEPIME 2,000 MG in SYRINGE 0 ML IV SCH (15:21)
--- NOTE | 2020-04-16 15:43 | Pharmacy Report ---
Pharmacy Abx Dose Short Note - Date of Service April 16, 2020 - Assessment & Plan Assessment * 79 year old F with metastatic colon CA on active chemotherapy plus a colony stimulating factor (CSF) receiving cefepime and vanco empirically * WBC elevation could be due to CSF, but procal also elevated. Patient is afebrile. * Meets criteria for vancomycin dose based on AUC Plan * Vancomycin 1500 mg IV x1 then 750 mg IV q12h * Will hold off on a level for now unless therapy is expected to continue past 48 hours Pharmacy will continue to follow and will adjust dose/frequency as necessary. Thank you.
[2020-04-16 16:16] LABS: Partial Thromboplastin Ratio 3.3
[2020-04-16] MEDS: HEPARIN SODIUM/DEXTROSE 25,000 UNITS/500 ML BAG IV SCH (16:24)
[2020-04-16] MEDS ORDERED: AMIODARONE 200 MG TAB PO ONE (17:15)
--- NOTE | 2020-04-16 17:55 | Critical Care Consultation ---
Date of Consultation April 16, 2020 Assessment & Plan (1) Atrial fibrillation with rapid ventricular response: 79-year-old female with a past medical history of stage IV metastatic colorectal cancer currently on FOLFOX therapy, atrial fibrillation and newly diagnosed bilateral pulmonary emboli presenting to the hospital now found to have hypotension. Continue heparin drip for her pulmonary embolism. I suspect that the patient's hypotension was related to hypovolemia due to decreased p.o. intake and loss of atrial kick from her atrial fibrillation with rapid ventricular response. I suspect she does likely have some degree of chronic pulmonary hypertension possibly due to secondary left-sided heart disease. There may be an acute component of pulmonary hypertension given her acute pulmonary emboli. Given how stable she looks presently after fluid boluses, I do not think that this is a massive pulmonary embolism. Troponins were not elevated yesterday which would suggest that this is a moderate risk pulmonary embolism. Cardiology was consulted and they have given her digoxin load and started oral amiodarone. We will check a TSH given her atrial fibrillation. Repeat a BMP as her potassium was 3.1 early this morning. Will check a magnesium and phosphorus level as well. Maintain potassium above 4 and magnesium above 2. Check a lactate level. Trend troponins. Holding metoprolol tartrate at this time due to hypotension. Procalcitonin is elevated. We will start her on vancomycin and cefepime. No evidence of infection on urinalysis. Blood cultures pending. Possible pulmonary infarct on CT of her chest. We will asked that the CT chest images and abdomen images are uploaded. I had a lengthy discussion with the patient and her at bedside. Her is a former surgeon who is now retired. Patient would like to remain a full code at this time. Continue ICU monitoring. Patient also discussed with the hospitalist. I have personally spent 43 minutes of critical care time in the direct management of this patient. This is a life/limb threatening event. This includes time spent evaluating patient, direct bedside care, chart review, placing orders, interpretation of diagnostic studies, discussion with consultants, patient, and family members, as well as other required patient management activities. This time is exclusive of all separately billable procedures, and teaching time and separate from and in addition to any other critical care service time. Thank you for allowing us to participate in the care of this patient. (2) Pulmonary emboli: (3) Colon cancer metastasized to liver: (4) Arterial hypotension: History of Present Illness Reason for Consultation: Atrial fibrillation with rapid ventricular response Requesting Physician: Dr. Manrique Attending Physician: Ellie Manrique DO History of Present Illness 79-year-old female with a past medical history of paroxysmal atrial fibrillation, metastatic stage IV rectal adenocarcinoma with hepatic metastases on chemotherapy, intermittent lower GI bleed and acute bilateral pulmonary emboli who is presenting to the hospital as an admission secondary to acutely discovered pulmonary emboli on CT chest that was ordered for follow-up as an outpatient for response to chemotherapy. Patient denies any shortness of breath, fevers or chills. She denies any cough symptoms. Denies chest pain. She does note increasingly worse p.o. intake. Her is at bedside. Patient was found to be in A. fib RVR today with low blood pressures. ICU was consulted for evaluation especially in light of her recently discovered acute pulmonary emboli. Echocardiogram was done which demonstrated an EF of 55 to 60%. Very mild hypokinesis of the inferior posterior wall with mild flattening apical hypokinesis consistent with pulmonary embolism. Moderate mitral regurg with severe tricuspid regurg seen. RVSP of 50 to 60 mmHg. White count elevated to 30,000. She did receive colony stimulating growth factor. He is currently on a heparin drip. Potassium is 3.1 at 1:24 AM. Procalcitonin was 1.15. Allergies Allergy/AdvReac Type Severity Reaction Status Date / Time No Known Allergies Allergy Unverified 04/15/20 13:54 Home Medications Home Medications Medication Instructions Recorded Confirmed Type atorvastatin 20 mg PO QAM 05/20/18 04/15/20 History lisinopril-hydrochlorothiazide 1 tab PO QAM 05/20/18 04/15/20 History metoprolol tartrate 25 mg PO BID #30 tab 05/20/18 04/15/20 Rx Magic Swizzle 15 ml PO QID PRN 04/15/20 04/15/20 History aspirin [Aspir-81] 81 mg PO DAILY 04/15/20 04/15/20 History docusate sodium 100 mg PO BID PRN 04/15/20 04/15/20 History ondansetron HCl 8 mg PO Q8H PRN 04/15/20 04/15/20 History polyethylene glycol 3350 [Miralax] 17 g PO BID 04/15/20 04/15/20 History prochlorperazine maleate 10 mg PO Q6H PRN 04/15/20 04/15/20 History senna 8.6 mg PO DAILY 04/15/20 04/15/20 History Patient History Medical History Chronic anticoagulation Colon cancer metastasized to liver HLD (hyperlipidemia) Hypertension Paroxysmal atrial fibrillation Surgical History History of dilation and curettage Family History Father Heart disease Mother Heart disease Social History Smoking Status: Former smoker Tobacco Type: Cigarettes Hx Alcohol Use: Yes Hx Substance Use: No Preferred Language: [place] Communication Ability: Effective Lithopress Operator Required: No Beliefs That Will Affect Care: None marital status: Current Living Situation: Spouse How many Children do You have: 6 Other Information That Helps Us Care for You: No Feels Safe at Home: Yes Safety Concerns: Feels Safe At This Time Assistive Devices: Oxygen - Continuous Review of Systems Review of Systems: All systems reviewed & are unremarkable except as noted in HPI & below Physical Exam Constitutional: Elderly-appearing female in no apparent distress. Lying in bed. Eyes: PERRL, conjunctivae normal, anicteric sclerae ENMT: external ear and nose normal, oropharynx normal Neck: trachea midline, no thyromegaly Respiratory: normal respiratory effort, lungs clear to auscultation Cardiovascular: RRR, no murmur, no edema Gastrointestinal (Abdomen): normal bowel sounds, soft, nontender, no hepatosplenomegaly Musculoskeletal: no cyanosis or clubbing, extremities motor strength 5/5 Skin: no rashes, warm and dry Neurologic: PERRL, EOMI, accommodation nl, no face palsy, no dysarthria Psychiatric: A+Ox3, euthymic affect Results & Data Results & Data ([facility]) Vital Signs (Past 12 Hours) Vital Signs Temp Pulse Pulse Resp BP BP Pulse Ox 04/16/20 16:33 112 H 26 H 106/65 04/16/20 15:54 100 H 04/16/20 15:45 98.4 F 113 H 25 H 100/62 100 04/16/20 15:15 96 H 21 99/55 L 04/16/20 14:45 98.4 F 100 H 23 123/56 L 04/16/20 14:30 115 H 98/66 L 04/16/20 14:17 120 H 113/62 04/16/20 14:00 116 H 79/66 L 04/16/20 13:48 126 H 71/50 L 04/16/20 12:50 113 H 82/53 L 04/16/20 12:40 122 H 80/59 L 04/16/20 09:25 123 H 100/53 L 04/16/20 08:00 129 H 82/73 L 04/16/20 07:22 97.5 F L 145 H 16 87/62 L I reviewed vital signs, labs and imaging Coding Level of Care Code Critical Care 1st 30-74 mins Diagnoses Atrial fibrillation with rapid ventricular response I48.91 Pulmonary emboli I26.99 Acute cor pulmonale presence: unspecified Chronicity: acute Pulmonary embolism type: other Colon cancer metastasized to liver C18.9; C78.7 Arterial hypotension I95.9 Time Spent (min) 43 (1) Pulmonary emboli Acute cor pulmonale presence: unspecified Chronicity: acute Pulmonary embolism type: other Qualified Code(s): I26.99 - Other pulmonary embolism without acute cor pulmonale
[2020-04-16 18:21] LABS: Hematocrit (blood only) 29.4 % (37-47); Hemoglobin 9.3 g/dL (12.0-16.0); Mean Corpuscular Hgb Conc 31.6 g/dL (32-36); Mean Corpuscular Volume 85.2 fL (80-100); Mean Platelet Volume 9.7 fL (7.4-10.4); Nucleated RBC # (auto) 0.19 K/uL (0-0); Nucleated RBC % (auto) 0.6 %; Platelet Count 179 K/uL (130-400); RDW Coefficient of Variation 27.9 % (11.5-14.5); RDW Standard Deviation 79.9 fL (36.4-46.3); Red Blood Count 3.45 M/uL (4.2-5.4); White Blood Count 34.23 K/uL (4.8-10.8)
[2020-04-16 18:39] LABS: Anisocytosis Present; Basophils # (auto) 0.06 K/uL (0-0.2); Basophils % (auto) 0.2 %; Echinocytes 1+; Eosinophils # (auto) 0.09 K/uL (0-0.5); Eosinophils % (auto) 0.3 %; Immature Granulocytes # (auto) 0.79 K/uL (0.00-0.02); Immature Granulocytes % (auto) 2.3 %; Lymphocytes # (auto) 2.65 K/uL (1.2-3.4); Lymphocytes % (auto) 7.7 %; Monocytes # (auto) 2.96 K/uL (0.11-0.59); Monocytes % (auto) 8.6 %; Neutrophils # (auto) 27.68 K/uL (1.4-6.5); Neutrophils % (auto) 80.9 %; Polychromasia 1+; Toxic Granulation 1+
[2020-04-16 18:58] LABS: Alanine Aminotransferase 15 U/L (12-78); Albumin Level 1.7 gm/dl (3.4-5.0); Aspartate Aminotransferase 18 U/L (15-37); BUN Creatinine Ratio 33.4 (10-20); Bilirubin Direct 0.2 mg/dl (0-0.2); Blood Urea Nitrogen 21 mg/dl (7-18); Calcium 7.6 mg/dl (8.5-10.1); Carbon Dioxide 23 mmol/L (21-32); Chloride 111 mmol/L (98-107); Creatinine Clr Calc Pharmacy 57.9 ml/min; Est GFR (African American) 97.5; Est GFR (Non-African American) 84.1; Glucose 105 mg/dl (70-99); Magnesium 1.8 mg/dl (1.8-2.4); Sodium 141 mmol/L (136-145)
[2020-04-16 19:00] LABS: Alkaline Phosphatase 119 U/L (45-117); Bilirubin,Total 0.5 mg/dl (0.2-1); Phosphorus 2.3 mg/dl (2.5-4.9); Total Protein 4.7 gm/dl (6.4-8.2); Troponin I < 0.015 ng/ml (0-0.045)
[2020-04-16] MEDS ORDERED: AMIODARONE / D5W 360 MG/200 ML BAG IV SCH (19:30)
[2020-04-16] MEDS: AMIODARONE 200 MG TAB PO SCH (20:42)
--- NOTE | 2020-04-16 21:38 | Hospitalist Progress Note ---
Date of Service April 16, 2020 Assessment & Plan (1) Bilateral pulmonary embolism: Hemodynamically unstable this morning. Gave bolus normal saline to augment preload to improve cardiac output which worked temporarily. Patient was also in atrial fibrillation with RVR. Became progressively hypotensive again from 100 systolic down to 70 systolic. Consulted cardiology with initial recommendations to give amiodarone as rate agent was contraindicated in setting of hypotension. However when systolic pressure went to 70, contacted nicker and breaker and transferred her to the ICU. She does not appear to have a massive or submassive PE it is clinically doing well despite the clot burden he re. She continues on a heparin drip overnight and will ultimately transition to Lovenox in the setting of malignancy. Echo was ordered and revealed RV strain and no pericardial effusion. LV function is grossly normal. Digoxin was used for rate slowing and as blood pressure improves in the ICU cardiology recommended beginning amiodarone oral or IV for rate control and hopeful conversion back to sinus rhythm. Continue to hold metoprolol (2) Left leg DVT: Left leg profunda vein thrombus extending into the common femoral junction. Previous anticoagulation for atrial fibrillation in the setting of gastric malignancy was discontinued on February 2020 due to GI bleeding. She did tolerate Lovenox in the past however. Vascular surgery was consulted for potential IVC filter, however this may have been too early and would consider reconsulting them for IVC filter if the patient does not tolerate heparin or Lovenox moving forward. (3) Subclavian artery disease: Subclavian steal confirmed by carotid doppler on the left. Take all BP in the right for accuracy. She has no dizziness, syncope, numbness, hearing issues, vertigo or pain to the left arm. states he has known about this in the past and he is unphased if she is asymptomatic. Would discuss with vascular specialist nonurgently as outpatient. (4) Leukocytosis: -WBC 30 K -Dr. Torres notified, likely due to recent Ziextenzo injection on 04/03 Although no clear signs of infection she may be septic, so empiric abx were added today pending cultures and clinical improvement. (5) Colon cancer metastasized to liver: -Follows with Dr. Torres -Currently receiving chemotherapy with Avastin and FOLFOX, last dose on 03/31 (6) Paroxysmal atrial fibrillation: Currently in afib w RVR, treatment plan as above including heparin drip, dig with transition to amiodarone. Hold betablocker. Cont IVF for now to support hemodynamics. (7) Hypertension: Holding lis/HCTZ for now as she is hypotensive. (8) DVT prophylaxis: Heparin Full Code Dispo-transferred to ICU DO Alexandru Barakat Hospitalist Admission and Anticipated Discharge Date Admission Date: April 15, 2020 Subjective Pt feeling well no increased work of breathing denies chest pain denies any pain Review of Systems Review of Systems: All systems reviewed & are unremarkable except as noted in Subjective Physical Exam Physical Exam: CONSTITUTIONAL: WNWD, vitals as above, generally well- appearing EYES: normal conjunctivae, no scleral icterus ENT: external ear and nose normal, MMM RESPIRATORY: crackles heard at left base, otherwise clear without wheezes or rales, normal respiratory effort CARDIOVASCULAR: tachy rate and irregular rhythm, S1 and 2 heard without murmurs, gallops or rubs, no JVD GASTROINTESTINAL: soft, nontender, nondistended, no guarding. MUSCULOSKELETAL: strength 5/5 throughout, head is normocephalic and atraumatic SKIN: warm and dry NEUROLOGIC: No facial palsy, no dysarthria. CN 2-12 grossly intact, normal cognition, normal speech, no tremor PSYCHIATRIC: alert cooperative and oriented to person, place and time. Results & Data Results & Data ([facility]) Vital Signs (Past 12 Hours) Vital Signs Temp Pulse Pulse Resp BP BP Pulse Ox 04/16/20 20:11 36.6 C 91 H 16 112/43 L 100 04/16/20 19:11 125 H 21 117/34 L 99 04/16/20 19:04 151 H 23 118/69 98 04/16/20 17:11 94 H 17 120/44 L 04/16/20 16:33 112 H 26 H 106/65 04/16/20 15:54 100 H 04/16/20 15:45 36.9 C 113 H 25 H 100/62 100 04/16/20 15:15 96 H 21 99/55 L 04/16/20 14:45 36.9 C 100 H 23 123/56 L 04/16/20 14:30 115 H 98/66 L 04/16/20 14:17 120 H 113/62 04/16/20 14:00 116 H 79/66 L 04/16/20 13:48 126 H 71/50 L 04/16/20 12:50 113 H 82/53 L 04/16/20 12:40 122 H 80/59 L Laboratory Results Short CBC 04/16/20 04/16/20 Range/Units 01:24 18:10 WBC 30.01 H* 34.23 H* (4.8-10.8) K/uL Hgb 9.5 L 9.3 L (12.0-16.0) g/dL Hct 29.7 L 29.4 L (37-47) % Plt Count 151 179 (130-400) K/uL BMP 04/16/20 04/16/20 01:24 18:10 Sodium 139 141 Potassium 3.1 L D 4.0 D Chloride 105 111 H Carbon Dioxide 25 23 BUN 31 H 21 H Creatinine 0.81 0.63 Glucose 81 105 H Calcium 8.1 L 7.6 L Cardiac Enzymes 04/16/20 Range/Units 18:10 Troponin I < 0.015 (0-0.045) ng/ml Liver Function 04/16/20 Range/Units 18:10 Total Bilirubin 0.5 (0.2-1) mg/dl Direct Bilirubin 0.2 (0-0.2) mg/dl AST 18 (15-37) U/L ALT 15 (12-78) U/L Alkaline Phosphatase 119 H (45-117) U/L Albumin 1.7 L (3.4-5.0) gm/dl Urine 04/16/20 Range/Units 03:50 Urine Color Yellow Urine Appearance Cloudy A (Clear) Urine pH 5.0 (4.5-7.5) Ur Specific [place] 1.045 H (1.000-1.030) Urine Protein Trace H (Negative) Urine Glucose (UA) Negative (Negative) Medications Administered Current Inpatient Medications Acetaminophen (Acetaminophen 325 Mg Tab) 650 mg PO Q4H PRN PRN Reason: Pain or Fever Stop: 05/15/20 15:38 Amiodarone HCl (Amiodarone 200 Mg Tab) 200 mg PO QID VICTOR M Stop: 05/16/20 20:59 Last Admin: 04/16/20 20:42 Dose: 200 mg Documented by: Nystatin 30 ml/ Dexamethasone 3.75 mg/ Diphenhydramine HCl 300 mg/ Sucrose 45 ml/Microcrystalline Cellulose 45 ml/ BARCODE IDENTIFIER 1 ea 0 ml PO Q4H PRN PRN Reason: Mild Pain Stop: 05/15/20 16:45 Docusate Sodium (Docusate Sodium 100 Mg Cap) 100 mg PO BID PRN PRN Reason: Constipation Stop: 05/15/20 15:38 Heparin Sodium (Porcine) (Heparin 100 Unit/Ml 5ml Flush) 5 ml FLUSH PRN PRN PRN Reason: Flush Stop: 05/15/20 22:08 Heparin Sodium/Dextrose (Heparin Sodium/Dextrose) 25,000 units in 500 mls @ 14 mls/hr IV .Q24H VICTOR M; Protocol Stop: 05/15/20 15:38 Last Titration: 04/16/20 18:59 Dose: 700 units/hr, 14 mls/hr Documented by: Cefepime HCl 2,000 mg/ Syringe 20 mls @ 5 mls/min IV Q12H VICTOR M Stop: 04/18/20 14:59 Last Admin: 04/16/20 15:21 Dose: 5 mls/min Documented by: Vancomycin HCl 750 mg/ Sodium (Chloride) 265 mls @ 125 mls/hr IV Q12H VICTOR M Stop: 04/18/20 14:59 Influenza Virus Vaccine (Influenza Vaccine High Dose 65+ 0.5 Ml Syr) 0.5 ml IM .ONCE ONE Stop: 04/29/20 09:01 Metoprolol Tartrate (Metoprolol Tartrate 25 Mg Tab) 25 mg PO BID [facility] Stop: 05/15/20 20:59 Last Admin: 04/16/20 08:15 Dose: Not Given Documented by: Miscellaneous Information (Cefepime Consult Active) 1 ea N/A UD PRN PRN Reason: Consult Stop: 05/16/20 14:42 Miscellaneous Information (Vancomycin Consult Active) 1 ea N/A UD PRN PRN Reason: Consult Stop: 05/16/20 14:44 Polyethylene Glycol (Polyethylene (Miralax) 17 Gm Pack) 17 gm PO BID [facility] Stop: 05/15/20 20:59 Last Admin: 04/16/20 08:16 Dose: Not Given Documented by: Sennosides (Senna 8.6 Mg Tab) 8.6 mg PO DAILY [facility] Stop: 05/16/20 08:59 Last Admin: 04/16/20 08:16 Dose: Not Given Documented by: (1) Hypertension Hypertension type: essential hypertension Qualified Code(s): I10 - Essential (primary) hypertension
[2020-04-16 23:08] LABS: Partial Thromboplastin Ratio 4.8
[2020-04-16 23:18] LABS: Partial Thromboplastin Time 134.5 Seconds (21.0-31.0)
[2020-04-17 00:47] LABS: Partial Thromboplastin Ratio 2.9
[2020-04-17 00:51] LABS: Partial Thromboplastin Time 81.7 Seconds (21.0-31.0)
[2020-04-17] MEDS ORDERED: VANCOMYCIN HCL 750 MG in SODIUM CHLORIDE 0.9% 250 ML IV SCH (03:00)
[2020-04-17] MEDS: CEFEPIME 2,000 MG in SYRINGE 0 ML IV SCH ×3 (03:45→21:47)
[2020-04-17 06:53] LABS: Hematocrit (blood only) 28.8 % (37-47); Hemoglobin 9.2 g/dL (12.0-16.0); Mean Corpuscular Hemoglobin 27.1 pg (25-34); Mean Corpuscular Hgb Conc 31.9 g/dL (32-36); Mean Platelet Volume 9.3 fL (7.4-10.4); Nucleated RBC # (auto) 0.17 K/uL (0-0); Nucleated RBC % (auto) 0.5 %; Platelet Count 180 K/uL (130-400); RDW Standard Deviation 78.7 fL (36.4-46.3); Red Blood Count 3.39 M/uL (4.2-5.4); White Blood Count 32.59 K/uL (4.8-10.8)
[2020-04-17 07:04] LABS: Anisocytosis Present; Basophils # (auto) 0.05 K/uL (0-0.2); Basophils % (auto) 0.2 %; Echinocytes 1+; Eosinophils # (auto) 0.04 K/uL (0-0.5); Eosinophils % (auto) 0.1 %; Immature Granulocytes # (auto) 0.85 K/uL (0.00-0.02); Immature Granulocytes % (auto) 2.6 %; Lymphocytes # (auto) 1.95 K/uL (1.2-3.4); Monocytes # (auto) 2.48 K/uL (0.11-0.59); Monocytes % (auto) 7.6 %; Neutrophils # (auto) 27.22 K/uL (1.4-6.5); Neutrophils % (auto) 83.5 %; Polychromasia 1+; Toxic Granulation 1+
[2020-04-17 07:13] LABS: BUN Creatinine Ratio 34.2 (10-20); Blood Urea Nitrogen 18 mg/dl (7-18); Calcium 7.9 mg/dl (8.5-10.1); Carbon Dioxide 22 mmol/L (21-32); Chloride 112 mmol/L (98-107); Creatinine Clr Calc Pharmacy 75.6 ml/min; Est GFR (African American) 103.2; Glucose 103 mg/dl (70-99); Magnesium 1.8 mg/dl (1.8-2.4); Potassium 3.7 mmol/L (3.5-5.1); Sodium 142 mmol/L (136-145)
[2020-04-17 07:18] LABS: Phosphorus 2.2 mg/dl (2.5-4.9); Troponin I < 0.015 ng/ml (0-0.045)
[2020-04-17] MEDS ORDERED: POTASSIUM CHLORIDE 20 MEQ TABCR PO STA (07:38)
[2020-04-17] MEDS ORDERED: POTASSIUM PHOS 3 MMOL/1 ML INFUSION IV STA (07:47)
[2020-04-17] MEDS ORDERED: FUROSEMIDE 20 MG in SYRINGE 0 ML IV ONE (08:00)
--- NOTE | 2020-04-17 08:04 | Critical Care Progress Note ---
Date of Service April 17, 2020 Assessment & Plan (1) Atrial fibrillation with rapid ventricular response: 79-year-old female with a past medical history of stage IV metastatic colorectal cancer currently on FOLFOX therapy, atrial fibrillation and newly diagnosed bilateral pulmonary emboli presenting to the hospital now found to have hypotension. Continue heparin drip for her pulmonary embolism. I suspect that the patient's hypotension was related to hypovolemia due to decreased p.o. intake and loss of atrial kick from her atrial fibrillation with rapid ventricular response. I suspect she does likely have some degree of chronic pulmonary hypertension possibly due to secondary left-sided heart disease. There may be an acute component of pulmonary hypertension given her acute pulmonary emboli. Repleting electrolytes. Blood cultures pending. Repeat procalcitonin ordered. Continue antibiotics to cover empirically for sepsis. Added metoprolol as her heart rates are still little bit elevated. She is wheezing a bit which may be related to volume overload from the volume that she received yesterday. Holding fluids. Will obtain a chest x-ray. We will keep a close eye on her blood pressure. Continue amiodarone per cardiology recommendations. Will check a digoxin level today. She can likely be transferred to the floor later today. Overall her gnosis is guarded given her stage IV metastatic disease. (2) Pulmonary emboli: (3) Colon cancer metastasized to liver: (4) Arterial hypotension: Admission and Anticipated Discharge Date Admission Date: April 15, 2020 Subjective Patient seen and examined this morning. She is drinking her coffee. She denies any complaints overnight. Periods of atrial fibrillation with rapid ventricular response noted. No issues overnight per nursing. Review of Systems Review of Systems: All systems reviewed & are unremarkable except as noted in HPI & below Physical Exam Constitutional: Elderly-appearing female in no apparent distress. Lying in b ed. Eyes: PERRL, conjunctivae normal, anicteric sclerae ENMT: external ear and nose normal, oropharynx normal Neck: trachea midline, no thyromegaly Respiratory: normal respiratory effort, lungs clear to auscultation Cardiovascular: RRR, no murmur, no edema Gastrointestinal (Abdomen): normal bowel sounds, soft, nontender, no hepatosplenomegaly Musculoskeletal: no cyanosis or clubbing, extremities motor strength 5/5 Skin: no rashes, warm and dry Neurologic: PERRL, EOMI, accommodation nl, no face palsy, no dysarthria Psychiatric: A+Ox3, euthymic affect Results & Data Results & Data ([facility]) Vital Signs (Past 12 Hours) Vital Signs Temp Pulse Resp BP Pulse Ox 04/17/20 06:30 85 15 93/66 L 100 04/17/20 06:00 83 12 04/17/20 05:00 98 H 14 04/17/20 04:21 111 H 20 103/62 04/17/20 04:11 123 H 22 85/49 L 04/17/20 03:12 97.3 F L 103 H 15 96/56 L 99 04/17/20 02:11 95 H 13 91/57 L 100 04/17/20 01:11 98 H 21 117/58 L 100 04/17/20 00:11 116 H 22 105/70 100 04/16/20 23:45 87 04/16/20 23:28 98.2 F 124 H 20 113/54 L 04/16/20 23:11 96 H 17 82/55 L 100 04/16/20 22:11 105 H 18 112/64 100 04/16/20 20:11 97.9 F 91 H 16 112/43 L 100 I reviewed vital signs, labs and imaging Coding Level of Care Code 77325 Subseq Hosp Care Lvl 3 Diagnoses Atrial fibrillation with rapid ventricular response I48.91 Pulmonary emboli I26.99 Acute cor pulmonale presence: unspecified Chronicity: acute Pulmonary embolism type: other Colon cancer metastasized to liver C18.9; C78.7 Arterial hypotension I95.9 (1) Pulmonary emboli Acute cor pulmonale presence: unspecified Chronicity: acute Pulmonary embolism type: other Qualified Code(s): I26.99 - Other pulmonary embolism without acute cor pulmonale
--- NOTE | 2020-04-17 08:12 | XRay Report ---
XR chest 1V portable CLINICAL HISTORY: wheezing, congestive failure COMPARISON STUDY: 04/15/2020 FINDINGS: There is a right-sided A-Port catheter present. The cardiac and mediastinal contours remain stable. There are small bilateral pleural effusions. There are persistent right lower lung zone airs pace opacities, pneumonia versus pulmonary infarct (given the clinical history of recent pulmonary em bolism)[ IMPRESSION: 1. Small bilateral pleural effusions 2. Persistent nonspecific right lower lung zone airspace opacities ACT 112: Negative or not required by law. Electronically signed by: Sarbjit Echavarria M.D. 04/17/2020 8:11 AM
[2020-04-17] MEDS: MAGNESIUM SULFATE / D5W 1 GM/100 ML BAG IV SCH ×2 (08:13→10:52)
[2020-04-17] MEDS: AMIODARONE 200 MG TAB PO SCH ×4 (08:14→21:13)
[2020-04-17] MEDS: METOPROLOL TARTRATE 25 MG TAB PO SCH ×2 (08:14→21:13)
[2020-04-17] MEDS: SENNA 8.6 MG TAB PO SCH (08:15)
[2020-04-17] MEDS ORDERED: POTASSIUM PHOSPHATE 21 MMOL in SODIUM CHLORIDE 0.9% 500 ML IV ONE (08:15)
[2020-04-17] MEDS: POLYETHYLENE (MIRALAX) 17 GM PACK PO SCH ×2 (08:15→20:41)
--- NOTE | 2020-04-17 10:27 | Cardiology Progress Note ---
Date of Service April 17, 2020 Assessment & Plan (1) Atrial fibrillation with rapid ventricular response: Patient is an 79-year-old female with past history of paroxysmal atrial fibrillation currently in atrial fibrillation with rapid response in the setting of acute stressors of bilateral pulmonary emboli. Patient carries an underlying complex history of metastatic rectal carcinoma and past difficulties with intermittent GI bleeding. Currently not on anticoagulation Patient denies acute complaints and not hypoxic however blood pressure soft with elevated ventricular response rate. Echocardiogram does not suggest acute right ventricular pressure overload and overall LV systolic function grossly normal on initial evaluation Anticoagulation initiated with heparin. Patient is morning without significant symptoms though heart rate still persistently elevated. Metoprolol restarted would continue oral amiodarone load at 200 mg 4 times daily. Atorvastatin discontinued (2) Pulmonary emboli: (3) Left leg DVT: (4) Paroxysmal atrial fibrillation: (5) Colon cancer metastasized to liver: Admission and Anticipated Discharge Date Admission Date: April 15, 2020 Subjective Patient was seen and examined, chart, medications, telemetry reviewed. No acute complaints this morning. Blood pressures have improved but remains in atrial fibrillation with elevated ventricular response No acute dyspnea or chest pain. Physical Exam Constitutional: + ill appearing; no acute distress Eyes: PERRL, conjunctivae normal, anicteric sclerae ENMT: external ear and nose normal, oropharynx normal Neck: trachea midline, no thyromegaly Respiratory: Auscultation: + diminished lung sounds; no wheezes Cardiovascular: Rate/Rhythm: + tachycardic and + irregularly irregular Heart Sounds: normal S1 and normal S2 Vessels: no JVD Extremities: + edema (1+ left greater than right) Results & Data ([facility]) Vital Signs (Past 12 Hours) Vital Signs Temp Pulse Resp BP Pulse Ox 04/17/20 06:30 85 15 93/66 L 100 04/17/20 06:00 83 12 04/17/20 05:00 98 H 14 04/17/20 04:21 111 H 20 103/62 04/17/20 04:11 123 H 22 85/49 L 04/17/20 03:12 36.3 C L 103 H 15 96/56 L 99 04/17/20 02:11 95 H 13 91/57 L 100 04/17/20 01:11 98 H 21 117/58 L 100 04/17/20 00:11 116 H 22 105/70 100 04/16/20 23:45 87 09/24/20 23:28 36.8 C 124 H 20 113/54 L 04/16/20 23:11 96 H 17 82/55 L 100 Laboratory Results Laboratory Results - last 24 hr 04/16/20 04/16/20 04/16/20 13:58 14:41 15:46 WBC RBC Hgb Hct MCV MCH MCHC RDW Std Deviation RDW Coeff of Uma Plt Count MPV Immature Gran % (Auto) Neut % (Auto) Lymph % (Auto) Andrew % (Auto) Eos % (Auto) Baso % (Auto) Neut # (Auto) Lymph # (Auto) Andrew # (Auto) Eos # (Auto) Baso # (Auto) Immature Gran # (Auto) Absolute Nucleated RBC Nucleated RBC % (auto) Toxic Granulation Polychromasia Anisocytosis Echinocytes APTT > 139.0 H* 93.0 H* PTT Ratio > 5.0 3.3 Sodium Potassium Chloride Carbon Dioxide Anion Gap BUN Creatinine Est Cr Clr Drug Dosing Est GFR ( Amer) Est GFR (Non-Af Amer) BUN/Creatinine Ratio Glucose POC Glucose Lactate Calcium Phosphorus Magnesium Total Bilirubin Direct Bilirubin AST ALT Alkaline Phosphatase Troponin I Total Protein Albumin Procalcitonin TSH Nasal Screen MRSA (PCR) Negative Stl C. diff Tox B Gene Digoxin 04/16/20 04/16/20 04/16/20 17:47 18:10 18:10 WBC RBC Hgb Hct MCV MCH MCHC RDW Std Deviation RDW Coeff of Uma Plt Count MPV Immature Gran % (Auto) Neut % (Auto) Lymph % (Auto) Andrew % (Auto) Eos % (Auto) Baso % (Auto) Neut # (Auto) Lymph # (Auto) Andrew # (Auto) Eos # (Auto) Baso # (Auto) Immature Gran # (Auto) Absolute Nucleated RBC Nucleated RBC % (auto) Toxic Granulation Polychromasia Anisocytosis Echinocytes APTT PTT Ratio Sodium 141 Potassium 4.0 D Chloride 111 H Carbon Dioxide 23 Anion Gap 7.0 BUN 21 H Creatinine 0.63 Est Cr Clr Drug Dosing 57.9 Est GFR ( Amer) 97.5 Est GFR (Non-Af Amer) 84.1 BUN/Creatinine Ratio 33.4 H Glucose 105 H POC Glucose 83 Lactate 1.6 Calcium 7.6 L Phosphorus 2.3 L Magnesium 1.8 Total Bilirubin 0.5 Direct Bilirubin 0.2 AST 18 ALT 15 Alkaline Phosphatase 119 H Troponin I < 0.015 Total Protein 4.7 L Albumin 1.7 L Procalcitonin TSH 2.580 Nasal Screen MRSA (PCR) Stl C. diff Tox B Gene Digoxin 04/16/20 04/16/20 04/16/20 18:10 22:32 22:33 WBC 34.23 H* RBC 3.45 L Hgb 9.3 L Hct 29.4 L MCV 85.2 MCH 27.0 MCHC 31.6 L RDW Std Deviation 79.9 H RDW Coeff of Uma 27.9 H Plt Count 179 MPV 9.7 Immature Gran % (Auto) 2.3 Neut % (Auto) 80.9 Lymph % (Auto) 7.7 Andrew % (Auto) 8.6 Eos % (Auto) 0.3 Baso % (Auto) 0.2 Neut # (Auto) 27.68 H Lymph # (Auto) 2.65 Andrew # (Auto) 2.96 H Eos # (Auto) 0.09 Baso # (Auto) 0.06 Immature Gran # (Auto) 0.79 H Absolute Nucleated RBC 0.19 H Nucleated RBC % (auto) 0.6 Toxic Granulation 1+ Polychromasia 1+ Anisocytosis Present Echinocytes 1+ APTT 134.5 H* PTT Ratio 4.8 Sodium Potassium Chloride Carbon Dioxide Anion Gap BUN Creatinine Est Cr Clr Drug Dosing Est GFR ( Amer) Est GFR (Non-Af Amer) BUN/Creatinine Ratio Glucose POC Glucose 139 H Lactate Calcium Phosphorus Magnesium Total Bilirubin Direct Bilirubin AST ALT Alkaline Phosphatase Troponin I Total Protein Albumin Procalcitonin TSH Nasal Screen MRSA (PCR) Stl C. diff Tox B Gene Digoxin 04/17/20 04/17/20 04/17/20 00:15 00:15 04:00 WBC RBC Hgb Hct MCV MCH MCHC RDW Std Deviation RDW Coeff of Uma Plt Count MPV Immature Gran % (Auto) Neut % (Auto) Lymph % (Auto) Andrew % (Auto) Eos % (Auto) Baso % (Auto) Neut # (Auto) Lymph # (Auto) Andrew # (Auto) Eos # (Auto) Baso # (Auto) Immature Gran # (Auto) Absolute Nucleated RBC Nucleated RBC % (auto) Toxic Granulation Polychromasia Anisocytosis Echinocytes APTT 81.7 H* PTT Ratio 2.9 Sodium Potassium Chloride Carbon Dioxide Anion Gap BUN Creatinine Est Cr Clr Drug Dosing Est GFR ( Amer) Est GFR (Non-Af Amer) BUN/Creatinine Ratio Glucose POC Glucose Lactate Calcium Phosphorus Magnesium Total Bilirubin Direct Bilirubin AST ALT Alkaline Phosphatase Troponin I < 0.015 Total Protein Albumin Procalcitonin TSH Nasal Screen MRSA (PCR) Stl C. diff Tox B Gene Negative Cdiff Gene Digoxin 04/17/20 04/17/20 04/17/20 06:35 06:35 06:35 WBC 32.59 H* RBC 3.39 L Hgb 9.2 L Hct 28.8 L MCV 85.0 MCH 27.1 MCHC 31.9 L RDW Std Deviation 78.7 H RDW Coeff of Uma 28.0 H Plt Count 180 MPV 9.3 Immature Gran % (Auto) 2.6 Neut % (Auto) 83.5 Lymph % (Auto) 6.0 Andrew % (Auto) 7.6 Eos % (Auto) 0.1 Baso % (Auto) 0.2 Neut # (Auto) 27.22 H Lymph # (Auto) 1.95 Andrew # (Auto) 2.48 H Eos # (Auto) 0.04 Baso # (Auto) 0.05 Immature Gran # (Auto) 0.85 H Absolute Nucleated RBC 0.17 H Nucleated RBC % (auto) 0.5 Toxic Granulation 1+ Polychromasia 1+ Anisocytosis Present Echinocytes 1+ APTT 85.0 H* PTT Ratio 3.0 Sodium 142 Potassium 3.7 Chloride 112 H Carbon Dioxide 22 Anion Gap 8.0 BUN 18 Creatinine 0.53 L Est Cr Clr Drug Dosing 75.6 Est GFR ( Amer) 103.2 Est GFR (Non-Af Amer) 89.0 BUN/Creatinine Ratio 34.2 H Glucose 103 H POC Glucose Lactate Calcium 7.9 L Phosphorus 2.2 L Magnesium 1.8 Total Bilirubin Direct Bilirubin AST ALT Alkaline Phosphatase Troponin I < 0.015 Total Protein Albumin Procalcitonin TSH Nasal Screen MRSA (PCR) Stl C. diff Tox B Gene Digoxin 04/17/20 04/17/20 08:41 08:41 WBC RBC Hgb Hct MCV MCH MCHC RDW Std Deviation RDW Coeff of Uma Plt Count MPV Immature Gran % (Auto) Neut % (Auto) Lymph % (Auto) Andrew % (Auto) Eos % (Auto) Baso % (Auto) Neut # (Auto) Lymph # (Auto) Andrew # (Auto) Eos # (Auto) Baso # (Auto) Immature Gran # (Auto) Absolute Nucleated RBC Nucleated RBC % (auto) Toxic Granulation Polychromasia Anisocytosis Echinocytes APTT PTT Ratio Sodium Potassium Chloride Carbon Dioxide Anion Gap BUN Creatinine Est Cr Clr Drug Dosing Est GFR ( Amer) Est GFR (Non-Af Amer) BUN/Creatinine Ratio Glucose POC Glucose Lactate Calcium Phosphorus Magnesium Total Bilirubin Direct Bilirubin AST ALT Alkaline Phosphatase Troponin I Total Protein Albumin Procalcitonin 1.01 H TSH Nasal Screen MRSA (PCR) Stl C. diff Tox B Gene Digoxin 0.7 L (1) Pulmonary emboli Acute cor pulmonale presence: unspecified Chronicity: acute Pulmonary embolism type: other Qualified Code(s): I26.99 - Other pulmonary embolism without acute cor pulmonale
[2020-04-17] MEDS: PANTOprazole 40 MG TAB PO SCH (10:52)
[2020-04-17] MEDS: ENOXAPARIN INJ 60 MG/0.6 ML SYR SQ SCH ×2 (10:52→21:14)
--- NOTE | 2020-04-17 12:12 | Electrocardiogram Report ---
Test Reason : Blood Pressure : / mmHG Vent. Rate : 138 BPM Atrial Rate : 144 BPM P-R Int : 000 ms QRS Dur : 074 ms QT Int : 296 ms P-R-T Axes : 000 -86 137 degrees QTc Int : 448 ms Poor data quality, interpretation may be adversely affected Atrial fibrillation with rapid ventricular response Pulmonary disease pattern Left anterior fascicular block Septal infarct , age undetermined Abnormal ECG When compared with ECG of 28-JAN-2020 09:32, Left anterior fascicular block is now Present Septal infarct is now Present Nonspecific T wave abnormality now evident in Lateral leads Confirmed by Johnnie Amaya ([id number]) on 04/17/2020 12:12:10 PM Referred By: ED Confirmed By:Johnnie Amaya
--- NOTE | 2020-04-17 19:10 | Hospitalist Progress Note ---
Date of Service April 17, 2020 Assessment & Plan (1) Bilateral pulmonary embolism: Transitioned to Lovenox as PTT was continually supratherapeutic on heparin drip. No hematochezia with Lovenox transition. BP and HR improved after starting amiodarone. BB also started back at lower dose. (2) Left leg DVT: denies pain or swelling in leg. Offered TEDs in this leg. Cont Lovenox. (3) Subclavian artery disease: Subclavian steal confirmed by carotid doppler on the left. Take all BP in the right for accuracy. Would discuss with vascular specialist nonurgently as outpatient. (4) Leukocytosis: -WBC 32 K -Dr. Torres notified, likely due to recent Ziextenzo injection on 04/03 Although no clear signs of infection she may be septic, so empiric abx were adde d today pending cultures and clinical improvement. (5) Colon cancer metastasized to liver: -Follows with Dr. Torres -Currently receiving chemotherapy with Avastin and FOLFOX, last dose on 03/31 (6) Paroxysmal atrial fibrillation: Currently in afib with rate controlled. Amio was added to regimen yesterday, half dose BB was readded. (7) Hypertension: Holding lis/HCTZ for now as she is having relatively low blood pressures. (8) Anemia: Likely related to chemotherapy. No overt need to transfuse. Cont to trend H/H (9) DVT prophylaxis: Lovenox Full Code Dispo-transferred to ICU DO Alexandru Barakat Hospitalist Admission and Anticipated Discharge Date Admission Date: April 15, 2020 Subjective feeling well transferred back up to PCU from ICU started on amio-still in afib denies chest pain, SOB or other symptoms denies leg pain or swelling tolerating PO but from chemo feels apathetic to food, somewhat "wobbly" with walking. Review of Systems Review of Systems: All systems reviewed & are unremarkable except as noted in Subjective Physical Exam Physical Exam: CONSTITUTIONAL: WNWD, vitals as above, generally well- appearing EYES: normal conjunctivae, no scleral icterus ENT: external ear and nose normal, MMM RESPIRATORY: crackles heard at left base, otherwise clear without wheezes or rales, normal respiratory effort CARDIOVASCULAR: tachy rate and irregular rhythm, S1 and 2 heard without murmurs, gallops or rubs, no JVD GASTROINTESTINAL: soft, nontender, nondistended, no guarding. MUSCULOSKELETAL: strength 5/5 throughout, head is normocephalic and atraumatic SKIN: warm and dry NEUROLOGIC: No facial palsy, no dysarthria. CN 2-12 grossly intact, normal cognition, normal speech, no tremor PSYCHIATRIC: alert cooperative and oriented to person, place and time. Results & Data Results & Data ([facility]) Vital Signs (Past 12 Hours) Vital Signs Temp Pulse Pulse Pulse Resp BP BP 04/17/20 17:23 36.5 C 103 H 22 109/64 04/17/20 16:00 36.6 C 89 20 112/69 04/17/20 14:12 97 H 32 H 94/58 L 04/17/20 13:11 98 H 18 107/63 04/17/20 12:11 36.6 C 82 23 117/73 04/17/20 11:11 81 24 106/59 L 04/17/20 10:11 101 H 22 119/52 L 04/17/20 09:11 122 H 25 H 116/64 04/17/20 08:11 36.4 C L 113 H 24 111/73 04/17/20 07:11 92 H 17 92/50 L Pulse Ox 04/17/20 17:23 98 04/17/20 16:00 100 04/17/20 14:12 100 04/17/20 13:11 100 04/17/20 12:11 95 04/17/20 11:11 100 04/17/20 10:11 97 04/17/20 09:11 97 04/17/20 08:11 98 04/17/20 07:11 100 Laboratory Results Short CBC 04/17/20 Range/Units 06:35 WBC 32.59 H* (4.8-10.8) K/uL Hgb 9.2 L (12.0-16.0) g/dL Hct 28.8 L (37-47) % Plt Count 180 (130-400) K/uL BMP 04/17/20 06:35 Sodium 142 Potassium 3.7 Chloride 112 H Carbon Dioxide 22 BUN 18 Creatinine 0.53 L Glucose 103 H Calcium 7.9 L Cardiac Enzymes 04/17/20 04/17/20 Range/Units 00:15 06:35 Troponin I < 0.015 < 0.015 (0-0.045) ng/ml Medications Administered Current Inpatient Medications Acetaminophen (Acetaminophen 325 Mg Tab) 650 mg PO Q4H PRN PRN Reason: Pain or Fever Stop: 05/15/20 15:38 Amiodarone HCl (Amiodarone 200 Mg Tab) 200 mg PO QID VICTOR M Stop: 05/16/20 20:59 Last Admin: 04/17/20 16:28 Dose: 200 mg Documented by: Nystatin 30 ml/ Dexamethasone 3.75 mg/ Diphenhydramine HCl 300 mg/ Sucrose 45 ml/Microcrystalline Cellulose 45 ml/ BARCODE IDENTIFIER 1 ea 0 ml PO Q4H PRN PRN Reason: Mild Pain Stop: 05/15/20 16:45 Docusate Sodium (Docusate Sodium 100 Mg Cap) 100 mg PO BID PRN PRN Reason: Constipation Stop: 05/15/20 15:38 Enoxaparin Sodium (Enoxaparin Inj 60 Mg/0.6 Ml Syr) 60 mg SQ Q12 [facility] M Stop: 05/17/20 10:59 Last Admin: 04/17/20 10:52 Dose: 60 mg Documented by: Heparin Sodium (Porcine) (Heparin 100 Unit/Ml 5ml Flush) 5 ml FLUSH PRN PRN PRN Reason: Flush Stop: 05/15/20 22:08 Cefepime HCl 2,000 mg/ Syringe 20 mls @ 5 mls/min IV Q8 VICTOR M; Protocol Stop: 04/24/20 14:59 Last Admin: 04/17/20 12:49 Dose: 5 mls/min Documented by: Influenza Virus Vaccine (Influenza Vaccine High Dose 65+ 0.5 Ml Syr) 0.5 ml IM .ONCE ONE Stop: 04/29/20 09:01 Metoprolol Tartrate (Metoprolol Tartrate 25 Mg Tab) 12.5 mg PO BID VICTOR M Stop: 05/17/20 08:59 Last Admin: 04/17/20 08:14 Dose: 12.5 mg Documented by: Miscellaneous Information (Cefepime Consult Active) 1 ea N/A UD PRN PRN Reason: Consult Stop: 05/16/20 14:42 Pantoprazole Sodium (Pantoprazole 40 Mg Tab) 40 mg PO DAILY VICTOR M Stop: 05/17/20 10:59 Last Admin: 04/17/20 10:52 Dose: 40 mg Documented by: Polyethylene Glycol (Polyethylene (Miralax) 17 Gm Pack) 17 gm PO BID VICTOR M Stop: 05/15/20 20:59 Last Admin: 04/17/20 08:15 Dose: Not Given Documented by: Sennosides (Senna 8.6 Mg Tab) 8.6 mg PO DAILY VI[facility] M Stop: 05/16/20 08:59 Last Admin: 04/17/20 08:15 Dose: Not Given Documented by: (1) Hypertension Hypertension type: essential hypertension Qualified Code(s): I10 - Essential (primary) hypertension
[2020-04-18] MEDS: CEFEPIME 2,000 MG in SYRINGE 0 ML IV SCH (05:29)
[2020-04-18 06:43] LABS: Hematocrit (blood only) 27.8 % (37-47); Hemoglobin 8.8 g/dL (12.0-16.0); Mean Corpuscular Hgb Conc 31.7 g/dL (32-36); Mean Corpuscular Volume 85.3 fL (80-100); Mean Platelet Volume 9.9 fL (7.4-10.4); Nucleated RBC # (auto) 0.25 K/uL (0-0); Nucleated RBC % (auto) 0.7 %; Platelet Count 247 K/uL (130-400); RDW Coefficient of Variation 28.5 % (11.5-14.5); RDW Standard Deviation 83.5 fL (36.4-46.3); Red Blood Count 3.26 M/uL (4.2-5.4); White Blood Count 34.58 K/uL (4.8-10.8)
[2020-04-18 07:08] LABS: BUN Creatinine Ratio 30.6 (10-20); Calcium 8.4 mg/dl (8.5-10.1); Creatinine Clr Calc Pharmacy 61.6 ml/min; Est GFR (African American) 96.5; Est GFR (Non-African American) 83.3; Magnesium 2.3 mg/dl (1.8-2.4); Potassium 4.2 mmol/L (3.5-5.1)
[2020-04-18 07:10] LABS: Anisocytosis Present; Basophils # (auto) 0.06 K/uL (0-0.2); Basophils % (auto) 0.2 %; Echinocytes 1+; Eosinophils # (auto) 0.08 K/uL (0-0.5); Eosinophils % (auto) 0.2 %; Immature Granulocytes % (auto) 2.9 %; Lymphocytes # (auto) 2.17 K/uL (1.2-3.4); Lymphocytes % (auto) 6.3 %; Monocytes % (auto) 6.7 %; Neutrophils # (auto) 28.97 K/uL (1.4-6.5); Neutrophils % (auto) 83.7 %; Poikilocytosis Present; Polychromasia 1+; Toxic Granulation 1+
[2020-04-18] MEDS: ENOXAPARIN INJ 60 MG/0.6 ML SYR SQ SCH ×2 (09:53→20:40)
[2020-04-18] MEDS: METOPROLOL TARTRATE 25 MG TAB PO SCH ×2 (09:56→20:38)
[2020-04-18] MEDS: AMIODARONE 200 MG TAB PO SCH ×4 (09:56→20:39)
[2020-04-18] MEDS: SENNA 8.6 MG TAB PO SCH (09:57)
[2020-04-18] MEDS: PANTOprazole 40 MG TAB PO SCH (09:57)
[2020-04-18] MEDS: POLYETHYLENE (MIRALAX) 17 GM PACK PO SCH ×2 (09:57→20:39)
--- NOTE | 2020-04-18 11:33 | Hospitalist Progress Note ---
Date of Service April 18, 2020 Assessment & Plan (1) Bilateral pulmonary embolism: Continues on full dose Lovenox twice daily and will transition to once daily dosing through the anticoagulation clinic after discharge. Continues to report no hematochezia after transition to Lovenox. Mildly hypotensive with stable heart rate and stable blood pressure improved after starting amiodarone. She is remains in atrial fibrillation. Low-dose Metoprolol was also started back on 04/17. (2) Left leg DVT: denies pain or swelling in leg. Offered TEDs in this leg. Cont Lovenox. (3) Subclavian artery disease: Subclavian steal confirmed by carotid doppler on the left. Take all BP in the right for accuracy. Would discuss with vascular specialist nonurgently as outpatient. (4) Leukocytosis: -WBC 34K -likely due to recent Ziextenzo injection on 04/03 -treating pneumonia with Cefepime and with clinical improvement and no fever will transition her to oral Amoxicillin and doxycycline to complete the course. (5) Pneumonia: Pulmonary infarction vs small area of pneumonia. Pt has some increased mucus production but otherwise no respiratory complaints and is afebrile. Amox/Doxy as above. Stop cefepime. (6) Colon cancer metastasized to liver: -Follows with Dr. Torres -Currently receiving chemotherapy with Avastin and FOLFOX, last dose on 03/31 -will update Dr. Torres that she is here (7) Paroxysmal atrial fibrillation: Currently in afib with rate controlled. Cont amio load and low dose BB. AC with Lovenox. Noted h/o GI bleeding on Eliquis in the past. Did not come in on AC. (8) Hypertension: Holding lis/HCTZ for now as she is having relatively low blood pressures. (9) Anemia: Likely related to chemotherapy. No overt need to transfuse. Cont to trend H/H (10) DVT prophylaxis: Lovenox Full Code Dispo-cont to monitor in PCU pending disposition by cardiology. Ellie Manrique DO [facility] Hospitalist Admission and Anticipated Discharge Date Admission Date: April 15, 2020 Subjective Patient is doing well this morning. She denies pain or shortness of breath. She does report some mild nonproductive coughing. She denies any fevers or chills overnight on exam her right lower lobe area where the pulmonary infarction/pulmonary infection is located has cleared up more. She is starting to eat more today but her is concerned about persistent apathy to food and is asking about Marinol. He was deferred to the oncologist. He also asked about DME at home such as a hospital bed and possibly a wheelchair. I engage case management with that. The patient otherwise has no issues. Review of telemetry shows she was in atrial fibrillation overnight with a controlled rate. Review of Systems Review of Systems: All systems reviewed & are unremarkable except as noted in Subjective Physical Exam Physical Exam: CONSTITUTIONAL: WNWD, vitals as above, generally well- appearing EYES: normal conjunctivae, no scleral icterus ENT: external ear and nose normal, MMM RESPIRATORY: crackles heard at left base that have improved by 50%, otherwise clear without wheezes or rales, normal respiratory effort CARDIOVASCULAR: reg rate and irregular rhythm, S1 and 2 heard without murmurs, gallops or rubs, no JVD GASTROINTESTINAL: soft, nontender, nondistended, no guarding. MUSCULOSKELETAL: strength 5/5 throughout, head is normocephalic and atraumatic SKIN: warm and dry NEUROLOGIC: No facial palsy, no dysarthria. CN 2-12 grossly intact, normal cognition, normal speech, no tremor PSYCHIATRIC: alert cooperative and oriented to person, place and time. Results & Data Results & Data ([facility]) Vital Signs (Past 12 Hours) Vital Signs Temp Pulse Pulse Resp BP BP Pulse Ox 04/18/20 08:00 36.8 C 89 18 95/59 L 04/18/20 03:34 120 H 20 115/48 L 98 04/18/20 00:10 36.7 C 04/18/20 00:00 105 H 22 108/54 L 98 Laboratory Results Short CBC 04/18/20 Range/Units 06:25 WBC 34.58 H* (4.8-10.8) K/uL Hgb 8.8 L (12.0-16.0) g/dL Hct 27.8 L (37-47) % Plt Count 247 (130-400) K/uL BMP 04/18/20 06:25 Sodium 140 Potassium 4.2 Chloride 111 H Carbon Dioxide 22 BUN 20 H Creatinine 0.65 Glucose 100 H Calcium 8.4 L Medications Administered Current Inpatient Medications Acetaminophen (Acetaminophen 325 Mg Tab) 650 mg PO Q4H PRN PRN Reason: Pain or Fever Stop: 05/15/20 15:38 Amiodarone HCl (Amiodarone 200 Mg Tab) 200 mg PO QID [facility] Stop: 05/16/20 20:59 Last Admin: 04/18/20 09:56 Dose: 200 mg Documented by: Nystatin 30 ml/ Dexamethasone 3.75 mg/ Diphenhydramine HCl 300 mg/ Sucrose 45 ml/Microcrystalline Cellulose 45 ml/ BARCODE IDENTIFIER 1 ea 0 ml PO Q4H PRN PRN Reason: Mild Pain Stop: 05/15/20 16:45 Docusate Sodium (Docusate Sodium 100 Mg Cap) 100 mg PO BID PRN PRN Reason: Constipation Stop: 05/15/20 15:38 Enoxaparin Sodium (Enoxaparin Inj 60 Mg/0.6 Ml Syr) 60 mg SQ Q12 VICTOR M Stop: 05/17/20 10:59 Last Admin: 04/18/20 09:53 Dose: 60 mg Documented by: Heparin Sodium (Porcine) (Heparin 100 Unit/Ml 5ml Flush) 5 ml FLUSH PRN PRN PRN Reason: Flush Stop: 05/15/20 22:08 Cefepime HCl 2,000 mg/ Syringe 20 mls @ 5 mls/min IV Q8 VICTOR M; Protocol Stop: 04/24/20 14:59 Last Admin: 04/18/20 05:29 Dose: 5 mls/min Documented by: Influenza Virus Vaccine (Influenza Vaccine High Dose 65+ 0.5 Ml Syr) 0.5 ml IM .ONCE ONE Stop: 04/29/20 09:01 Metoprolol Tartrate (Metoprolol Tartrate 25 Mg Tab) 12.5 mg PO BID VICTOR M Stop: 05/17/20 08:59 Last Admin: 04/18/20 09:56 Dose: 12.5 mg Documented by: Miscellaneous Information (Cefepime Consult Active) 1 ea N/A UD PRN PRN Reason: Consult Stop: 05/16/20 14:42 Pantoprazole Sodium (Pantoprazole 40 Mg Tab) 40 mg PO DAILY [facility] Stop: 05/17/20 10:59 Last Admin: 04/18/20 09:57 Dose: 40 mg Documented by: Polyethylene Glycol (Polyethylene (Miralax) 17 Gm Pack) 17 gm PO BID VICTOR M Stop: 05/15/20 20:59 Last Admin: 09/26/20 09:57 Dose: Not Given Documented by: Sennosides (Senna 8.6 Mg Tab) 8.6 mg PO DAILY VICTOR M Stop: 05/16/20 08:59 Last Admin: 04/18/20 09:57 Dose: Not Given Documented by: (1) Hypertension Hypertension type: essential hypertension Qualified Code(s): I10 - Essential (primary) hypertension
--- NOTE | 2020-04-18 13:14 | Cardiology Progress Note ---
Date of Service April 18, 2020 Assessment & Plan (1) Atrial fibrillation with rapid ventricular response: Patient is an 79-year-old female with past history of paroxysmal atrial fibrillation currently in atrial fibrillation with rapid response in the setting of acute stressors of bilateral pulmonary emboli. Patient carries an underlying complex history of metastatic rectal carcinoma and past difficulties with intermittent GI bleeding. Currently not on anticoagulation Patient denies acute complaints and not hypoxic however blood pressure soft with elevated ventricular response rate. Echocardiogram does not suggest acute right ventricular pressure overload and overall LV systolic function grossly normal on initial evaluation Anticoagulation initiated with Lovenox, to follow with outpatient MTM clinic upon discharge. Continue rate control with current doses of amiodarone and metoprolol. (2) Pulmonary emboli: (3) Left leg DVT: (4) Paroxysmal atrial fibrillation: (5) Colon cancer metastasized to liver: Admission and Anticipated Discharge Date Admission Date: April 15, 2020 Subjective Patient seen and examined, chart reviewed. Still some shortness of breath today but denies any chest pain or palpitations. Tolerating medications well. Telemetry reviewed: Rates improved to the 80s and 90s while she remains in atrial fibrillation. Review of Systems Review of Systems: All systems reviewed & are unremarkable except as noted in HPI & below Physical Exam Physical Exam: General: Awake, alert and oriented x 3. No acute distress. Cachectic HEENT: Normocephalic, atraumatic. Pupils equal, round and reactive to light and accommodation. Extraocular muscles are intact. Anicteric sclera. Moist mucous membranes. Neck: No JVD. No bruit. Cardiovascular: irregularly irregular, unable to appreciate murmur, rub or gallop. Pulmonary: Clear to auscultation bilaterally. No rales, rhonchi, or wheezing. Abdomen: Bowel sounds x 4, soft. No rebound, guarding or tenderness. No organomegaly. Extremities: No clubbing, cyanosis or edema. +2 pedal pulses bilaterally. Skin: Warm and dry. Results & Data ([facility]) Vital Signs (Past 12 Hours) Vital Signs Temp Pulse Pulse Resp BP BP Pulse Ox 04/18/20 12:03 36.7 C 78 22 110/43 L 99 04/18/20 08:00 36.8 C 89 18 95/59 L 04/18/20 03:34 120 H 20 115/48 L 98 (1) Pulmonary emboli Acute cor pulmonale presence: unspecified Chronicity: acute Pulmonary embolism type: other Qualified Code(s): I26.99 - Other pulmonary embolism without acute cor pulmonale
[2020-04-18] MEDS: AMOXICILLIN 500 MG CAP PO SCH ×2 (14:17→20:39)
[2020-04-18] MEDS: DOXYCYCLINE HYCLATE 100 MG CAP PO SCH ×2 (14:17→20:37)
[2020-04-19 07:02] LABS: Hematocrit (blood only) 29.3 % (37-47); Hemoglobin 9.1 g/dL (12.0-16.0); Mean Corpuscular Hemoglobin 26.9 pg (25-34); Mean Corpuscular Hgb Conc 31.1 g/dL (32-36); Mean Corpuscular Volume 86.7 fL (80-100); Mean Platelet Volume 9.9 fL (7.4-10.4); Nucleated RBC # (auto) 0.26 K/uL (0-0); Nucleated RBC % (auto) 0.7 %; Platelet Count 294 K/uL (130-400); RDW Coefficient of Variation 29.3 % (11.5-14.5); RDW Standard Deviation 87.7 fL (36.4-46.3); Red Blood Count 3.38 M/uL (4.2-5.4); White Blood Count 36.61 K/uL (4.8-10.8)
[2020-04-19 07:23] LABS: BUN Creatinine Ratio 25.9 (10-20); Calcium 8.3 mg/dl (8.5-10.1); Creatinine Clr Calc Pharmacy 52.5 ml/min; Est GFR (African American) 85.3; Est GFR (Non-African American) 73.6; Potassium 4.6 mmol/L (3.5-5.1)
[2020-04-19 07:24] LABS: Anisocytosis Present; Basophils # (auto) 0.07 K/uL (0-0.2); Basophils % (auto) 0.2 %; Echinocytes 1+; Eosinophils # (auto) 0.08 K/uL (0-0.5); Eosinophils % (auto) 0.2 %; Immature Granulocytes # (auto) 1.43 K/uL (0.00-0.02); Immature Granulocytes % (auto) 3.9 %; Lymphocytes # (auto) 2.43 K/uL (1.2-3.4); Lymphocytes % (auto) 6.6 %; Monocytes # (auto) 2.65 K/uL (0.11-0.59); Monocytes % (auto) 7.2 %; Neutrophils # (auto) 29.95 K/uL (1.4-6.5); Neutrophils % (auto) 81.9 %; Ovalocytes 1+; Poikilocytosis Present; Polychromasia 1+
--- NOTE | 2020-04-19 07:38 | Electrocardiogram Report ---
Test Reason : Blood Pressure : / mmHG Vent. Rate : 093 BPM Atrial Rate : 000 BPM P-R Int : 000 ms QRS Dur : 072 ms QT Int : 322 ms P-R-T Axes : 000 -16 026 degrees QTc Int : 400 ms Atrial fibrillation Low voltage QRS Nonspecific T wave abnormality Abnormal ECG When compared with ECG of 15-APR-2020 13:10, (unconfirmed) Left anterior fascicular block is no longer Present Criteria for Septal infarct are no longer Present Confirmed by Johnnie Amaya ([id number]) on 04/19/2020 7:38:24 AM Referred By: REFERRED SELF Confirmed By:Johnnie Amaya
[2020-04-19] MEDS: AMOXICILLIN 500 MG CAP PO SCH ×2 (08:48→14:47)
[2020-04-19] MEDS: AMIODARONE 200 MG TAB PO SCH ×4 (08:49→20:19)
[2020-04-19] MEDS: ENOXAPARIN INJ 60 MG/0.6 ML SYR SQ SCH ×2 (08:49→20:21)
[2020-04-19] MEDS: METOPROLOL TARTRATE 25 MG TAB PO SCH ×2 (08:50→20:20)
[2020-04-19] MEDS: PANTOprazole 40 MG TAB PO SCH (08:50)
[2020-04-19] MEDS: SENNA 8.6 MG TAB PO SCH (08:50)
[2020-04-19] MEDS: DOXYCYCLINE HYCLATE 100 MG CAP PO SCH (10:07)
[2020-04-19] MEDS: POLYETHYLENE (MIRALAX) 17 GM PACK PO SCH ×2 (10:07→20:21)
--- NOTE | 2020-04-19 13:31 | Cardiology Progress Note ---
Date of Service April 19, 2020 Assessment & Plan (1) Atrial fibrillation with rapid ventricular response: Patient is an 79-year-old female with past history of paroxysmal atrial fibrillation currently in atrial fibrillation with rapid response in the setting of acute stressors of bilateral pulmonary emboli. Patient carries an underlying complex history of metastatic rectal carcinoma and past difficulties with intermittent GI bleeding. Currently not on anticoagulation Patient denies acute complaints and not hypoxic however blood pressure soft with elevated ventricular response rate. Echocardiogram does not suggest acute right ventricular pressure overload and overall LV systolic function grossly normal on initial evaluation Anticoagulation initiated with Lovenox. Improved clinically today. Would allow some tachycardia given the significant pulmonary emboli and hypoxia. We will continue current doses of amiodarone and metoprolol. May also consider addition of Cardizem if necessary for further blood pressure control. (2) Pulmonary emboli: (3) Left leg DVT: (4) Paroxysmal atrial fibrillation: (5) Colon cancer metastasized to liver: Admission and Anticipated Discharge Date Admission Date: April 15, 2020 Subjective Patient seen and examined, chart reviewed. at bedside. Patient states that she is feeling well except for having difficulty swallowing pills. Denies chest pain, shortness of breath or palpitations. States that she still does not have much of an appetite. Telemetry reviewed: Atrial fibrillation with rates in the 90s to 110's Review of Systems Review of Systems: All systems reviewed & are unremarkable except as noted in HPI & below Physical Exam Physical Exam: General: Awake, alert and oriented x 3. No acute distress. Cachectic HEENT: Normocephalic, atraumatic. Pupils equal, round and reactive to light and accommodation. Extraocular muscles are intact. Anicteric sclera. Moist mucous membranes. Neck: No JVD. No bruit. Cardiovascular: irregularly irregular, unable to appreciate murmur, rub or gallop. Pulmonary: Clear to auscultation bilaterally. No rales, rhonchi, or wheezing. Abdomen: Bowel sounds x 4, soft. No rebound, guarding or tenderness. No organomegaly. Extremities: No clubbing, cyanosis or edema. +2 pedal pulses bilaterally. Skin: Warm and dry. Results & Data ([facility]) Vital Signs (Past 12 Hours) Vital Signs Temp Pulse Resp BP Pulse Ox 04/19/20 11:23 36.5 C 91 H 25 H 113/56 L 98 04/19/20 07:08 36.6 C 92 H 20 116/72 100 04/19/20 03:01 36.3 C L 97 H 18 108/58 L 100 (1) Pulmonary emboli Acute cor pulmonale presence: unspecified Chronicity: acute Pulmonary embolism type: other Qualified Code(s): I26.99 - Other pulmonary embolism without acute cor pulmonale
--- NOTE | 2020-04-19 15:09 | Hospitalist Progress Note ---
Date of Service April 19, 2020 Assessment & Plan (1) Bilateral pulmonary embolism: Continues on full dose Lovenox twice daily and will transition to once daily dosing through the anticoagulation clinic after discharge. Continues to report no hematochezia after transition to Lovenox. Mildly hypotensive with stable heart rate and stable blood pressure improved after starting amiodarone. She is remains in atrial fibrillation. Low-dose Metoprolol was also started back on 04/17. (2) Left leg DVT: denies pain or swelling in leg. Offered TEDs in this leg. Cont Lovenox. (3) Subclavian artery disease: Subclavian steal confirmed by carotid doppler on the left. Take all BP in the right for accuracy. Would discuss with vascular specialist nonurgently as outpatient. (4) Leukocytosis: -WBC 36K and rising. -likely due to recent Ziextenzo injection on 04/03 -treating pneumonia with Cefepime and with clinical improvement and no fever will transition her to oral Amoxicillin and doxycycline to complete the course. (5) Pneumonia: Pulmonary infarction vs small area of pneumonia. Remains afebrile and is improved. Amox/Doxy as above. (6) Colon cancer metastasized to liver: -Follows with Dr. Torres -Currently receiving chemotherapy with Avastin and FOLFOX, last dose on 03/31 -will update Dr. Torres that she is here -Hospital bed ordered, which needs to be raised above 30 degrees, and is semi- electric for frequent changes in position. (7) Paroxysmal atrial fibrillation: Currently in afib with rate controlled. Cont amio load and low dose BB. AC with Lovenox. Noted h/o GI bleeding on Eliquis in the past. Did not come in on AC. (8) Hypertension: Holding lis/HCTZ for now as she is having relatively low blood pressures. (9) Anemia: Likely related to chemotherapy. No overt need to transfuse. Cont to trend H/H (10) DVT prophylaxis: Lovenox Full Code Dispo-cont to monitor in PCU pending disposition by cardiology. Ellie Manrique DO [facility] Hospitalist Admission and Anticipated Discharge Date Admission Date: April 15, 2020 Subjective doing well today having some problems swallowing abx pills switched to suspension denies pain BP improved to the 130s appetite has improved spoke with by phone Review of Systems Review of Systems: All systems reviewed & are unremarkable except as noted in Subjective Physical Exam Physical Exam: CONSTITUTIONAL: WNWD, vitals as above, generally well- appearing EYES: normal conjunctivae, no scleral icterus ENT: external ear and nose normal, MMM RESPIRATORY: CTA bilaterally, no crackles wheezes or rales, normal respiratory effort CARDIOVASCULAR: reg rate and irregular rhythm, S1 and 2 heard without murmurs, gallops or rubs, no JVD GASTROINTESTINAL: soft, nontender, nondistended, no guarding. MUSCULOSKELETAL: strength 5/5 throughout, head is normocephalic and atraumatic SKIN: warm and dry NEUROLOGIC: No facial palsy, no dysarthria. CN 2-12 grossly intact, normal cognition, normal speech, no tremor PSYCHIATRIC: alert cooperative and oriented to person, place and time. Results & Data Results & Data ([facility]) Vital Signs (Past 12 Hours) Vital Signs Temp Pulse Resp BP Pulse Ox 04/19/20 15:03 36.5 C 89 23 139/53 L 100 04/19/20 11:23 36.5 C 91 H 25 H 113/56 L 98 04/19/20 07:08 36.6 C 92 H 20 116/72 100 Laboratory Results Short CBC 04/19/20 Range/Units 06:38 WBC 36.61 H* (4.8-10.8) K/uL Hgb 9.1 L (12.0-16.0) g/dL Hct 29.3 L (37-47) % Plt Count 294 (130-400) K/uL BMP 04/19/20 06:38 Sodium 141 Potassium 4.6 Chloride 111 H Carbon Dioxide 24 BUN 20 H Creatinine 0.76 Glucose 98 Calcium 8.3 L Medications Administered Current Inpatient Medications Acetaminophen (Acetaminophen 325 Mg Tab) 650 mg PO Q4H PRN PRN Reason: Pain or Fever Stop: 05/15/20 15:38 Amiodarone HCl (Amiodarone 200 Mg Tab) 200 mg PO QID [facility] Stop: 05/16/20 20:59 Last Admin: 04/19/20 13:23 Dose: 200 mg Documented by: Amoxicillin (Amoxicillin 500 Mg Cap) 500 mg PO TID [facility] Stop: 04/25/20 13:59 Last Admin: 04/19/20 14:47 Dose: Not Given Documented by: Nystatin 30 ml/ Dexamethasone 3.75 mg/ Diphenhydramine HCl 300 mg/ Sucrose 45 ml/Microcrystalline Cellulose 45 ml/ BARCODE IDENTIFIER 1 ea 0 ml PO Q4H PRN PRN Reason: Mild Pain Stop: 05/15/20 16:45 Docusate Sodium (Docusate Sodium 100 Mg Cap) 100 mg PO BID PRN PRN Reason: Constipation Stop: 05/15/20 15:38 Doxycycline Hyclate (Doxycycline Hyclate 100 Mg Cap) 100 mg PO BID VICTOR M Stop: 04/25/20 13:59 Last Admin: 04/19/20 10:07 Dose: 100 mg Documented by: Enoxaparin Sodium (Enoxaparin Inj 60 Mg/0.6 Ml Syr) 60 mg SQ Q12 VICTOR M Stop: 05/17/20 10:59 Last Admin: 04/19/20 08:49 Dose: 60 mg Documented by: Heparin Sodium (Porcine) (Heparin 100 Unit/Ml 5ml Flush) 5 ml FLUSH PRN PRN PRN Reason: Flush Stop: 05/15/20 22:08 Influenza Virus Vaccine (Influenza Vaccine High Dose 65+ 0.5 Ml Syr) 0.5 ml IM .ONCE ONE Stop: 04/29/20 09:01 Metoprolol Tartrate (Metoprolol Tartrate 25 Mg Tab) 12.5 mg PO BID [facility] Stop: 05/17/20 08:59 Last Admin: 04/19/20 08:50 Dose: 12.5 mg Documented by: Pantoprazole Sodium (Pantoprazole 40 Mg Tab) 40 mg PO DAILY VICTOR M Stop: 05/17/20 10:59 Last Admin: 04/19/20 08:50 Dose: 40 mg Documented by: Polyethylene Glycol (Polyethylene (Miralax) 17 Gm Pack) 17 gm PO BID [facility] Stop: 05/15/20 20:59 Last Admin: 04/19/20 10:07 Dose: Not Given Documented by: Sennosides (Senna 8.6 Mg Tab) 8.6 mg PO DAILY [facility] Stop: 05/16/20 08:59 Last Admin: 04/19/20 08:50 Dose: 8.6 mg Documented by: (1) Hypertension Hypertension type: essential hypertension Qualified Code(s): I10 - Essential (primary) hypertension
[2020-04-19] MEDS: DOXYCYCLINE SUSP 25 MG/5 ML 60ML PO SCH (20:15)
[2020-04-19] MEDS: AMOXICILLIN SUSP 500 MG/10 ML UDP PO SCH (20:19)
[2020-04-20] MEDS: AMOXICILLIN SUSP 500 MG/10 ML UDP PO SCH ×2 (08:37→13:37)
[2020-04-20] MEDS: DOXYCYCLINE SUSP 25 MG/5 ML 60ML PO SCH (08:37)
[2020-04-20] MEDS: ENOXAPARIN INJ 60 MG/0.6 ML SYR SQ SCH (08:38)
[2020-04-20] MEDS: METOPROLOL TARTRATE 25 MG TAB PO SCH (08:38)
[2020-04-20] MEDS: AMIODARONE 200 MG TAB PO SCH ×2 (08:39→13:54)
[2020-04-20] MEDS: PANTOprazole 40 MG TAB PO SCH (08:39)
[2020-04-20] MEDS: SENNA 8.6 MG TAB PO SCH (08:40)
[2020-04-20 09:16] LABS: Hematocrit (blood only) 30.9 % (37-47); Hemoglobin 9.5 g/dL (12.0-16.0); Mean Corpuscular Hemoglobin 27.1 pg (25-34); Mean Corpuscular Hgb Conc 30.7 g/dL (32-36); Mean Platelet Volume 9.5 fL (7.4-10.4); Nucleated RBC # (auto) 0.28 K/uL (0-0); Nucleated RBC % (auto) 0.8 %; Platelet Count 369 K/uL (130-400); RDW Coefficient of Variation 29.7 % (11.5-14.5); RDW Standard Deviation 90.7 fL (36.4-46.3); Red Blood Count 3.51 M/uL (4.2-5.4)
[2020-04-20 09:17] LABS: Anisocytosis Present; Basophilic Stippling 1+; Basophils # (auto) 0.06 K/uL (0-0.2); Basophils % (auto) 0.2 %; Echinocytes 1+; Eosinophils # (auto) 0.03 K/uL (0-0.5); Eosinophils % (auto) 0.1 %; Immature Granulocytes # (auto) 1.32 K/uL (0.00-0.02); Immature Granulocytes % (auto) 3.6 %; Lymphocytes # (auto) 2.39 K/uL (1.2-3.4); Lymphocytes % (auto) 6.5 %; Monocytes # (auto) 2.94 K/uL (0.11-0.59); Neutrophils # (auto) 29.86 K/uL (1.4-6.5); Neutrophils % (auto) 81.6 %; Ovalocytes 1+; Polychromasia 1+
--- NOTE | 2020-04-20 11:46 | Cardiology Progress Note ---
Date of Service April 20, 2020 Assessment & Plan (1) Atrial fibrillation with rapid ventricular response: Patient is an 79-year-old female with past history of paroxysmal atrial fibrillation currently in atrial fibrillation with rapid response in the setting of acute stressors of bilateral pulmonary emboli. Patient carries an underlying complex history of metastatic rectal carcinoma and past difficulties with intermittent GI bleeding. Currently not on anticoagulation Patient denies acute complaints and not hypoxic however blood pressure soft with elevated ventricular response rate. Echocardiogram does not suggest acute right ventricular pressure overload and overall LV systolic function grossly normal on initial evaluation Anticoagulation initiated with Lovenox, to follow with outpatient [facility] clinic upon discharge. Given current clinical context would allow some permissive tachycardia to compensate for her significant pulmonary emboli. Okay to discharge home from a cardiac standpoint on current dose of metoprolol, would DC on amiodarone 200 mg p.o. twice daily Already scheduled to see Dr. Boykin on May 07, recommend keeping this appointment. (2) Pulmonary emboli: (3) Left leg DVT: (4) Paroxysmal atrial fibrillation: (5) Colon cancer metastasized to liver: Admission and Anticipated Discharge Date Admission Date: April 15, 2020 Subjective Patient seen and examined, chart reviewed. She states that she is feeling rather well today. Breathing seems to be well-controlled. Spoke with her daughter at the bedside and by phone Continues to deny palpitations. during visit today. Denies chest pain, palpitations, lightheadedness, dizziness or syncope. Telemetry reviewed: Atrial fibrillation with rates in the 80s to 110s Review of Systems Review of Systems: All systems reviewed & are unremarkable except as noted in HPI & below Physical Exam Physical Exam: General: Awake, alert and oriented x 3. No acute distress. Cachectic HEENT: Normocephalic, atraumatic. Pupils equal, round and reactive to light and accommodation. Extraocular muscles are intact. Anicteric sclera. Moist mucous membranes. Neck: No JVD. No bruit. Cardiovascular: irregularly irregular, unable to appreciate murmur, rub or gallop. Pulmonary: Clear to auscultation bilaterally. No rales, rhonchi, or wheezing. Abdomen: Bowel sounds x 4, soft. No rebound, guarding or tenderness. No organomegaly. Extremities: No clubbing, cyanosis or edema. +2 pedal pulses bilaterally. Skin: Warm and dry. Results & Data ([facility]) Vital Signs (Past 12 Hours) Vital Signs Temp Pulse Resp BP Pulse Ox 04/20/20 11:19 36.4 C L 87 23 108/51 L 100 04/20/20 07:21 36.3 C L 89 18 112/52 L 98 04/20/20 03:41 36.7 C 84 18 104/43 L 99 (1) Pulmonary emboli Acute cor pulmonale presence: unspecified Chronicity: acute Pulmonary embolism type: other Qualified Code(s): I26.99 - Other pulmonary embolism without acute cor pulmonale
--- NOTE | 2020-04-20 12:49 | Discharge Summary ---
Date of Service April 20, 2020 Admission HPI Per Admitting Provider 79 year old female with PMH colon cancer with mets to liver on chemo, paroxysmal atrial fibrillation not anticoagulated, HTN, and other problems listed below who was referred to the ED by outpatient oncologist for evaluation of bilateral pulmonary embolism. In summary, patient was admitted to [facility] 07/2019 for GI bleed in the setting of being on Eliquis. Patient underwent colonoscopy that showed a large mass in the rectosigmoid colon. Patient was transferred to [facility] for evaluation by colorectal surgery. While at [facility], patient did not have any invasive procedures however did undergo staging MRIs and was evaluated by colorectal surgery. Patient was discharged on therapeutic dose Lovenox in anticipation of possible surgery. Patient was evaluated by cardiology on 02/13 and was placed back on Eliquis 2.5 mg twice daily. On 02/19, patient developed a small amount of rectal bleeding and was instructed to hold her Eliquis for 3 days. It was subsequently resumed however had to be stopped again on 02/26 due to minor rectal bleeding. That time, patient was instructed to take aspirin 81 mg daily. Has had a port placed and started chemotherapy with Avastin and FOLFOX, last dose being on 03/31. She also has been receiving Ziextenzo injections, last dose on 04/03. Patient underwent routine CT chest and ABD/pelvis today. It showed acute bilateral pulmonary embolism involving the right pulmonary artery, right basilar trunk, and multiple segmental and subsegmental branches throughout the both lower lobes. There is also a new airspace opacification in the right lower lobe concerning for infarction. Patient was sent to the ED for further evaluation. Patient reports feeling generally weak with poor appetite. Reports she has lost a few pounds. She reports shortness of breath with minimal exertion. No chest pain. She has worsening lower extremity edema over the past few days. Denies lightheadedness, dizziness, diaphoresis, syncopal events. Reports diarrhea which is been ongoing since her diagnosis. No abdominal pain, nausea, vomiting. Denies any other recent illnesses, fevers, chills. No urinary symptoms. In the ED, patient has been intermittently tachycardic in the 120s. Was initially hypotensive at 83/40 however this improved after IVF. Patient reports heart rate has been running somewhat high and blood pressure has been running somewhat low at home. She is saturating well on room air. Labs show WBC 30 K, Hgb 9.9. BL LE venous Doppler shows Left leg profunda vein thrombus extending to the common femoral junction. Admission Exam Per Admitting Provider Constitutional: WD/WN, vitals as above Eyes: PERRL, conjunctivae normal, anicteric sclerae ENMT: external ear and nose normal, oropharynx normal Respiratory: normal respiratory effort, lungs clear to auscultation Cardiovascular: Rate/Rhythm: + tachycardic and + irregularly irregular Vessels: normal peripheral pulses Extremities: + edema (+2 pitting edema BLE) Gastrointestinal (Abdomen): normal bowel sounds, soft, nontender, no hepatosplenomegaly Musculoskeletal: no cyanosis or clubbing, extremities motor strength 5/5 Skin: no rashes, warm and dry Neurologic: PERRL, EOMI, accommodation nl, no face palsy, no dysarthria Psychiatric: A+Ox3, euthymic affect Principal Diagnosis Bilateral pulmonary embolism Left leg DVT Subclavian artery disease Leukocytosis Pneumonia Pulmonary infarction Colon cancer metastasized to liver Paroxysmal atrial fibrillation Hypertension Discharge Exam CONSTITUTIONAL: WNWD, vitals as above, generally well-appearing EYES: normal conjunctivae, no scleral icterus ENT: external ear and nose normal, MMM RESPIRATORY: CTA bilaterally, no crackles wheezes or rales, normal respiratory effort CARDIOVASCULAR: reg rate and irregular rhythm, S1 and 2 heard without murmurs, gallops or rubs, no JVD GASTROINTESTINAL: soft, nontender, nondistended, no guarding. MUSCULOSKELETAL: strength 5/5 throughout, head is normocephalic and atraumatic SKIN: warm and dry NEUROLOGIC: No facial palsy, no dysarthria. CN 2-12 grossly intact, normal cognition, normal speech, no tremor PSYCHIATRIC: alert cooperative and oriented to person, place and time. Discharge Data Allergies Allergy/AdvReac Type Severity Reaction Status Date / Time No Known Allergies Allergy Unverified 04/15/20 13:54 Consultations 04/15/20 13:42 ED Decision to Admit Stat 04/15/20 15:39 Consult Case Management - Discharge Planning Routine Consult Vascular Surgery Routine 04/16/20 12:58 Consult Cardiology Routine 04/16/20 17:45 Consult Phototypesetter Operator Stat Ordered Studies 04/15/20 12:59 US venous doppler LE BI Stat 04/15/20 15:58 US carotid doppler BI Routine Hospital Course (1) Bilateral pulmonary embolism: (2) Left leg DVT: (3) Subclavian artery disease: (4) Leukocytosis: (5) Pneumonia: (6) Colon cancer metastasized to liver: (7) Paroxysmal atrial fibrillation: (8) Hypertension: (9) Anemia: An 79-year-old female with known colon cancer with metastasis to the liver who is currently receiving chemotherapy presented to the ER with generalized weakness and poor appetite as well as shortness of breath with minimal exertion. Work-up revealed a bilateral PE and left leg DVT. She was placed in the PCU and put on a heparin drip. She was initially hypotensive with a blood pressure in 83/40 and a heart rate in the 120s but this improved after IV fluids. She was found to be in atrial fibrillation with RVR. She has a history of paroxysmal atrial fibrillation in the past but has been off anticoagulation se condary to GI bleeding in the setting of cancer. Overnight she remained relatively hypotensive with an elevated heart rate and the following morning she was given another bolus of IV fluids with some return of blood pressure to 100 systolic. However, her blood pressure then continue to fall and emergent cardioversion was considered. Cardiology and ICU were both consulted. Ultimately, as no rate control could be given because of her blood pressure, she was given a dose of digoxin to slow her rate which ultimately helped her pressure and she was continued on IV fluids in the ICU. No cardioversion was needed at this point and she continued to maintain relative hemodynamic stability overnight. She was loaded on amiodarone and sent back to the floor. She remained hemodynamically stable relative hypotension with a systolic blood pressure in the low 100s. Antihypertensives were held and her metoprolol was decreased on amiodarone. Her statin was also discontinued. She remained in the hospital another several days for monitoring to ensure stability. At time of discharge she was hemodynamically stable and afebrile and tolerating p.o. She was mentating and ambulating at baseline and was oxygenating well on room air. The chart reflects the addition of supplemental oxygen as oxygen is a pulmonary vasodilator, however her oxygen saturations were fine on room air without this. Close primary care follow-up was recommended. She also has a cardiology appointment to reassess the amiodarone and atrial fibrillation. Ultimately as discussed with her, the Lovenox will be needed indefinitely and she may work with the anticoagulation clinic to transition to once daily Lovenox injection. Other issues that were noted included a left subclavian steal syndrome. All blood pressures were taken in the right arm for consistency. When I discussed this with her is a retired physician, he already stated he knew about this. The patient was not having symptoms of dizziness, syncope, otic symptoms, pain in the arm, numbness or other issues in the arm. She appeared to be completely asymptomatic from this. We discussed the may opt to electively fix this as outpatient. He verbalized understanding. She was noted to have an increased white blood cell count in the mid 30s. I did notify Dr. Torres who had given her a G-CSF stimulator prior to admission as part of her chemo routine. She will follow-up closely with him this week. Additional imaging revealed evidence of a possible pulmonary infarction in the right lower lobe, however pneumonia cannot be ruled out. As her presentation on hospital day 2 reflected a possible developing sepsis with an elevated procalcitonin she was placed on empiric broad-spectrum antibiotics and ultimately treated with 7 days of anti biotics for a presumed right lower lobe pneumonia. She did undergo an echo while admitted revealing mild hypokinesis of the inferoposterior wall at the base with mild septal flattening and apical hypokinesis consistent with pulmonary embolus. Ejection fraction was 55 to 60%. Anterior mitral valve leaflet is mildly thickened with mild systolic bowing. There was moderate MR and moderate to severe TR. A dilated IVC with reduced collapsibility with staff indicated an elevated right atrial pressure of 15 mmHg. Right ventricular systolic pressure was elevated at 50 to 60 mmHg. The right ventricular systolic function was normal. There was no evidence of pericardial effusion. Total Time Total Time Spent Total Time Spent (In Minutes): 60 Total Time Includes: Examination of the Patient, Discharge Planning, Medication Reconciliation and Communication With Other Providers Discharge Plan Discharge Items Patient Disposition: Home - Self-Care Reason For Visit: PE,ABNORMAL CT, REF BY DOCTOR Discharge Diagnosis: Bilateral pulmonary embolism Left leg DVT Subclavian artery disease Leukocytosis Pneumonia Pulmonary infarction Colon cancer metastasized to liver Paroxysmal atrial fibrillation Hypertension Condition on Discharge: Good Activity: Resume your previous activity Non-emergency contact: Primary Care Provider Call non-emergency contact if: you have any medication questions, your symptoms worsen, your pain is not controlled, your pain is worsening, your pain is unusual for you, your pain is concerning for you and you have a fever Follow-up/Referrals: Shruthi Crowell DO [Primary Care Provider] - 04/28/20 11:50 am (Date & Time 04/28/2020 11:50 AM Provider Shruthi Crowell DO Department Internal Medicine [facility] You also have a [facility] appointment on 04/23/2020 at9:00 AM with JANINE Smalls. ) Diet: Regular Addtl Attending Provider Instructions: Please take all medications as instructed on discharge list below. It is recommended that you undergo a repeat chest x-ray in 4 weeks time to ensure complete resolution of pneumonia. This may be ordered by your primary care doctor. It is recommended you follow-up with your primary care doctor the time and date is listed above. This hospital follow-up appointment will be important to ensure you are receiving the appropriate anticoagulation and have been hooked into the [facility] appropriately. Also you have been put on new medications and this will be important to ensure you are not having any issues with that. It will also be important to check your blood pressure and heart rate. Please follow-up with your oncologist as soon as able, preferably in the next 1 to 2 weeks to discuss if your Chemotherapy session will be delayed. Recommend keeping a cardiology follow-up appointment with Dr. Boykin on May 07 with [facility]. This will be a follow-up for her atrial fibrillation and new medications. It was a pleasure taking care of you! Please call if you have any questions or problems. You can reach a [facility] hospitalist on duty at [facility] 24 hours a day by calling [phone]. Take care of yourself. Ellie Manrique DO [facility] Hospitalist Pending Studies at Discharge: No Stand-Alone Forms: My [facility] Medications and DC Order Prescriptions: New amoxicillin 250 mg/5 mL Suspension For Reconstitution 500 mg PO TID Qty: 90 RF: 0 enoxaparin 60 mg/0.6 mL Syringe 60 mg subcut Q12 5 Days Qty: 6 RF: 1 amiodarone 200 mg Tablet 200 mg PO BID Qty: 60 RF: 1 metoprolol tartrate 25 mg Tablet 12.5 mg PO BID Qty: 30 RF: 1 doxycycline hyclate 100 mg tablet 100 mg PO BID Qty: 6 RF: 0 Continued docusate sodium 100 mg capsule 100 mg PO BID PRN (Reason: Constipation) RF: 0 polyethylene glycol 3350 [Miralax] 17 gram Powder In Packet 17 g PO BID RF: 0 ondansetron HCl 8 mg tablet 8 mg PO Q8H PRN (Reason: Nausea) RF: 0 prochlorperazine maleate 10 mg tablet 10 mg PO Q6H PRN (Reason: Nausea) RF: 0 senna 8.6 mg Capsule 8.6 mg PO DAILY RF: 0 Magic Swizzle 15 ml PO QID PRN (Reason: Other) RF: 0 Discontinued atorvastatin 20 mg tablet 20 mg PO QAM RF: 0 lisinopril-hydrochlorothiazide 20-12.5 mg tablet 1 tab PO QAM RF: 0 metoprolol tartrate 25 mg tablet 25 mg PO BID Qty: 30 RF: 0 aspirin [Aspir-81] 81 mg Tablet,Delayed Release (Dr/Ec) 81 mg PO DAILY RF: 0 Discharge Orders: Discharge Order (Routine); Ordered 04/20/20 Ordered By: Ellie Manrique Admission Data Admit Date/Time: 04/15/20 14:10 Attending Provider: Ellie Manrique Admit Provider: Michael Shields Primary Care Provider: Shruthi Crowell Other Providers: Michael Shields ; Dustin Francisco ; Timoteo Andrade ; Jean Aldana Other Interventions: Discharge Summary Assessment (RN) Last Done: 04/20/20 13:20
[2020-04-29] MEDS ORDERED: INFLUENZA VACCINE HIGH DOSE 65+ 0.5 ML SYR IM ONE (09:00)
[2020-04-29] MEDS ORDERED: INFLUENZA ADMINISTRATION CHARGE ONE (09:00)
== END 2020-04-20 14:14 | disposition home or self-care (01) | DRG 175 ==
LOC: ED 12:37 → 2E 14:10 → SUATTDRO 14:10 → 2E 15:05 → 1E 04-16 14:30 → 2E 04-17 17:29

== ENCOUNTER 2020-05-06 15:07 | Inpatient (IN) ==
--- NOTE | 2020-05-06 16:02 | XRay Report ---
XR chest 1V portable CLINICAL HISTORY: Dyspnea COMPARISON STUDY: Chest CT January 30, 2020. Chest radiograph April 17, 2020 FINDINGS: Right sided [id number] remains in place. There is no pneumothorax. Small left pleural ef fusion is unchanged since prior exam. A moderate right pleural effusion has increased. Associated rig ht basilar opacity is noted. Interstitial thickening has developed. Cardiomediastinal silhouette is s table. Moderate cardiomegaly is unchanged. IMPRESSION: 1. Increase in size of a moderate right pleural effusion with associated right basilar opacity. Radio graphic follow up is recommended. No change in a small left pleural fusion. 2. Interstitial thickening consistent with pulmonary edema. ACT 112: Negative or not required by law. Electronically signed by: Garrett Quiles M.D. 05/06/2020 4:00 PM
[2020-05-06 16:09] LABS: Hematocrit (blood only) 34.1 % (37-47); Hemoglobin 10.5 g/dL (12.0-16.0); Immature Granulocytes # (auto) 0.07 K/uL (0.00-0.02); Immature Granulocytes % (auto) 0.3 %; Lymphocytes # (auto) 0.82 K/uL (1.2-3.4); Mean Corpuscular Hemoglobin 27.6 pg (25-34); Mean Corpuscular Hgb Conc 30.8 g/dL (32-36); Mean Corpuscular Volume 89.7 fL (80-100); Mean Platelet Volume 10.5 fL (7.4-10.4); Monocytes # (auto) 0.34 K/uL (0.11-0.59); Monocytes % (auto) 1.7 %; Nucleated RBC # (auto) 0.07 K/uL (0-0); Nucleated RBC % (auto) 0.3 %; Platelet Count 243 K/uL (130-400); RDW Coefficient of Variation 30.3 % (11.5-14.5); RDW Standard Deviation 94.8 fL (36.4-46.3); White Blood Count 20.33 K/uL (4.8-10.8)
--- NOTE | 2020-05-06 16:14 | Emergency Department Note ---
Impression & Plan Hypoxic, Paroxysmal atrial fibrillation, Leukocytosis, Breath shortness, Pleural effusion ED Provider Note NAME: JETHRO MCGEE AGE: 79 SEX: F : 1940 ARRIVES VIA: Ambulance INFORMANT: Patient ED PROVIDER(S): Josue Batista DO CHIEF COMPLAINT: Shortness of breath HPI: Patient is an 79-year-old female with a past medical history of metastatic colon cancer PEs on Lovenox 60 mg twice daily that presents the ER for shortness of breath which is been present for the past 24 hours. Is worse with exertion. She is been having swelling in the leg since this past February when she started chemotherapy. She is received a total of 3 doses. She has not had any taste or smell since the chemotherapy started. She denies any chest pain or belly pain. No nausea vomiting or diarrhea. No dysuria urgency or frequency. No other exacerbating or remitting factors at this time. ROS: See above HPI for pertinent positives & negatives. A total of 10 systems reviewed and were otherwise negative. PAST MEDICAL HISTORY:See Below PAST SURGICAL HISTORY:See Below FAMILY HISTORY:See Below SOCIAL HISTORY:See Below HOME MEDICATIONS:See Below ALLERGIES:See Below VITALS:See Below PHYSICAL EXAMINATION: GENERAL: Sitting up in bed, alert, chronically ill-appearing, disheveled, no acute distress on 2 L nasal cannula EYE EXAM: normal conjunctiva. PERRL and EOM's grossly intact. OROPHARYNX: no exudate, no erythema, lips, buccal mucosa, and tongue normal and mucous membranes are moist NECK: supple, no nuchal rigidity, no adenopathy, non-tender LUNGS: Clear to auscultation. Normal chest wall mechanics HEART: no murmurs, S1 normal and S2 normal ABDOMEN: abdomen soft, non-tender, normo-active bowel sounds, no masses, no rebound or guarding. BACK: Back is symmetrical on inspection and there is no deformity, no midline tenderness, no CVA tenderness. SKIN: no rashes and no bruising UPPER EXTREMITIES: upper extremities are grossly normal. LOWER EXTREMITIES: Pitting edema bilateral lower extremity NEURO EXAM: Normal sensorium, cranial nerves II-XII grossly intact, normal speech, no gross weakness of arms, no gross weakness of legs. MEDICAL DECISION MAKING: Patient is an 79-year-old female who presents the ER for shortness of breath. Patient has stage IV colorectal cancer. Recently diagnosed with bilateral PEs on Lovenox and has not missed any doses. Chest x-ray shows a large right pleural effusion which appears to be worsening from previous. EKG shows new T wave inversions in V4 through V6. IV was established blood work was obtained. Labs show a leukocytosis of 20,000 down from 30. Hemoglobin at 10.5. INR was unremarkable. BMP with slightly elevated chloride. Magnesium was elevated 2.5. LFTs bilirubin was unremarkable. Troponin was negative with symptoms present for greater than 8 hours. proBNP was elevated. TSH was unremarkable. Procalcitonin was negative. Held on antibiotics as I do not believe that this is infectious. Patient and were updated bedside. Discussed with hospitalist and was evaluated for further evaluation. Patient did remain on 2 L nasal cannula throughout the whole ER stay as she was hypoxic in the mid 80s without oxygen. On oxygen was 94 to 95%. Triage Nursing notes reviewed. Prior medical records reviewed Vital Signs: reviewed and remarkable for hypoxia, tachycardia Differential diagnosis: Differential diagnoses includes but is not limited to pneumonia, bronchitis, COPD/Asthma exacerbation, pneumothorax, pulmonary embolism, congestive heart failure, acute coronary syndrome ER treatment provided: See below Diagnostics interpreted by me: ECG: A. fib rate of 96 Normal axis No PVCs TWI in the inferior leads TWI in the lateral leads T wave inversions V4 through V6 are new compared to April 17, 2020 Cardiac Monitoring: An order was placed for continuous cardiac monitoring. The monitor shows a rate of 80 with sinus rhythm. Laboratory studies: As stated above and show below. Imaging studies: Portable AP upright 1 view the chest shows large right pleural effusion worsen from previous x-ray Consultation(s): Discussed with hospitalist for further evaluation and patient was evaluated by Dr. Huber Silveira ED COURSE: Procedures: none Critical Care: I have personally spent 31 minutes of critical care time in the direct management of this patient. This includes bedside care, interpretation of diagnostic studies, and testing, discussion with consultants, patient, and family members, and other required patient management activities. This 31 minutes is in excess of all separately billable procedures. Past Med/Surg History Medical History Arterial hypotension Chronic anticoagulation Colon cancer metastasized to liver HLD (hyperlipidemia) Hypertension Paroxysmal atrial fibrillation Surgical History History of dilation and curettage Family History Father Heart disease Mother Heart disease Social History Smoking Status: Former smoker Tobacco Type: Cigarettes Second Hand Exposure: No; Do You Dip or Chew Tobacco: No; Tobacco Cessation Education Requested by Patient: No Hx Alcohol Use: Yes Alcohol type: other Hx Substance Use: No Preferred Language: Czech Communication Ability: Effective Floor Cleaner Required: No Beliefs That Will Affect Care: None marital status: Current Living Situation: Spouse How many Children do You have: 6 Other Information That Helps Us Care for You: No Feels Safe at Home: Yes Safety Concerns: Feels Safe At This Time Assistive Devices: Walker Allergies Allergies Allergy/AdvReac Type Severity Reaction Status Date / Time No Known Allergies Allergy Unverified 04/15/20 13:54 Home Meds Home Medications Medication Instructions Recorded Confirmed Magic Swizzle 15 ml PO QID PRN 04/15/20 05/06/20 docusate sodium 100 mg PO BID PRN 04/15/20 05/06/20 ondansetron HCl 8 mg PO Q8H PRN 04/15/20 05/06/20 polyethylene glycol 3350 [Miralax] 17 g PO BID 04/15/20 05/06/20 prochlorperazine maleate 10 mg PO Q6H PRN 04/15/20 05/06/20 senna 8.6 mg PO DAILY 04/15/20 05/06/20 dronabinol [Marinol] 2.5 mg PO BID 05/06/20 05/06/20 Previous Rx's Medication Instructions Recorded amiodarone 200 mg PO BID #60 tab 04/20/20 enoxaparin 60 mg SUBCUT Q12 5 Days #6 ml 04/20/20 metoprolol tartrate 12.5 mg PO BID #30 tab 04/20/20 Results & Data (ED) Vital Signs Vital Signs - 24 hr 05/06/20 15:10 05/06/20 15:22 05/06/20 15:24 Temperature 36.4 C Temperature Source Oral Pulse Rate 88 96 H Pulse Rate from SpO2 Sensor 98 H Pulse Rhythm Irregular Pulse Strength Normal Respiratory Rate 24 22 Respiratory Effort / Characteristics Non-Labored Non-Labored Respiratory Depth Shallow Shallow Respiratory Pattern Regular Blood Pressure 144/64 H 144/64 H Blood Pressure Mean 90 102 Blood Pressure Position Sitting Pulse Oximetry 87 L 99 Oxygen Delivery Method Room Air Nasal Cannula Oxygen Flow Rate 2 Sepsis Recent Fever Within 48 Hours No Sepsis New/Unexplained Change in Mental Status No Sepsis Action Taken by Nursing No Action Required 05/06/20 15:44 05/06/20 15:50 05/06/20 16:00 Temperature Temperature Source Pulse Rate 108 H 91 H 97 H Pulse Rate from SpO2 Sensor 109 H 88 95 H Pulse Rhythm Pulse Strength Respiratory Rate 16 19 18 Respiratory Effort / Characteristics Respiratory Depth Respiratory Pattern Blood Pressure Blood Pressure Mean Blood Pressure Position Pulse Oximetry 100 100 95 Oxygen Delivery Method Oxygen Flow Rate Sepsis Recent Fever Within 48 Hours Sepsis New/Unexplained Change in Mental Status Sepsis Action Taken by Nursing 05/06/20 16:10 05/06/20 16:20 05/06/20 16:30 Temperature Temperature Source Pulse Rate 80 75 119 H Pulse Rate from SpO2 Sensor 83 81 99 H Pulse Rhythm Pulse Strength Respiratory Rate 13 14 Respiratory Effort / Characteristics Respiratory Depth Respiratory Pattern Blood Pressure Blood Pressure Mean Blood Pressure Position Pulse Oximetry 100 100 Oxygen Delivery Method Oxygen Flow Rate Sepsis Recent Fever Within 48 Hours Sepsis New/Unexplained Change in Mental Status Sepsis Action Taken by Nursing 05/06/20 16:37 Temperature Temperature Source Pulse Rate Pulse Rate from SpO2 Sensor Pulse Rhythm Pulse Strength Respiratory Rate Respiratory Effort / Characteristics Respiratory Depth Respiratory Pattern Blood Pressure Blood Pressure Mean Blood Pressure Position Pulse Oximetry 94 Oxygen Delivery Method Nasal Cannula Oxygen Flow Rate 2 Sepsis Recent Fever Within 48 Hours Sepsis New/Unexplained Change in Mental Status Sepsis Action Taken by Nursing Laboratory Data Result diagrams: 05/06/20 15:50 05/06/20 15:50 Lab Results 05/06/20 05/06/20 05/06/20 Range/Units 15:50 15:50 15:50 WBC 20.33 H (4.8-10.8) K/uL RBC 3.80 L (4.2-5.4) M/uL Hgb 10.5 L (12.0-16.0) g/dL Hct 34.1 L (37-47) % MCV 89.7 (80-100) fL MCH 27.6 (25-34) pg MCHC 30.8 L (32-36) g/dL RDW Std Deviation 94.8 H (36.4-46.3) fL RDW Coeff of Uma 30.3 H (11.5-14.5) % Plt Count 243 (130-400) K/uL MPV 10.5 H (7.4-10.4) fL Immature Gran % (Auto) 0.3 % Neut % (Auto) 94.0 % Lymph % (Auto) 4.0 % Jefferson % (Auto) 1.7 % Eos % (Auto) 0.0 % Baso % (Auto) 0.0 % Neut # (Auto) 19.10 H (1.4-6.5) K/uL Lymph # (Auto) 0.82 L (1.2-3.4) K/uL Jefferson # (Auto) 0.34 (0.11-0.59) K/uL Eos # (Auto) 0.00 (0-0.5) K/uL Baso # (Auto) 0.00 (0-0.2) K/uL Immature Gran # (Auto) 0.07 H (0.00-0.02) K/uL Absolute Nucleated RBC 0.07 H (0-0) K/uL Nucleated RBC % (auto) 0.3 % Polychromasia 1+ Hypochromasia Present Anisocytosis Present PT 11.6 (9.0-12.0) Seconds INR 1.1 (0.9-1.1) APTT 38.2 H (21.0-31.0) Seconds PTT Ratio 1.4 Sodium 142 (136-145) mmol/L Potassium 4.2 (3.5-5.1) mmol/L Chloride 111 H (98-107) mmol/L Carbon Dioxide 27 (21-32) mmol/L Anion Gap 4.0 (3-11) BUN 46 H (7-18) mg/dl Creatinine 0.63 (0.6-1.2) mg/dl Est Cr Clr Drug Dosing 66.1 ml/min Est GFR ( Amer) 97.5 Est GFR (Non-Af Amer) 84.1 BUN/Creatinine Ratio 73.6 H (10-20) Glucose 133 H (70-99) mg/dl Calcium 8.4 L (8.5-10.1) mg/dl Magnesium 2.5 H (1.8-2.4) mg/dl Total Bilirubin 0.6 (0.2-1) mg/dl AST 25 (15-37) U/L ALT 61 (12-78) U/L Alkaline Phosphatase 114 (45-117) U/L Troponin I < 0.015 (0-0.045) ng/ml NT-Pro-B Natriuret Pep 3845 H (0-1800) pg/ml Total Protein 5.8 L (6.4-8.2) gm/dl Albumin 2.4 L (3.4-5.0) gm/dl Globulin 3.4 (2.5-4.0) gm/dl Albumin/Globulin Ratio 0.7 L (0.9-2) Procalcitonin (0-0.5) ng/ml TSH 1.830 (0.300-4.500) uIu/ml 05/06/20 05/06/20 Range/Units 15:50 15:50 WBC (4.8-10.8) K/uL RBC (4.2-5.4) M/uL Hgb (12.0-16.0) g/dL Hct (37-47) % MCV (80-100) fL MCH (25-34) pg MCHC (32-36) g/dL RDW Std Deviation (36.4-46.3) fL RDW Coeff of Uma (11.5-14.5) % Plt Count (130-400) K/uL MPV (7.4-10.4) fL Immature Gran % (Auto) % Neut % (Auto) % Lymph % (Auto) % Jefferson % (Auto) % Eos % (Auto) % Baso % (Auto) % Neut # (Auto) (1.4-6.5) K/uL Lymph # (Auto) (1.2-3.4) K/uL Jefferson # (Auto) (0.11-0.59) K/uL Eos # (Auto) (0-0.5) K/uL Baso # (Auto) (0-0.2) K/uL Immature Gran # (Auto) (0.00-0.02) K/uL Absolute Nucleated RBC (0-0) K/uL Nucleated RBC % (auto) % Polychromasia Hypochromasia Anisocytosis PT (9.0-12.0) Seconds INR (0.9-1.1) APTT (21.0-31.0) Seconds PTT Ratio Sodium (136-145) mmol/L Potassium (3.5-5.1) mmol/L Chloride (98-107) mmol/L Carbon Dioxide (21-32) mmol/L Anion Gap (3-11) BUN (7-18) mg/dl Creatinine (0.6-1.2) mg/dl Est Cr Clr Drug Dosing ml/min Est GFR ( Amer) Est GFR (Non-Af Amer) BUN/Creatinine Ratio (10-20) Glucose (70-99) mg/dl Calcium (8.5-10.1) mg/dl Magnesium (1.8-2.4) mg/dl Total Bilirubin (0.2-1) mg/dl AST (15-37) U/L ALT (12-78) U/L Alkaline Phosphatase (45-117) U/L Troponin I (0-0.045) ng/ml NT-Pro-B Natriuret Pep (0-1800) pg/ml Total Protein (6.4-8.2) gm/dl Albumin (3.4-5.0) gm/dl Globulin (2.5-4.0) gm/dl Albumin/Globulin Ratio (0.9-2) Procalcitonin < 0.05 (0-0.5) ng/ml TSH Cancelled (0.300-4.500) uIu/ml Administered Medications Furosemide 40 mg/ Albumin (Human) 54 mls @ 54 mls/hr IV [id number] [facility] Stop: 05/07/20 09:59 Last Admin: 05/06/20 19:16 Dose: 54 mls/hr Documented by: [id number] Discharge Plan Visit Data Chief Complaint: Shortness of Breath/Dyspnea Stated Complaint: SOB ED Provider: Josue Batista Discharge Problem: Hypoxic, Paroxysmal atrial fibrillation, Leukocytosis, Breath shortness, Pleural effusion Patient Disposition: Admitted As Inpatient Discharge Instructions Interventions: ED Discharge Assessment Last Done: 05/06/20 18:09 Discharge Problem: Leukocytosis Qualifiers: Leukocytosis type: unspecified Qualified Code(s): D72.829 - Elevated white blood cell count, unspecified
[2020-05-06 16:19] LABS: INR 1.1 (0.9-1.1); Partial Thromboplastin Ratio 1.4; Partial Thromboplastin Time 38.2 Seconds (21.0-31.0); Prothrombin Time 11.6 Seconds (9.0-12.0)
[2020-05-06 16:27] LABS: Alanine Aminotransferase 61 U/L (12-78); Albumin Level 2.4 gm/dl (3.4-5.0); Aspartate Aminotransferase 25 U/L (15-37); BUN Creatinine Ratio 73.6 (10-20); Blood Urea Nitrogen 46 mg/dl (7-18); Calcium 8.4 mg/dl (8.5-10.1); Carbon Dioxide 27 mmol/L (21-32); Chloride 111 mmol/L (98-107); Creatinine Clr Calc Pharmacy 66.1 ml/min; Est GFR (African American) 97.5; Est GFR (Non-African American) 84.1; Glucose 133 mg/dl (70-99); Magnesium 2.5 mg/dl (1.8-2.4); Potassium 4.2 mmol/L (3.5-5.1); Sodium 142 mmol/L (136-145)
[2020-05-06 16:32] LABS: Albumin Globulin Ratio 0.7 (0.9-2); Alkaline Phosphatase 114 U/L (45-117); Bilirubin,Total 0.6 mg/dl (0.2-1); Globulin 3.4 gm/dl (2.5-4.0); NT Pro B Type Natriuretic Pept 3845 pg/ml (0-1800); Total Protein 5.8 gm/dl (6.4-8.2); Troponin I < 0.015 ng/ml (0-0.045)
[2020-05-06 16:37] LABS: Anisocytosis Present; Hypochromasia Present; Polychromasia 1+
[2020-05-06] MEDS ORDERED: VANCOMYCIN CONSULT ACTIVE PRN (17:12)
[2020-05-06] MEDS ORDERED: PIPERACILL/TAZOBAC CONSULT ACTIVE PRN (17:12)
--- NOTE | 2020-05-06 17:14 | History & Physical Report ---
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 Patient with recent hospitalization secondary to acute bilateral pulmonary emboli. Recent echocardiogram revealed EF WNL, dilated IVC with abuse collapsibility and increased right atrial pressure. Moderate and worsened R pleural effusion possibly in setting of acute right sided heart failure, vs hypoalbuminemia vs possible right lower lobe pneumonia among other etiologies. Chest x-ray concerning for Moderate R pleural effusion, pulmonary edema and right basilar opacity, previous hospital admission was also treated with IV antibiotics. Elevated Probnp 3,845. She does not have fever or cough but she is immunocompromised and does have leukocytosis Blood cultures and procalcitonin pending admit to [facility] Lasix 40mg IV with albumin x 1 now and in a.m. - monitor response and reassess Cover empirically with IV vancomycin and Zosyn until ruled out Encourage incentive spirometry consult bullet lubricant mixer to assist with nutritional status consult Cardiology and pulmonology - appreciate their input (3) Bilateral pulmonary embolism: Recent hospital admission 04/12 through 04/20 secondary to acute bilateral PE Had echocardiogram which revealed normal EF, dilated IVC with reduced collapsibility and increased right arterial pressure Continue Lovenox 60 mg IV twice daily Supplemental oxygen PRN, she may benefit from home O2 and will likely need two step prior to discharge (4) Persistent atrial fibrillation: rate controlled on metoprolol, remains of amiodarone continues in atrial fibrillation cardiology consulted for above (5) Nonspecific ST-T wave electrocardiographic changes: EKG now with T wave changes leads V4-6, III troponin WNL, no chest pain repeat trop - possibly in setting of heart failure (6) Leukocytosis: WBC 20k, previously had been 30-35k pt did receive neulasta in march and just completed a 5 day decadron course for appetite stimulant possibly in setting of above vs infection? blood culture and procalcitonin pending (previously had been elevated) Start empiric broad spectrum antibiotics with vanco/zosyn for possible PNA until ruled out (7) Colon cancer metastasized to liver: Stage 4 colorectal Ca with mets to Liver follows colorectal surg and heme/onc Dr. Torres s/p 3 cycles folfox and avastatin - currently on hold due to acute PE (8) Anemia: H&H stable at 10.5 and 34.1 No signs or symptoms of bleeding Monitor H&H Likely in setting of chronic disease and colorectal cancer (9) Protein calorie malnutrition: Hypoalbuminemia with lower extremity edema Consult dietitian Was prescribed Marinol 5 mg twice daily because dizziness, this was reduced to 2.5 mg twice daily but she has not yet started this (10) DVT prophylaxis: Lovenox 60mg SQ Q12 08/25 to bilateral PE Disposition: admit to med tele Follow up: PCP Dr. Crowell upon discharge Pt was seen and examined in collaboration with Dr. Silveira please see addendum Starting 05/07/2020 pt will be under the care of Dr. Claudio History of Present Illness Chief Complaint: SOB x 24 hrs. 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 who is retired general surgeon is at bedside. Of significance patient recently hospitalized 04/15 to 04/20 secondary to acute bilateral PE complicated with A. fib RVR, leukocytosis secondary to G-CSF, and right lower lobe pneumonia. She did undergo echocardiogram during hospitalization which revealed normal EF, dilated IVC with reduced collapsibility and increased right atrial pressure. Her statin was placed on hold. She was discharged on Lovenox 60 mg every 12 hours. She did have follow-up with colorectal surgery today. Hematology oncology recommends continuing twice daily dosing of Lovenox. Over the past 24 hours she has noted increased shortness of breath as well as hypoxia. She de nies any known fever, chills, sweats, lightheadedness, dizziness, syncope, chest pain, cough, hemoptysis, nausea, vomiting, abdominal pain, diarrhea. Overall she has very poor appetite and does drink 1 Ensure a day. She does have bilateral lower extremity swelling but feels this is normal for her. He feels related to poor nutrition status, hypoalbuminemia and weight loss. She does have skin tear to left pretibial area which has been has been dressing daily. She was prescribed Marinol by PCP 5 mg twice daily although this made patient dizzy. They did just reduce the dose to 2.5 mg daily but she has not yet resumed this. She also just completed a 5-day course of Decadron to try to stimulate appetite. In ED patient did remain hemodynamically stable although she did require 2 L of supplemental oxygen. Lab work notable for WBC 20.33k, H&H 10.5 and 34.1, platelet 243, neutrophil predominance, BUN 46, creatinine 0.63, glucose 133, mag 2.5, proBNP 3845, albumin 2.4. Chest x-ray revealed increase in size of moderate right pleural effusion with associated right basilar opacity. No change in small left pleural effusion. Interstitial thickening consistent with pulmonary edema. Allergies Allergy/AdvReac Type Severity Reaction Status Date / Time No Known Allergies Allergy Unverified 04/15/20 13:54 Home Medications Home Medications Medication Instructions Recorded Confirmed Type Magic Swizzle 15 ml PO QID PRN 04/15/20 05/06/20 History docusate sodium 100 mg PO BID PRN 04/15/20 05/06/20 History ondansetron HCl 8 mg PO Q8H PRN 04/15/20 05/06/20 History polyethylene glycol 3350 [Miralax] 17 g PO BID 04/15/20 05/06/20 History prochlorperazine maleate 10 mg PO Q6H PRN 04/15/20 05/06/20 History senna 8.6 mg PO DAILY 04/15/20 05/06/20 History amiodarone 200 mg PO BID #60 tab 04/20/20 05/06/20 Rx enoxaparin 60 mg SUBCUT Q12 5 Days #6 ml 04/20/20 05/06/20 Rx metoprolol tartrate 12.5 mg PO BID #30 tab 04/20/20 05/06/20 Rx dronabinol [Marinol] 2.5 mg PO BID 05/06/20 05/06/20 History Past Med/Surg History Medical History Arterial hypotension Chronic anticoagulation Colon cancer metastasized to liver HLD (hyperlipidemia) Hypertension Paroxysmal atrial fibrillation Surgical History History of dilation and curettage Family History Father Heart disease Mother Heart disease Social History Smoking Status: Never smoker Tobacco Type: Cigarettes Hx Alcohol Use: Yes Hx Substance Use: No Preferred Language: Sinhala Communication Ability: Effective 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 Beliefs That Will Affect Care: None marital status: Current Living Situation: Spouse How many Children do You have: 6 Feels Safe at Home: Yes Assistive Devices: Glasses Review of Systems Review of Systems: All systems reviewed & are unremarkable except as noted in HPI & below Physical Exam Physical Exam: Constitutional: Chronically ill-appearing female, elderly, vitals as above, NAD, sitting up in bed, pleasant, conversing easily Head: Normocephalic, Atraumatic Eyes: PERRL, conjunctivae normal, anicteric sclerae ENMT: external ear and nose normal, oropharynx normal Neck: trachea midline, no thyromegaly normal visual inspection Respiratory: On O2 via NC, normal respiratory effort, lungs clear to auscultation with decreased breath sounds at bases right greater than left, dullness to percussion to right posterior thorax T4-6 region, no wheeze, rales, rhonchi. Normal insp/exp effort, no accessory muscle use Cardiovascular: IRR/IRR, 1/6 GENESIS noted RUSB, bilateral +3 lower extremity edema with mild venostasis changes, large ecchymotic area to left pretibial area with skin tear, no surrounding erythema or warmth, bilateral pedal pulse +1 and equal Vessels: no JVD or carotid bruit Chest: Right anterior chest wall port, normal inspection of chest Abdomen: normal bowel sounds, soft, nontender, no hepatosplenomegaly Musculoskeletal: no cyanosis or clubbing, active range of motion to extremities x4 Skin: no rashes, warm and dry normal turgor Neurologic: PERRL, EOMI, accommodation nl, no face palsy, no dysarthria CN's II-XI intact bilaterally and moves all extremities Psychiatric: A+Ox3, euthymic affect Lymphatic: no cervical or axillary lymphadenopathy : deferred Results & Data Results & Data ([facility]) Vital Signs (Past 12 Hours) Vital Signs Temp Pulse Resp BP Pulse Ox 05/06/20 16:37 94 05/06/20 16:00 97 H 18 95 05/06/20 15:50 91 H 19 100 05/06/20 15:44 108 H 16 100 05/06/20 15:22 96 H 22 144/64 H 99 05/06/20 15:10 36.4 C 88 24 144/64 H 87 L Laboratory Results Short CBC 05/06/20 Range/Units 15:50 WBC 20.33 H (4.8-10.8) K/uL Hgb 10.5 L (12.0-16.0) g/dL Hct 34.1 L (37-47) % Plt Count 243 (130-400) K/uL BMP 05/06/20 15:50 Sodium 142 Potassium 4.2 Chloride 111 H Carbon Dioxide 27 BUN 46 H Creatinine 0.63 Glucose 133 H Calcium 8.4 L Cardiac Enzymes 05/06/20 Range/Units 15:50 Troponin I < 0.015 (0-0.045) ng/ml Liver Function 05/06/20 Range/Units 15:50 Total Bilirubin 0.6 (0.2-1) mg/dl AST 25 (15-37) U/L ALT 61 (12-78) U/L Alkaline Phosphatase 114 (45-117) U/L Albumin 2.4 L (3.4-5.0) gm/dl Diagnostic Findings CXR: IMPRESSION: 1. Increase in size of a moderate right pleural effusion with associated right basilar opacity. Radiographic follow up is recommended. No change in a small left pleural fusion. 2. Interstitial thickening consistent with pulmonary edema. ECG Rhythm: atrial fibrillation Additional Comments: t wave inversin V4-6, III Code Status & VTE Plan Code Status Full Code VTE Prophylaxis Plan VTE Prophylaxis will be ordered: No Reason for no VTE drug order: Contraindicated Reason for no VTE mechanical prophylaxis: Treatment not indicated Supervising Physician Co-Signing Physician Notes I saw this patient with the physician residential real estate assistant, I participated in the history, physical, review of systems, and physical exam. I reviewed the medications with the patient and the physician residential real estate assistant and helped reconcile the medications. I helped take a detailed family and social history as well. I formulated the assessment and plan personally with the physician residential real estate assistant and went over it with the patient. ROS-No Headache, No Visual Changes, No Nausea, No Vomiting, No Fever, No Chills, No Neck Pain or Stiffness, No Chest Pain, No Palpitations, No SOB, No GASCA, No Cough, No Sputum, No Wheezing, No Abdominal Pain, No Diarrhea, No Hematemesis, No Hemoptysis, No Unexpected Weight Loss, No Flank pain, No Melena, No Hematochezia, No Frequency, No Urgency, No Burning, No Hematuria, No Rashes, No Diaphoresis. Appetite is Normal Physical Exam Gen-AAO x 3, NAD, Afebrile, Frail Cachectic, Port R Upper Chest Head-NCAT, EOMI, PERRLA, Anicteric Sclera, No Posterior Pharyngeal Erythema Neck-Supple, No JVD, No Thyromegaly, No Masses, No LAD, No Bruits Lungs-Decreased BS 2/[address] upon Right, No Rales, No Rhonchi, No Wheezing, No Cre pitus Chest-No S4, +S1, +S2, No S3, No Murmurs, No Rubs, No Gallops, No Ectopy Abdomen-Soft, Bowel Sounds Present, Non Tender, Non Distended, No Hepatomegaly, No Splenomegaly, No Palpable Masses, No Rebound, No Rigidity, No Guarding Musculoskeletal-Full Range of Motion Bilaterally, No CVAT Extremities-No Cyanosis, No Clubbing, + Edema Bilaterallly, C Avulsion L, Ecchymosis L>R Nuero-Cranial Nerves II-XII grossly intact, Motor WNL, DTRs WNL, Strength WNL, Non Focal Psych-Normal Mood (1) Leukocytosis Leukocytosis type: unspecified Qualified Code(s): D72.829 - Elevated white blood cell count, unspecified
[2020-05-06] MEDS ORDERED: POLYETHYLENE (MIRALAX) 17 GM PACK PO PRN (19:16)
[2020-05-06] MEDS ORDERED: DOCUSATE SODIUM 100 MG CAP PO PRN (19:16)
[2020-05-06] MEDS ORDERED: ALUMINUM/MAGNESIUM SUSP 30 ML UDC PO PRN (19:16)
[2020-05-06] MEDS ORDERED: MAGNESIUM HYDROXIDE SUSP 30 ML UDC PO PRN (19:16)
[2020-05-06] MEDS ORDERED: NON-FORMULARY MEDICATION (Magic Swizzle 15 ML) PO PRN (19:16)
[2020-05-06] MEDS ORDERED: ONDANSETRON INJ 2 MG/ML 2 ML VIAL IV PRN (19:16)
[2020-05-06] MEDS: ALBUMIN 25% 50 ML with FUROSEMIDE 40 MG IV SCH (19:16)
[2020-05-06] MEDS ORDERED: ACETAMINOPHEN 325 MG TAB PO PRN (19:16)
[2020-05-06] MEDS ORDERED: PIPERACILLIN/TAZOBACTAM 3.375 GM in DEXTROSE 5% 100 ML IV ONE (20:00)
[2020-05-06] MEDS ORDERED: VANCOMYCIN HCL 1,500 MG in SODIUM CHLORIDE 0.9% 500 ML IV ONE (20:00)
[2020-05-06] MEDS ORDERED: Magic Swizzle w/Glycerin 240mL MT PRN (20:02)
[2020-05-06] MEDS ORDERED: Magic Swizzle w/ Sucralfate 240mL PO PRN (20:03)
[2020-05-06] MEDS: METOPROLOL TARTRATE 25 MG TAB PO SCH (20:31)
[2020-05-06] MEDS: AMIODARONE 200 MG TAB PO SCH (20:31)
[2020-05-06] MEDS: POLYETHYLENE (MIRALAX) 17 GM PACK PO SCH (20:31)
[2020-05-06] MEDS ORDERED: ENOXAPARIN INJ 60 MG/0.6 ML SYR SQ SCH (21:00)
[2020-05-06] MEDS: HEPARIN 100 UNIT/ML 5ML FLUSH FLUSH PRN (23:54)
[2020-05-07] MEDS: PIPERACILLIN/TAZOBACTAM 3.375 GM in DEXTROSE 5% 100 ML IV SCH ×3 (03:11→17:11)
[2020-05-07 03:19] LABS: Hematocrit (blood only) 33.2 % (37-47); Hemoglobin 10.3 g/dL (12.0-16.0); Mean Corpuscular Hemoglobin 27.9 pg (25-34); Mean Platelet Volume 10.3 fL (7.4-10.4); Nucleated RBC # (auto) 0.05 K/uL (0-0); Nucleated RBC % (auto) 0.2 %; Platelet Count 221 K/uL (130-400); RDW Coefficient of Variation 30.1 % (11.5-14.5); RDW Standard Deviation 94.7 fL (36.4-46.3); Red Blood Count 3.69 M/uL (4.2-5.4); White Blood Count 25.43 K/uL (4.8-10.8)
[2020-05-07 03:38] LABS: Alanine Aminotransferase 61 U/L (12-78); Albumin Level 2.6 gm/dl (3.4-5.0); Aspartate Aminotransferase 24 U/L (15-37); BUN Creatinine Ratio 60.9 (10-20); Blood Urea Nitrogen 43 mg/dl (7-18); Calcium 8.2 mg/dl (8.5-10.1); Carbon Dioxide 31 mmol/L (21-32); Chloride 108 mmol/L (98-107); Creatinine Clr Calc Pharmacy 59.5 ml/min; Est GFR (African American) 94.2; Est GFR (Non-African American) 81.3; Glucose 120 mg/dl (70-99); Magnesium 2.2 mg/dl (1.8-2.4); Potassium 3.8 mmol/L (3.5-5.1); Sodium 143 mmol/L (136-145)
[2020-05-07 03:43] LABS: Albumin Globulin Ratio 0.9 (0.9-2); Alkaline Phosphatase 104 U/L (45-117); Bilirubin,Total 0.7 mg/dl (0.2-1); Total Protein 5.6 gm/dl (6.4-8.2); Troponin I < 0.015 ng/ml (0-0.045)
[2020-05-07 03:51] LABS: Anisocytosis Present; Eosinophils # (auto) 0.01 K/uL (0-0.5); Hypochromasia Present; Immature Granulocytes # (auto) 0.12 K/uL (0.00-0.02); Immature Granulocytes % (auto) 0.5 %; Lymphocytes # (auto) 1.47 K/uL (1.2-3.4); Lymphocytes % (auto) 5.8 %; Monocytes # (auto) 0.45 K/uL (0.11-0.59); Monocytes % (auto) 1.8 %; Neutrophils # (auto) 23.38 K/uL (1.4-6.5); Neutrophils % (auto) 91.9 %; Poikilocytosis Present; Polychromasia 1+
--- NOTE | 2020-05-07 05:51 | Electrocardiogram Report ---
Test Reason : Blood Pressure : / mmHG Vent. Rate : 096 BPM Atrial Rate : 110 BPM P-R Int : 000 ms QRS Dur : 076 ms QT Int : 362 ms P-R-T Axes : 000 019 167 degrees QTc Int : 457 ms Atrial fibrillation Abnormal ECG When compared with ECG of 17-APR-2020 07:00, T wave inversion now evident in Anterolateral leads QT has lengthened Confirmed by Kb Diop ([id number]) on 05/07/2020 5:50:47 AM Referred By: REFERRED SELF Confirmed By:Kb Diop
[2020-05-07] MEDS ORDERED: ACETAMINOPHEN 325 MG TAB PO PRN (07:09)
--- NOTE | 2020-05-07 08:38 | Cardiology Consultation ---
Date of Consultation May 07, 2020 Assessment & Plan (1) Acute right-sided congestive heart failure: (2) Hypoxia: (3) Bilateral pulmonary embolism: (4) Metastatic cancer: (5) Persistent atrial fibrillation: (6) Pleural effusion: (7) Protein calorie malnutrition: 79-year-old female admitted with progressive dyspnea on exertion secondary to acute right-sided heart failure, recent bilateral pulmonary emboli, right-sided pleural effusion, and worsening volume overload with hypoalbuminemia. She remains in atrial fibrillation with relatively controlled ventricular response. Continue amiodarone and metoprolol tartrate as previously ordered. Appropriately anticoagulated with Lovenox. Continue IV diuretic therapy, Lasix 40 mg every 12 hours. Follow daily weight, GFR, and electrolytes. Pulmonary consultation pending at this time to consider thoracentesis. After discussion with patient and , conservative measures likely preferred at this time. If she does not proceed with thoracentesis, restart Lovenox this a.m. and continue twice daily as scheduled. Antibiotic therapy as per internal medicine and pulmonary. Recommend concentrating IV antibiotics if possible to limit IVF. Thank you for allow me to participate in the care of your patient. I will continue to follow during hospitalization. History of Present Illness Reason for Consultation: Acute right-sided heart failure Requesting Physician: Carmen Vinson PA-C Attending Physician: Huber Claudio MD History of Present Illness Complex 79-year-old female with history of stage IV metastatic colorectal cancer status post 3 cycles of chemotherapy with FOLFOX and avastin. Chemotherapy currently on hold. Recently hospitalized in March with acute pulmonary embolus and LLE DVT. Discharged on Lovenox 60 mg subcutaneous every 12 hours. History of persistent atrial fibrillation with intermittent rapid ventricular response, and left subclavian steal syndrome. Present to the ER 05/06/2020 with shortness of breath x24 hours. X-ray on admission demonstrates interval development of moderate to large right-sided pleural effusion. ECG confirms presence of atrial fibrillation with T wave inversions. Troponins undetectable on admission. Patient seen and examined at the bedside. Reports 24 hours of dyspnea at rest prior to hospitalization. Lower extremity edema worsening over the past few weeks. Denies chest pain or palpitations. No lightheadedness, dizziness, synco pe, or near syncope. Treated with albumin and IV Lasix in ER. Symptoms have improved significantly. Currently resting comfortably. Oxygen saturation stable on 2 L nasal cannula. Allergies Allergy/AdvReac Type Severity Reaction Status Date / Time No Known Allergies Allergy Unverified 04/15/20 13:54 Home Medications Home Medications Medication Instructions Recorded Confirmed Type Magic Swizzle 15 ml PO QID PRN 04/15/20 05/06/20 History docusate sodium 100 mg PO BID PRN 04/15/20 05/06/20 History ondansetron HCl 8 mg PO Q8H PRN 04/15/20 05/06/20 History polyethylene glycol 3350 [Miralax] 17 g PO BID 04/15/20 05/06/20 History prochlorperazine maleate 10 mg PO Q6H PRN 04/15/20 05/06/20 History senna 8.6 mg PO DAILY 04/15/20 05/06/20 History amiodarone 200 mg PO BID #60 tab 04/20/20 05/06/20 Rx enoxaparin 60 mg SUBCUT Q12 5 Days #6 ml 04/20/20 05/06/20 Rx metoprolol tartrate 12.5 mg PO BID #30 tab 04/20/20 05/06/20 Rx dronabinol [Marinol] 2.5 mg PO BID 05/06/20 05/06/20 History Patient History Medical History Arterial hypotension Chronic anticoagulation Colon cancer metastasized to liver HLD (hyperlipidemia) Hypertension Paroxysmal atrial fibrillation Surgical History History of dilation and curettage Family History Father Heart disease Mother Heart disease Social History Smoking Status: Former smoker Tobacco Type: Cigarettes Second Hand Exposure: No; Do You Dip or Chew Tobacco: No; Tobacco Cessation Education Requested by Patient: No Hx Alcohol Use: Yes Alcohol type: other Hx Substance Use: No Preferred Language: Irish Communication Ability: Effective Regional Marketing Manager Required: No Beliefs That Will Affect Care: None marital status: Current Living Situation: Spouse How many Children do You have: 6 Other Information That Helps Us Care for You: No Feels Safe at Home: Yes Safety Concerns: Feels Safe At This Time Assistive Devices: Oxygen - Continuous Review of Systems Review of Systems: All systems reviewed & are unremarkable except as noted in HPI & below Physical Exam Constitutional: well developed, + ill appearing and + thin; no acute distress Respiratory: no respiratory distress, no labored breathing, no retractions and does not use accessory muscles Auscultation: + diminished lung sounds (Bases bilaterally, right greater than left) and + rales (right mid lung field); no rhonchi and no wheezes Cardiovascular: Rate/Rhythm: + irregularly irregular Heart Sounds: normal S1 and normal S2; no murmur Vessels: + JVD Extremities: + edema (2-3 + bilateral pretibial edema) Gastrointestinal (Abdomen): Inspection/Auscultation: abdomen normal to inspection and normal bowel sounds; abdomen not distended Percussion/Palpation: abdomen soft; abdomen nontender, no guarding and abdomen not rigid Skin: no rashes Neurologic: CN's II-XI intact bilaterally and moves all extremities; no focal motor deficits Speech / Cognition: normal speech Motor/Sensory: no tremor Psychiatric: A+Ox3, euthymic affect Results & Data ([facility]) Vital Signs (Past 12 Hours) Vital Signs Temp Pulse Pulse Resp BP Pulse Ox 05/07/20 07:28 36.3 C L 84 18 120/77 95 05/07/20 05:08 36.2 C L 05/07/20 04:02 35.8 C L 78 18 117/64 95 05/06/20 22:33 36.2 C L 83 18 112/72 96 05/06/20 22:20 75 (1) Metastatic cancer Area of secondary neoplastic involvement: unspecified site Qualified Code(s): C79.9 - Secondary malignant neoplasm of unspecified site
[2020-05-07] MEDS ORDERED: ALBUMIN 25% 50 ML with FUROSEMIDE 40 MG IV SCH (09:00)
--- NOTE | 2020-05-07 09:01 | Pulmonary Consultation ---
Date of Consultation May 07, 2020 Assessment & Plan (1) Pleural effusion, right: Chest x-ray 05/06/2020 personally reviewed: Portable film, right-sided costophrenic angle is blunted, right-sided pleural effusion is appreciated, left cardiophrenic clean, minimal blunting of the left costophrenic angle could represent minimal left-sided pleural effusion. Right-sided Port-A-Cath. Echo 04/16/20: EF 55-60%, RVSP 50-60mmhg --Right-sided pleural effusion Patient had PE on 04/15/2020 with significant obstruction of the right main pulmonary artery Patient had some interstitial thickening on the right lower lobe at that time Possibility of a pulmonary infarct and resulting pleural effusion is a possibility. Patient has elevated WBC count which she had a since 04/15 could be from underlying cancer Patient does not present as if she is septic. Parapneumonic effusion can present similarly but low on differential Lastly given patient has stage IV cancer already, malignant right-sided pleural effusion also plays a role Patient does have protein calorie malnutrition and such patients to get pleural effusion but they are usually bilateral. Thoracentesis could be done in the patient. Risks and benefits of the procedure explained to the patient and the family. --COPD with emphysema Inhaled bronchodilators -- Recent history of PE Diagnosed 04/15/2020 On therapeutic Lovenox Plan: Case was discussed with patient in the presence of her daughter as well as her (who was on the phone) and discussed the possibilities and etiologies of the right-sided pleural effusion. Patient and wants to see how she responds to Lasix before making decision of thoracentesis. Continue with diuresis we will repeat chest x-ray on Monday morning and if she still has significant pleural effusion will talk with the family and the patient again if she would be willing to have a thoracentesis done. Add doxycycline for atypical coverage. Please note the above document was generated using voice recognition software. It may contain grammatical, syntax or spelling errors.Any formal questions or concerns about the content, text or information contained within the body of this dictation should be directly addressed to the provider for clarification. (2) Pulmonary emboli: Acute cor pulmonale presence: unspecified Chronicity: acute Pulmonary embolism type: other Qualified Code(s): I26.99 - Other pulmonary embolism without acute cor pulmonale (3) COPD with emphysema: History of Present Illness Attending Physician: Huber Claudio MD History of Present Illness 79-year-old female with past medical history of stage IV colon cancer s/p 3 cycles of FOLFOX on hold secondary to diagnosis of PE on April 15, 2020, COPD with emphysema Paroxysmal A. eusebio on therapeutic Lovenox twice daily at home was admitted to the hospital because of shortness of breath since last couple of days. On asking the patient patient denies that it is exertional. She states that it can happen even at rest. Denies any cough, no chest pain, no fever or chills. No dysuria, no diarrhea. Denies any hematuria, no hematochezia, no epistaxis. Patient denies any wheezing when she is short of breath. No fever no chills. No recent travel history. Pulmonary was consulted because of right-sided pleural effusion that she came in with. Social history: Greater than [id number] smoking history, currently not smoking. Not on any inhalers at home Allergies Allergy/AdvReac Type Severity Reaction Status Date / Time No Known Allergies Allergy Unverified 04/15/20 13:54 Home Medications Home Medications Medication Instructions Recorded Confirmed Type Magic Swizzle 15 ml PO QID PRN 04/15/20 05/06/20 History docusate sodium 100 mg PO BID PRN 04/15/20 05/06/20 History ondansetron HCl 8 mg PO Q8H PRN 04/15/20 05/06/20 History polyethylene glycol 3350 [Miralax] 17 g PO BID 04/15/20 05/06/20 History prochlorperazine maleate 10 mg PO Q6H PRN 04/15/20 05/06/20 History senna 8.6 mg PO DAILY 04/15/20 05/06/20 History amiodarone 200 mg PO BID #60 tab 04/20/20 05/06/20 Rx enoxaparin 60 mg SUBCUT Q12 5 Days #6 ml 04/20/20 05/06/20 Rx metoprolol tartrate 12.5 mg PO BID #30 tab 04/20/20 05/06/20 Rx dronabinol [Marinol] 2.5 mg PO BID 05/06/20 05/06/20 History Patient History Medical History Arterial hypotension Chronic anticoagulation Colon cancer metastasized to liver HLD (hyperlipidemia) Hypertension Paroxysmal atrial fibrillation Surgical History History of dilation and curettage Family History Father Heart disease Mother Heart disease Social History Smoking Status: Former smoker Tobacco Type: Cigarettes Second Hand Exposure: No; Do You Dip or Chew Tobacco: No; Tobacco Cessation Education Requested by Patient: No Hx Alcohol Use: Yes Alcohol type: other Hx Substance Use: No Preferred Language: Citizen Of [place] Communication Ability: Effective Multimedia Artist Required: No Beliefs That Will Affect Care: None marital status: Current Living Situation: Spouse How many Children do You have: 6 Other Information That Helps Us Care for You: No Feels Safe at Home: Yes Safety Concerns: Feels Safe At This Time Assistive Devices: Oxygen - Continuous Review of Systems Review of Systems: All systems reviewed & are unremarkable except as noted in HPI & below Physical Exam Physical Exam: Constitutional: No acute distress HEENT: EOMI, PERRLA Respiratory system: Decreased air entry bilaterally more decreased on the right side, positive crackles bilateral lower lobes, no wheeze, no rhonchi CVS: S1-S2 positive, no murmurs or gallops, irregular, right-sided port Abdomen: Soft, nontender, nondistended, positive bowel sounds x4 Extremities: +2 pulses bilaterally radialis/ dorsalis pedis, no cyanosis, +3 pitting edema bilateral lower extremity, right greater than left which is normal as per the family Neuro: Awake alert oriented x3 Psych: Normal mood and affect Skin: no rashes, warm and dry Lymphatic: no cervical or axillary lymphadenopathy Results & Data Results & Data ([facility]) Vital Signs (Past 12 Hours) Vital Signs Temp Pulse Pulse Resp BP Pulse Ox 05/07/20 07:28 36.3 C L 84 18 120/77 95 05/07/20 05:08 36.2 C L 05/07/20 04:02 35.8 C L 78 18 117/64 95 05/06/20 22:33 36.2 C L 83 18 112/72 96 05/06/20 22:20 75 05/07/20 02:59 05/07/20 02:59 PG Care Time/CCT Total # of Minutes Spent Total Time Spent with Patient: Total time spent is greater than 50% in coordination of care (as documented) at patient's floor/unit and/or counseling patient: Coding Level of Care Code 67610 Initial Inpt Care Lvl 3 Diagnoses Pleural effusion, right J90 Pulmonary emboli I26.99 Acute cor pulmonale presence: unspecified Chronicity: acute Pulmonary embolism type: other COPD with emphysema J43.9
[2020-05-07] MEDS: ALBUMIN 25% 50 ML with FUROSEMIDE 40 MG IV SCH ×2 (10:42→21:38)
[2020-05-07] MEDS: METOPROLOL TARTRATE 25 MG TAB PO SCH ×2 (10:43→21:25)
[2020-05-07] MEDS: SENNA 8.6 MG TAB PO SCH (10:43)
[2020-05-07] MEDS: AMIODARONE 200 MG TAB PO SCH ×2 (10:44→21:25)
[2020-05-07] MEDS: POLYETHYLENE (MIRALAX) 17 GM PACK PO SCH ×2 (11:05→21:26)
[2020-05-07] MEDS ORDERED: ENOXAPARIN INJ 60 MG/0.6 ML SYR SQ ONE (12:10)
[2020-05-07] MEDS: DOXYCYCLINE HYCLATE 100 MG CAP PO SCH ×2 (12:59→21:26)
[2020-05-07] MEDS: UMECLIDINIUM BROMIDE 62.5MCG/BLISTER 7 PUFFS/INHALER INH SCH (13:00)
--- NOTE | 2020-05-07 13:40 | Hospitalist Progress Note ---
Date of Service May 07, 2020 Assessment & Plan (1) Colon cancer metastasized to liver: (Stage IV colorectal cancer) -This is an 79-year-old female who has significant past medical history of stage IV metastatic colorectal cancer to liver status post 3 cycles of FOLFOX and Avastin -currently not on chemotherapy because of recent pulmonary embolism and on systemic anticoagulation with Lovenox -patient's oncologist is Alexandru Torres and also follows with colorectal neurosurgery physician (2) Leukocytosis: -prior to this admission her white blood counts were elevated between 30K to 35K -unclear at this time whether leukocytosis from malignancy versus steroids versus possible infection -follow the WBC and blood cultures while on empiric IV antibiotics (3) Hypoxia: - currently on hold secondary to recent acute hospitalization for bilateral PE, HTN, HLD, PAF, anemia of chronic disease, left subclavian steal syndrome who presents to ED on 05/06/2020 secondary to shortness of breath x24 hours. -currently patient on 2 liters/min of supplementary oxygen at rest (4) Bilateral pulmonary embolism: -as per pulmonary consult because "Patient had PE on 04/15/2020 with significant obstruction of the right main pulmonary artery; Patient had some interstitial thickening on the right lower lobe at that time; Possibility of a pulmonary infarct and resulting pleural effusion is a possibility" -has been on Lovenox 60 mg subcutaneous q12 hours, continue at this time (5) Pleural effusion, right: -the likely cause of current hypoxia from the right pleural effusion -patient has been empirically on IV Vancomycin and IV Zosyn in case any causes by a bacterial source and also IV Lasix with albumin if from cardiac component of from Hypoalbuminemia but pulmonary consult Dr. 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 very reluctance about going forward with a thoracentesis because of concerns of pneumothorax and concerns of fluid re-accumulation even if the thoracentesis were performed and requests that patient's clinical respiratory symptoms be assessed and to current medications as above before any invasive procedures (6) Hypoalbuminemia: -the IV albumin with Lasix is improving the serum albumin numbers based on recent hospital labs on this admission, but this is a temporary measure (7) Protein calorie malnutrition: -deputy general counsel consult -Marinol 2.5 mg BID as trial in hospital to encourage more appetite (8) Persistent atrial fibrillation: -metoprolol, and amiodarone -cardiology consult recommendations appreciated if any changes to medications -no chest pain symptoms, troponins are not elevated -On systemic anticoagulation (9) Anemia: -chronic anemia -since January 2020 hemoglobin as recorded by [facility] records that baselines generally between 9 to 10 (10) DVT prophylaxis: -on Lovenox 60 mg subcutaneous q12 hours because of pulmonary embolism Full Code Status Admission and Anticipated Discharge Date Admission Date: May 06, 2020 Subjective Patient on nasal cannula of 2 liters/min. No acute distress. patient speaking in full sentences. denies acute pain. no vomiting. hospitalist met with both patient's daughter and her and discussed the care provided to date Review of Systems Review of Systems: All systems reviewed & are unremarkable except as noted in Subjective Physical Exam Constitutional: comfortable Eyes: PERRL, conjunctivae normal, anicteric sclerae EOM intact bilaterally ENMT: external ear and nose normal, oropharynx normal Neck: normal visual inspection Respiratory: normal respiratory effort Gastrointestinal (Abdomen): normal bowel sounds, soft, nontender, no hepatosplenomegaly Musculoskeletal: Head/Neck/Chest: normocephalic and head atraumatic Neurologic: PERRL, EOMI, accommodation nl, no face palsy, no dysarthria CN's II-XI intact bilaterally Results & Data Results & Data ([facility]) Vital Signs (Past 12 Hours) Vital Signs Temp Pulse Resp BP Pulse Ox 05/07/20 11:27 36.5 C 85 18 126/73 98 05/07/20 07:28 36.3 C L 84 18 120/77 95 05/07/20 05:08 36.2 C L 05/07/20 04:02 35.8 C L 78 18 117/64 95 (1) Leukocytosis Leukocytosis type: unspecified Qualified Code(s): D72.829 - Elevated white blood cell count, unspecified
[2020-05-07] MEDS ORDERED: VANCOMYCIN HCL 1,250 MG in SODIUM CHLORIDE 0.9% 250 ML IV SCH (14:00)
[2020-05-07] MEDS: ENOXAPARIN INJ 60 MG/0.6 ML SYR SQ SCH (22:06)
[2020-05-08] MEDS: PIPERACILLIN/TAZOBACTAM 3.375 GM in DEXTROSE 5% 100 ML IV SCH ×3 (04:06→17:50)
[2020-05-08 05:48] LABS: Basophils # (auto) 0.01 K/uL (0-0.2); Basophils % (auto) 0.1 %; Eosinophils # (auto) 0.09 K/uL (0-0.5); Eosinophils % (auto) 0.5 %; Hematocrit (blood only) 32.3 % (37-47); Hemoglobin 9.9 g/dL (12.0-16.0); Immature Granulocytes # (auto) 0.08 K/uL (0.00-0.02); Immature Granulocytes % (auto) 0.4 %; Lymphocytes # (auto) 1.36 K/uL (1.2-3.4); Lymphocytes % (auto) 7.1 %; Mean Corpuscular Hemoglobin 27.6 pg (25-34); Mean Corpuscular Hgb Conc 30.7 g/dL (32-36); Mean Platelet Volume 10.3 fL (7.4-10.4); Monocytes # (auto) 0.54 K/uL (0.11-0.59); Monocytes % (auto) 2.8 %; Neutrophils # (auto) 17.01 K/uL (1.4-6.5); Neutrophils % (auto) 89.1 %; Platelet Count 188 K/uL (130-400); RDW Coefficient of Variation 29.4 % (11.5-14.5); RDW Standard Deviation 93.3 fL (36.4-46.3); Red Blood Count 3.59 M/uL (4.2-5.4); White Blood Count 19.09 K/uL (4.8-10.8)
[2020-05-08 06:10] LABS: Anisocytosis Present; Poikilocytosis Present
[2020-05-08 06:22] LABS: Albumin Level 2.6 gm/dl (3.4-5.0); BUN Creatinine Ratio 45.2 (10-20); Calcium 8.5 mg/dl (8.5-10.1); Creatinine Clr Calc Pharmacy 61.5 ml/min; Est GFR (Non-African American) 84.6; Potassium 3.3 mmol/L (3.5-5.1)
[2020-05-08 06:27] LABS: Albumin Globulin Ratio 0.9 (0.9-2); Globulin 2.9 gm/dl (2.5-4.0); Total Protein 5.5 gm/dl (6.4-8.2)
[2020-05-08] MEDS ORDERED: POTASSIUM CHLORIDE 20 MEQ/15 ML UDC PO STA (07:19)
[2020-05-08] MEDS: AMIODARONE 200 MG TAB PO SCH ×2 (07:57→20:04)
[2020-05-08] MEDS: DOXYCYCLINE HYCLATE 100 MG CAP PO SCH ×2 (07:57→20:04)
[2020-05-08] MEDS: UMECLIDINIUM BROMIDE 62.5MCG/BLISTER 7 PUFFS/INHALER INH SCH (07:57)
[2020-05-08] MEDS: SENNA 8.6 MG TAB PO SCH (07:57)
[2020-05-08] MEDS: POLYETHYLENE (MIRALAX) 17 GM PACK PO SCH ×2 (07:58→19:39)
[2020-05-08] MEDS: METOPROLOL TARTRATE 25 MG TAB PO SCH ×2 (07:58→20:01)
[2020-05-08] MEDS: ALBUMIN 25% 50 ML with FUROSEMIDE 40 MG IV SCH ×2 (08:28→21:25)
--- NOTE | 2020-05-08 08:55 | Pharmacy Report ---
Pharmacy Abx Dose Short Note - Date of Service May 08, 2020 - Assessment & Plan Assessment 79 year old F receiving IV Vancomycin & Zosyn for treatment of possible pneumonia. Given 2 days of empiric treatment, Dr Claudio would like to extend treatment to 7 days at this time. Patient also started on Doxycycline for atypical coverage by Dr Diez yesterday. Plan Patient currently receiving Vancomycin 1250mg IV Q24h Patient meets criteria for vancomycin AUC dosing nomogram Change to Vancomycin - 1000mg IV q12h AUC/KARLI is the preferred PK/PD target for vancomycin Target AUC/KARLI = 400-600 AUC guided dosing is effective and associated with decreased risk of nephrotoxicity * Trough or random level ordered for: 05/09/20 Zosyn 3.375g IV Q8H extended infusion for CrCl > 20ml/min Doxycycline 100mg PO BID Pharmacy will continue to follow and will adjust dose/frequency as necessary. Thank you.
--- NOTE | 2020-05-08 10:02 | Hospitalist Progress Note ---
Date of Service May 08, 2020 Assessment & Plan (1) Colon cancer metastasized to liver: (Stage IV colorectal cancer) -This is an 79-year-old female who has significant past medical history of stage IV metastatic colorectal cancer to liver status post 3 cycles of FOLFOX and Avastin -currently not on chemotherapy because of recent pulmonary embolism and on systemic anticoagulation with Lovenox -patient's oncologist is Alexandru Torres and also follows with colorectal surgery consultant (2) Leukocytosis: -prior to this admission her white blood counts were elevated between 30K to 35K -unclear at this time whether leukocytosis from malignancy versus steroids versus possible infection -follow the WBC and blood cultures while on IV antibiotics -WBC 19 K on 05/08/2020, so far no growth to date in blood cultures (3) Hypoxia: -currently on hold secondary to recent acute hospitalization for bilateral PE, HTN, HLD, PAF, anemia of chronic disease, left subclavian steal syndrome who presents to ED on 05/06/2020 secondary to shortness of breath x24 hours. -currently patient on 2 liters/min of supplementary oxygen at rest as of 05/07/2020 -try to titrate down to room air consistently based on oxygen saturation and respiratory rate (4) Bilateral pulmonary embolism: -as per pulmonary consult because "Patient had PE on 04/15/2020 with significant obstruction of the right main pulmonary artery; Patient had some interstitial thickening on the right lower lobe at that time; Possibility of a pulmonary infarct and resulting pleural effusion is a possibility" -has been on Lovenox 60 mg subcutaneous q12 hours, continue at this time (5) Pleural effusion, right: -the likely cause of current hypoxia from the right pleural effusion -patient has been empirically on IV Vancomycin and IV Zosyn in case any causes by a bacterial source and also IV Lasix with albumin if from cardiac component of from Hypoalbuminemia but pulmonary consult Dr. 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 very reluctance about going forward with a thoracentesis because of concerns of pneumothorax and concerns of fluid re-accumulation even if the thoracentesis were performed and requests that patient's clinical respiratory symptoms be assessed and to current medications as above before any invasive procedures -PA/Lateral X Ray ordered on 05/08/2020 (6) Hypoalbuminemia: -the IV albumin with Lasix is improving the serum albumin numbers based on recent hospital labs on this admission, but this is a temporary measure (7) Protein calorie malnutrition: -service center specialist consult -Marinol 2.5 mg BID as trial in hospital to encourage more appetite (8) Persistent atrial fibrillation: -metoprolol, and amiodarone -cardiology consult recommendations appreciated if any changes to medications -no chest pain symptoms, troponins are not elevated -On systemic anticoagulation (9) Anemia: -chronic anemia -since January 2020 hemoglobin as recorded by [facility] records that baselines generally between 9 to 10 (10) DVT prophylaxis: -on Lovenox 60 mg subcutaneous q12 hours because of pulmonary embolism Full Code Status Admission and Anticipated Discharge Date Admission Date: May 06, 2020 Subjective Her at the bedside. discussed with patient and if patient strong enough to to Chest X ray as PA/lateral rather than 1 view to get better assessment of the right pleural effusion patient denies acute respiratory distress at this time. no acute pain at this time. Patient has purewick for the urination. reports that she has not been ambulating well at baseline and generally uses wheelchair at home. patient able to move the lower extremities when on the laying on the bed. Review of Systems Review of Systems: All systems reviewed & are unremarkable except as noted in Subjective Physical Exam Constitutional: + frail appearing Eyes: PERRL, conjunctivae normal, anicteric sclerae EOM intact bilaterally ENMT: external ear and nose normal, oropharynx normal Neck: normal visual inspection Respiratory: normal respiratory effort right lower lung jesus with diminished sounds on auscultation compared to left Cardiovascular: Rate/Rhythm: regular rate Gastrointestinal (Abdomen): normal bowel sounds, soft, nontender, no hepatosplenomegaly Musculoskeletal: Head/Neck/Chest: normocephalic Neurologic: PERRL, EOMI, accommodation nl, no face palsy, no dysarthria Psychiatric: A+Ox3, euthymic affect Results & Data Results & Data ([facility]) Vital Signs (Past 12 Hours) Vital Signs Temp Pulse Pulse Resp BP Pulse Ox 05/08/20 08:38 36.7 C 91 H 18 102/66 05/08/20 07:38 36.5 C 75 16 103/62 94 05/08/20 02:42 36.3 C L 88 18 123/78 95 05/08/20 02:13 96 H 05/08/20 00:03 36.6 C 80 18 107/56 L 98 (1) Leukocytosis Leukocytosis type: unspecified Qualified Code(s): D72.829 - Elevated white blood cell count, unspecified
[2020-05-08] MEDS: VANCOMYCIN HCL 1,000 MG in SODIUM CHLORIDE 0.9% 250 ML IV SCH ×2 (10:12→20:59)
[2020-05-08] MEDS: ENOXAPARIN INJ 60 MG/0.6 ML SYR SQ SCH ×2 (10:36→23:01)
--- NOTE | 2020-05-08 10:41 | Cardiology Progress Note ---
Date of Service May 08, 2020 Assessment & Plan (1) Acute right-sided congestive heart failure: (2) Hypoxia: (3) Bilateral pulmonary embolism: (4) Metastatic cancer: (5) Persistent atrial fibrillation: (6) Pleural effusion: (7) Protein calorie malnutrition: 79-year-old female admitted with progressive dyspnea on exertion secondary to acute right-sided heart failure, recent bilateral pulmonary emboli, right-sided pleural effusion, and worsening volume overload with hypoalbuminemia. Volume status improved with intravenous Lasix. Continue IV Lasix, 40 mg twice daily. Follow daily weight, GFR, electrolytes, and fluid balance. Replace potassium as indicated. Remains in atrial fibrillation with adequate rate control. Continue amiodarone and metoprolol tartrate as previously ordered. Continue subcutaneous Lovenox twice daily. Repeat chest x-ray in 48 to 72 hours. Consider thoracentesis if no improvement with moderate to large right-sided pleural effusion. Admission and Anticipated Discharge Date Admission Date: May 06, 2020 Subjective Patient seen and examined at the bedside. Fluid balance -1.2 L over the past 24 hours. Edema improving. Respiratory status remains stable. at bedside. Patient denies chest pain or palpitations. Telemetry reveals atrial fibrillation with controlled ventricular response. Average ventricular rate, 75 bpm. No orthopnea or paroxysmal nocturnal dyspnea. Denies any pain currently. Review of Systems Review of Systems: All systems reviewed & are unremarkable except as noted in HPI & below Physical Exam Constitutional: well developed, + ill appearing and + thin; no acute distress Respiratory: no respiratory distress, no labored breathing, no retractions and does not use accessory muscles Auscultation: + diminished lung sounds (Bases bilaterally, right greater than left) and + rales (right mid lung field); no rhonchi and no wheezes Cardiovascular: Rate/Rhythm: + irregularly irregular Heart Sounds: normal S1 and normal S2; no murmur Vessels: no JVD Extremities: + edema (1-2+ bilateral pretibial edema) Gastrointestinal (Abdomen): Inspection/Auscultation: abdomen normal to inspection and normal bowel sounds; abdomen not distended Percussion/Palpation: abdomen soft; abdomen nontender, no guarding and abdomen not rigid Skin: no rashes Neurologic: CN's II-XI intact bilaterally and moves all extremities; no focal motor deficits Speech / Cognition: normal speech Motor/Sensory: no tremor Psychiatric: A+Ox3, euthymic affect Results & Data ([facility]) Vital Signs (Past 12 Hours) Vital Signs Temp Pulse Pulse Resp BP Pulse Ox 05/08/20 08:38 36.7 C 91 H 18 102/66 05/08/20 07:38 36.5 C 75 16 103/62 94 05/08/20 02:42 36.3 C L 88 18 123/78 95 05/08/20 02:13 96 H 05/08/20 00:03 36.6 C 80 18 107/56 L 98 (1) Metastatic cancer Area of secondary neoplastic involvement: unspecified site Qualified Code(s): C79.9 - Secondary malignant neoplasm of unspecified site
--- NOTE | 2020-05-08 11:45 | XRay Report ---
XR chest 2V PA/lateral HISTORY: follow pleural effusion COMPARISON: Chest 05/06/2020. FINDINGS: Slight improvement in the small to moderate right pleural effusion. A trace left pleural ef fusion remains unchanged. Right jugular Port-A-Cath remains at the distal SVC. No pneumothorax. The h eart remains mildly enlarged. There is perihilar interstitial and vascular thickening suggestive of m ild pulmonary edema. Right basilar densities persist. IMPRESSION: 1. Slight improvement in the small to moderate right pleural effusion. Right basilar densities persis t. 2. No change in the mild interstitial pulmonary edema. ACT 112: Negative or not required by law. Electronically signed by: Otf Aleman M.D. 05/08/2020 11:43 AM
--- NOTE | 2020-05-08 13:15 | Pulmonology Progress Note ---
Date of Service May 08, 2020 Assessment & Plan (1) Pleural effusion, right: Chest x-ray 05/06/2020 personally reviewed: Portable film, right-sided costophrenic angle is blunted, right-sided pleural effusion is appreciated, left cardiophrenic clean, minimal blunting of the left costophrenic angle could represent minimal left-sided pleural effusion. Right-sided Port-A-Cath. Echo 04/16/20: EF 55-60%, RVSP 50-60mmhg --Right-sided pleural effusion Patient had PE on 04/15/2020 with significant obstruction of the right main pulmonary artery Patient had some interstitial thickening on the right lower lobe at that time Possibility of a pulmonary infarct and resulting pleural effusion is a possibility. Patient has elevated WBC count which she had a since 04/15 could be from underlying cancer Patient does not present as if she is septic. Parapneumonic effusion can present similarly but low on differential Lastly given patient has stage IV cancer already, malignant right-sided pleural effusion also plays a role Patient does have protein calorie malnutrition and such patients to get pleural effusion but they are usually bilateral. Thoracentesis could be done in the patient. Risks and benefits of the procedure explained to the patient and the family. Family wants to wait couple of days to see how she responds to diuretics and then decide. --COPD with emphysema Inhaled bronchodilators -- Recent history of PE Diagnosed 04/15/2020 On therapeutic Lovenox Plan: In/out: -1 L Chest x-ray from today personally reviewed Right-sided pleural effusion still persists. Continue with diuresis. Recommend using nasal MRSA if nasal MRSA is negative can discontinue vancomycin. Got a message from and discussed with family as well. They are leaning towards conservative management right now did not want any thoracentesis. Would continue with diuresis. Recommend repeating chest x-ray on Monday or Monday. Pulmonary will follow peripherally. Call with any questions. Please note the above document was generated using voice recognition software. It may contain grammatical, syntax or spelling errors.Any formal questions or concerns about the content, text or information contained within the body of this dictation should be directly addressed to the provider for clarification. (2) Pulmonary emboli: Acute cor pulmonale presence: unspecified Chronicity: acute Pulmonary embolism type: other Qualified Code(s): I26.99 - Other pulmonary embolism without acute cor pulmonale (3) COPD with emphysema: Admission and Anticipated Discharge Date Admission Date: May 06, 2020 Subjective Patient seen and examined at bedside. No acute distress, no adverse events overnight. Denies any chest pain, shortness of breath is improved. No dizziness, no hematuria, no diarrhea, no hematochezia. Appetite improving. Review of Systems Review of Systems: All systems reviewed & are unremarkable except as noted in Subjective Physical Exam Physical Exam: Constitutional: No acute distress HEENT: EOMI, PERRLA Respiratory system: Decreased air entry bilaterally more decreased on the right side, positive crackles bilateral lower lobes, no wheeze, no rhonchi CVS: S1-S2 positive, no murmurs or gallops, irregular, right-sided port Abdomen: Soft, nontender, nondistended, positive bowel sounds x4 Extremities: +2 pulses bilaterally radialis/ dorsalis pedis, no cyanosis, +2 pitting edema bilateral lower extremity, right greater than left which is normal as per the family Neuro: Awake alert oriented x3 Psych: Normal mood and affect Skin: no rashes, warm and dry Lymphatic: no cervical or axillary lymphadenopathy Results & Data Results & Data ([facility]) Vital Signs (Past 12 Hours) Vital Signs Temp Pulse Pulse Resp BP Pulse Ox 05/08/20 08:38 36.7 C 91 H 18 102/66 05/08/20 07:38 36.5 C 75 16 103/62 94 05/08/20 02:42 36.3 C L 88 18 123/78 95 05/08/20 02:13 96 H 05/08/20 05:36 05/08/20 05:36 PG Care Time/CCT Total # of Minutes Spent Total Time Spent with Patient: Total time spent is greater than 50% in coordina tion of care (as documented) at patient's floor/unit and/or counseling patient: Coding Level of Care Code 46533 Subseq Hosp Care Lvl 3 Diagnoses Pleural effusion, right J90 Pulmonary emboli I26.99 Acute cor pulmonale presence: unspecified Chronicity: acute Pulmonary embolism type: other COPD with emphysema J43.9
[2020-05-08] MEDS: HEPARIN 100 UNIT/ML 5ML FLUSH FLUSH PRN (23:38)
[2020-05-09] MEDS: PIPERACILLIN/TAZOBACTAM 3.375 GM in DEXTROSE 5% 100 ML IV SCH ×3 (02:45→18:00)
[2020-05-09] MEDS ORDERED: VANCOMYCIN TROUGH ONE (08:30)
[2020-05-09] MEDS: HEPARIN 100 UNIT/ML 5ML FLUSH FLUSH PRN ×2 (08:36→14:33)
[2020-05-09 08:49] LABS: Eosinophils # (auto) 0.25 K/uL (0-0.5); Eosinophils % (auto) 1.8 %; Hematocrit (blood only) 33.5 % (37-47); Hemoglobin 10.2 g/dL (12.0-16.0); Immature Granulocytes # (auto) 0.05 K/uL (0.00-0.02); Immature Granulocytes % (auto) 0.4 %; Lymphocytes # (auto) 0.69 K/uL (1.2-3.4); Lymphocytes % (auto) 4.9 %; Mean Corpuscular Hemoglobin 27.6 pg (25-34); Mean Corpuscular Hgb Conc 30.4 g/dL (32-36); Mean Corpuscular Volume 90.8 fL (80-100); Mean Platelet Volume 10.1 fL (7.4-10.4); Monocytes # (auto) 1.03 K/uL (0.11-0.59); Monocytes % (auto) 7.3 %; Neutrophils # (auto) 12.12 K/uL (1.4-6.5); Neutrophils % (auto) 85.6 %; Platelet Count 169 K/uL (130-400); RDW Coefficient of Variation 29.4 % (11.5-14.5); RDW Standard Deviation 93.9 fL (36.4-46.3); Red Blood Count 3.69 M/uL (4.2-5.4); White Blood Count 14.14 K/uL (4.8-10.8)
[2020-05-09] MEDS: UMECLIDINIUM BROMIDE 62.5MCG/BLISTER 7 PUFFS/INHALER INH SCH (09:15)
[2020-05-09 09:16] LABS: Albumin Level 2.9 gm/dl (3.4-5.0); BUN Creatinine Ratio 31.5 (10-20); Calcium 9.1 mg/dl (8.5-10.1); Creatinine Clr Calc Pharmacy 49.5 ml/min; Est GFR (African American) 83.9; Est GFR (Non-African American) 72.4; Magnesium 1.9 mg/dl (1.8-2.4); Potassium 3.3 mmol/L (3.5-5.1)
[2020-05-09] MEDS: SENNA 8.6 MG TAB PO SCH (09:16)
[2020-05-09] MEDS: METOPROLOL TARTRATE 25 MG TAB PO SCH ×2 (09:16→21:41)
[2020-05-09] MEDS: POLYETHYLENE (MIRALAX) 17 GM PACK PO SCH ×2 (09:16→21:33)
[2020-05-09] MEDS: DOXYCYCLINE HYCLATE 100 MG CAP PO SCH ×2 (09:17→21:43)
[2020-05-09 09:19] LABS: Bilirubin,Total 1.3 mg/dl (0.2-1); Globulin 2.8 gm/dl (2.5-4.0); Phosphorus 2.5 mg/dl (2.5-4.9); Total Protein 5.7 gm/dl (6.4-8.2)
[2020-05-09] MEDS: ALBUMIN 25% 50 ML with FUROSEMIDE 40 MG IV SCH ×2 (09:21→21:24)
[2020-05-09] MEDS ORDERED: POTASSIUM CHLORIDE CRTAB 20 MEQ TABCR PO STA (09:37)
[2020-05-09 09:53] LABS: Anisocytosis Present; Poikilocytosis Present
--- NOTE | 2020-05-09 10:03 | Cardiology Progress Note ---
Date of Service May 09, 2020 Assessment & Plan (1) Acute right-sided congestive heart failure: (2) Hypoxia: (3) Bilateral pulmonary embolism: (4) Metastatic cancer: (5) Persistent atrial fibrillation: (6) Pleural effusion: (7) Protein calorie malnutrition: Continue IV Lasix, 40 mg twice daily. Follow daily weight, GFR, electrolytes, and fluid balance. Replace potassium as indicated. Transition to oral diuretic therapy in the next 24 to 48 hours. Remains in atrial fibrillation with adequate rate control. Continue amiodarone and metoprolol tartrate as previously ordered. Continue subcutaneous Lovenox twice daily. Admission and Anticipated Discharge Date Admission Date: May 06, 2020 Subjective Patient seen and examined at the bedside. Respiratory status improved. Edema resolving. Fluid balance negative approximately 700 cc over the past 24 hours. Renal function remained stable with mild hypokalemia. Telemetry demonstrates atrial fibrillation/flutter with heart rate averaging 80s to 90s. is present. Offers no additional concerns/complaints. Review of Systems Review of Systems: All systems reviewed & are unremarkable except as noted in HPI & below Physical Exam Constitutional: well developed, + ill appearing and + thin; no acute distress Respiratory: no respiratory distress, no labored breathing, no retractions and does not use accessory muscles Auscultation: + diminished lung sounds (Bases bilaterally, right greater than left) and + rales (right mid lung field); no rhonchi and no wheezes Cardiovascular: Rate/Rhythm: + irregularly irregular Heart Sounds: normal S1 and normal S2; no murmur Vessels: no JVD Extremities: + edema (1+ bilateral pedal and ankle edema) Gastrointestinal (Abdomen): Inspection/Auscultation: abdomen normal to inspection and normal bowel sounds; abdomen not distended Percussion/Palpation: abdomen soft; abdomen nontender, no guarding and abdomen not rigid Skin: no rashes Neurologic: CN's II-XI intact bilaterally and moves all extremities; no focal motor deficits Speech / Cognition: normal speech Motor/Sensory: no tremor Psychiatric: A+Ox3, euthymic affect Results & Data ([facility]) Vital Signs (Past 12 Hours) Vital Signs Temp Pulse Pulse Resp BP Pulse Ox 05/09/20 09:20 36.0 C L 98 H 20 97/65 L 96 05/09/20 07:27 36.5 C 91 H 18 96/71 L 94 05/09/20 07:14 82 05/09/20 02:44 36.3 C L 92 H 18 102/51 L 100 05/08/20 23:36 36.5 C 89 21 97/67 L 100 (1) Metastatic cancer Area of secondary neoplastic involvement: unspecified site Qualified Code(s): C79.9 - Secondary malignant neoplasm of unspecified site
[2020-05-09] MEDS: AMIODARONE 200 MG TAB PO SCH ×2 (10:23→21:42)
[2020-05-09] MEDS: ENOXAPARIN INJ 60 MG/0.6 ML SYR SQ SCH ×2 (10:40→21:48)
[2020-05-09] MEDS: MAGNESIUM OXIDE 400 MG TAB PO SCH (10:43)
[2020-05-09] MEDS: VANCOMYCIN HCL 1,000 MG in SODIUM CHLORIDE 0.9% 250 ML IV SCH (11:06)
--- NOTE | 2020-05-09 12:31 | Hospitalist Progress Note ---
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 status post 3 cycles of FOLFOX and Avastin -currently not on chemotherapy because of recent pulmonary embolism and on systemic anticoagulation with Lovenox -patient's oncologist is Alexandru Torres and also follows with colorectal neurological surgery teacher (2) Leukocytosis: -prior to this admission her white blood counts were elevated between 30K to 35K -unclear at this time whether leukocytosis from malignancy versus steroids versus possible infection -follow the WBC and blood cultures while on IV antibiotics -WBC 14 K on 05/09/2020, so far no growth to date in blood cultures, however IV Zosyn and IV Vancomycin appear to be driving down the WBC. MRSA swab of nose negative. possibly can discontinue Vancomycin at this time. renal function stable (3) Hypoxia: -currently on hold secondary to recent acute hospitalization for bilateral PE, HTN, HLD, PAF, anemia of chronic disease, left subclavian steal syndrome who presents to ED on 05/06/2020 secondary to shortness of breath x24 hours. -currently patient on 2 liters/min of supplementary oxygen at rest as of 05/07/2020 -try to titrate down to room air consistently based on oxygen saturation and r espiratory rate, remains on nasal cannula oxygen (4) Bilateral pulmonary embolism: -as per pulmonary consult because "Patient had PE on 04/15/2020 with signi ficant obstruction of the right main pulmonary artery; Patient had some interstitial thickening on the right lower lobe at that time; Possibility of a pulmonary infarct and resulting pleural effusion is a possibility" -has been on Lovenox 60 mg subcutaneous q12 hours, continue at this time (5) Pleural effusion, right: -the likely cause of current hypoxia from the right pleural effusion -patient has been empirically on IV Vancomycin and IV Zosyn in case any causes by a bacterial source and also IV Lasix with albumin if from cardiac component of from Hypoalbuminemia but pulmonary consult Dr. Diez believes the likely cause is from a pulmonary infarction -PA/Lateral X Ray ordered on 05/08/2020: Slight improvement in the small to moderate right pleural effusion. Right basilar densities persist. No change in the mild interstitial pulmonary edema. 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 and he is very reluctance about going forward with a thoracentesis because of concerns of pneumothorax and concerns of fluid re-accumulation even if the thoracentesis were performed and requests that patient's clinical respiratory symptoms be assessed and to current medications as above before any invasive procedures; he and family will base further decision making on thoracentesis if remains offered by pulmonary service depending on future lung imaging and clinical symptoms (6) Hypoalbuminemia: -the IV albumin with Lasix is improving the serum albumin numbers based on recent hospital labs on this admission, but this is a temporary measure (7) Protein calorie malnutrition: -single fold machine operator consult -Marinol 2.5 mg BID as trial in hospital to encourage more appetite but patient not currently taking (nursing documents that patient declining this medication) (8) Persistent atrial fibrillation: -metoprolol, and amiodarone -cardiology consult recommendations appreciated if any changes to medications -no chest pain symptoms, troponins are not elevated -On systemic anticoagulation (9) Anemia: -chronic anemia -since January 2020 hemoglobin as recorded by [facility] records that baselines generally between 9 to 10 (10) DVT prophylaxis: -on Lovenox 60 mg subcutaneous q12 hours because of pulmonary embolism Full Code Status Admission and Anticipated Discharge Date Admission Date: May 06, 2020 Subjective Patient seen and examined and sitting up in chair. She is about to eat the lunch. continues to be on same level nasal cannula oxygen as previous days. denies pain or other symptoms. patient's sons at bedside and one is an active orthopedic surgeon. Hospital course and plans were updated with family members Review of Systems Review of Systems: All systems reviewed & are unremarkable except as noted in Subjective Physical Exam Constitutional: + frail appearing and comfortable Eyes: PERRL, conjunctivae normal, anicteric sclerae EOM intact bilaterally ENMT: external ear and nose normal, oropharynx normal Neck: normal visual inspection Respiratory: normal respiratory effort Cardiovascular: Rate/Rhythm: regular rate Gastrointestinal (Abdomen): normal bowel sounds, soft, nontender, no hepatosplenomegaly Musculoskeletal: Head/Neck/Chest: normocephalic and head atraumatic Neurologic: PERRL, EOMI, accommodation nl, no face palsy, no dysarthria CN's II-XI intact bilaterally Psychiatric: A+Ox3, euthymic affect Results & Data Results & Data ([facility]) Vital Signs (Past 12 Hours) Vital Signs Temp Pulse Pulse Resp BP Pulse Ox 05/09/20 11:39 36.5 C 104 H 18 104/70 98 05/09/20 10:44 36.1 C L 99 H 22 119/77 98 05/09/20 09:20 36.0 C L 98 H 20 97/65 L 96 05/09/20 07:27 36.5 C 91 H 18 96/71 L 94 05/09/20 07:14 82 05/09/20 02:44 36.3 C L 92 H 18 102/51 L 100 (1) Leukocytosis Leukocytosis type: unspecified Qualified Code(s): D72.829 - Elevated white blood cell count, unspecified
[2020-05-10] MEDS: PIPERACILLIN/TAZOBACTAM 3.375 GM in DEXTROSE 5% 100 ML IV SCH ×3 (02:06→18:05)
[2020-05-10 06:31] LABS: Eosinophils % (auto) 3.8 %; Hematocrit (blood only) 29.4 % (37-47); Hemoglobin 9.1 g/dL (12.0-16.0); Immature Granulocytes # (auto) 0.05 K/uL (0.00-0.02); Immature Granulocytes % (auto) 0.4 %; Lymphocytes # (auto) 1.11 K/uL (1.2-3.4); Lymphocytes % (auto) 8.4 %; Mean Corpuscular Hemoglobin 27.8 pg (25-34); Mean Corpuscular Volume 89.9 fL (80-100); Mean Platelet Volume 10.7 fL (7.4-10.4); Monocytes # (auto) 1.12 K/uL (0.11-0.59); Monocytes % (auto) 8.5 %; Neutrophils # (auto) 10.46 K/uL (1.4-6.5); Neutrophils % (auto) 78.9 %; Platelet Count 188 K/uL (130-400); RDW Standard Deviation 93.1 fL (36.4-46.3); Red Blood Count 3.27 M/uL (4.2-5.4); White Blood Count 13.24 K/uL (4.8-10.8)
[2020-05-10 07:01] LABS: Albumin Level 2.8 gm/dl (3.4-5.0); BUN Creatinine Ratio 35.9 (10-20); Calcium 9.3 mg/dl (8.5-10.1); Creatinine Clr Calc Pharmacy 60.5 ml/min; Est GFR (African American) 97.5; Est GFR (Non-African American) 84.1; Magnesium 1.8 mg/dl (1.8-2.4); Potassium 3.5 mmol/L (3.5-5.1)
[2020-05-10 07:04] LABS: Albumin Globulin Ratio 1.1 (0.9-2); Bilirubin,Total 1.2 mg/dl (0.2-1); Globulin 2.5 gm/dl (2.5-4.0); Total Protein 5.3 gm/dl (6.4-8.2)
[2020-05-10] MEDS: POLYETHYLENE (MIRALAX) 17 GM PACK PO SCH ×2 (07:04→22:20)
[2020-05-10 07:12] LABS: Anisocytosis Present
[2020-05-10] MEDS ORDERED: POTASSIUM CHLORIDE CRTAB 20 MEQ TABCR PO STA (07:24)
[2020-05-10] MEDS: SENNA 8.6 MG TAB PO SCH (07:28)
--- NOTE | 2020-05-10 08:17 | XRay Report ---
SINGLE VIEW CHEST CLINICAL HISTORY: Pleural effusion. FINDINGS: An AP, portable, upright chest radiograph is compared to study dated 05/08/2020 and correla addis with chest CT dated 01/30/2020. The examination is degraded by portable technique and patient rotat ion. A right-sided central venous infusion port is unchanged in position. The heart is enlarged notin g atherosclerotic calcification of the thoracic aorta. Pulmonary vascular congestion persists. Emphys marcelle and chronic interstitial thickening are similar to previous. There is a layering right pleural ef fusion with associated right basilar consolidation. This is similar in appearance to previous. Trace pleural effusion is seen on the left. Foci of scarring/atelectasis are present throughout both lungs. No pneumothorax is seen. The skeletal structures are osteopenic. The bony thorax is grossly intact. Degenerative change is noted in the shoulders. IMPRESSION: 1. Cardiomegaly and emphysema with evidence of congestive failure. This has modestly improved from pr evious. 2. Layering right pleural effusion with associated right basilar consolidation. This is unchanged. 3. Trace pleural effusion is seen on the left. ACT 112: Negative or not required by law. Electronically signed by: José Luis Mesa M.D. 05/10/2020 8:16 AM
[2020-05-10] MEDS: METOPROLOL TARTRATE 25 MG TAB PO SCH ×2 (08:45→22:18)
[2020-05-10] MEDS: AMIODARONE 200 MG TAB PO SCH ×2 (08:46→22:19)
[2020-05-10] MEDS: DOXYCYCLINE HYCLATE 100 MG CAP PO SCH ×2 (08:47→22:18)
[2020-05-10] MEDS: UMECLIDINIUM BROMIDE 62.5MCG/BLISTER 7 PUFFS/INHALER INH SCH (08:47)
--- NOTE | 2020-05-10 09:06 | Hospitalist Progress Note ---
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 status post 3 cycles of FOLFOX and Avastin -currently not on chemotherapy because of recent pulmonary embolism and on systemic anticoagulation with Lovenox -patient's oncologist is Alexandru Torres and also follows with colorectal language specialist (2) Leukocytosis: -prior to this admission her white blood counts were elevated between 30K to 35K -unclear at this time whether leukocytosis from malignancy versus steroids versus possible infection -follow the WBC and blood cultures while on IV antibiotics -WBC 14 K on 05/09/2020, so far no growth to date in blood cultures, however IV Zosyn and IV Vancomycin appear to be driving down the WBC. MRSA swab of nose negative. possibly can discontinue Vancomycin at this time. renal function stable (3) Hypoxia: -currently on hold secondary to recent acute hospitalization for bilateral PE, HTN, HLD, PAF, anemia of chronic disease, left subclavian steal syndrome who presents to ED on 05/06/2020 secondary to shortness of breath x24 hours. -currently patient on 2 liters/min of supplementary oxygen at rest as of 05/07/2020 -try to titrate down to room air consistently based on oxygen saturation and r espiratory rate, remains on nasal cannula oxygen (4) Bilateral pulmonary embolism: -as per pulmonary consult because "Patient had PE on 04/15/2020 with signi ficant obstruction of the right main pulmonary artery; Patient had some interstitial thickening on the right lower lobe at that time; Possibility of a pulmonary infarct and resulting pleural effusion is a possibility" -on Lovenox 60 mg subcutaneous q12 hours because of pulmonary embolism; but is held for now while awaiting pulmonary evaluation on whether thoracentesis should be done on this admission (5) Pleural effusion, right: -the likely cause of current hypoxia from the right pleural effusion -patient has been empirically on IV Vancomycin and IV Zosyn in case any causes by a bacterial source and also IV Lasix with albumin if from cardiac component of from Hypoalbuminemia but pulmonary consult Dr. Diez believes the likely cause is from a pulmonary infarction -PA/Lateral X Ray ordered on 05/08/2020: Slight improvement in the small to moderate right pleural effusion. Right basilar densities persist. No change in the mild interstitial pulmonary edema. -patient given additional oral potassium while on IV lasix with albumin -05/10/2020 Patient seen and examined at bedside on 2 liters/min nasal cannula. have asked nurse to see if titrating down the supplementary to watch how the O2 satudation is. CXR on 05/10/2020. Discussed with pulmonary Dr. Coe whether any role at this time for thoracentesis. Dr. Coe will evaluate - Lovenox q12 hours on hold for now pending the assessment (6) Hypoalbuminemia: -the IV albumin with Lasix is improving the serum albumin numbers based on recent hospital labs on this admission, but this is a temporary measure (7) Protein calorie malnutrition: -physicist cryogenics consult -Marinol 2.5 mg BID as trial in hospital for appetite as needed (8) Persistent atrial fibrillation: -metoprolol, and amiodarone -cardiology consult recommendations appreciated if any changes to medications -no chest pain symptoms, troponins are not elevated (9) Anemia: -chronic anemia -since January 2020 hemoglobin as recorded by [facility] records that baselines generally between 9 to 10 (10) DVT prophylaxis: -on Lovenox 60 mg subcutaneous q12 hours because of pulmonary embolism; but is held for now while awaiting pulmonary evaluation on whether thoracentesis should be done on this admission Full Code Status Admission and Anticipated Discharge Date Admission Date: May 06, 2020 Subjective Patient seen and examined at bedside on 2 liters/min nasal cannula. have asked nurse to see if titrating down the supplementary to watch how the O2 satudation is. CXR on 05/10/2020. Discussed with pulmonary Dr. Coe whether any role at this time for thoracentesis. Dr. Coe will evaluate - Lovenox q12 hours on hold for now pending the assessment patient comfortable. no chest pain. no palpitations.no vomiting. no dizziness. she has been able to eat the food Review of Systems Review of Systems: All systems reviewed & are unremarkable except as noted in Subjective Physical Exam Constitutional: comfortable Eyes: PERRL, conjunctivae normal, anicteric sclerae EOM intact bilaterally ENMT: external ear and nose normal, oropharynx normal Neck: normal visual inspection Respiratory: normal respiratory effort Cardiovascular: Rate/Rhythm: regular rate Gastrointestinal (Abdomen): normal bowel sounds, soft, nontender, no hepatosplenomegaly Musculoskeletal: Head/Neck/Chest: normocephalic and head atraumatic Neurologic: PERRL, EOMI, accommodation nl, no face palsy, no dysarthria CN's II-XI intact bilaterally Psychiatric: A+Ox3, euthymic affect Results & Data Results & Data ([facility]) Vital Signs (Past 12 Hours) Vital Signs Temp Pulse Pulse Resp BP Pulse Ox 05/10/20 07:34 36.2 C L 66 18 105/71 94 05/10/20 03:11 36.3 C L 98 H 18 104/68 95 05/09/20 23:35 36.3 C L 61 17 95/54 L 97 05/09/20 23:07 84 05/09/20 21:40 89 101/67 (1) Leukocytosis Leukocytosis type: unspecified Qualified Code(s): D72.829 - Elevated white blood cell count, unspecified
[2020-05-10] MEDS: ALBUMIN 25% 50 ML with FUROSEMIDE 40 MG IV SCH ×2 (09:39→22:21)
--- NOTE | 2020-05-10 10:11 | Pulmonology Progress Note ---
Date of Service May 10, 2020 Assessment & Plan (1) Hypoxic: Impression: 79-year-old female with stage IV metastatic colon cancer and recent diagnosis of acute PE April 15, 2020 admitted with shortness of breath and found to have right-sided effusion. She is much better on diuretics now. Chest x-ray demonstrates persistent opacity at the right lung base consistent with persistent small effusion. Recommendations: 1. Pleural effusion: Had a long discussion with the patient and her at the bedside. We reviewed the films together. The effusion does not appear to be significantly decreased and the patient currently is asymptomatic. I discussed that the reasons to sample of fluid would primarily be to improve symptoms and the patient is relatively asymptomatic currently. She is not bothered by wearing oxygen and would be okay to go home on oxygen. It is unclear if draining the fluid would resolve her hypoxemia or not. The family currently is leaning away from any invasive procedures currently given her symptomatic improvement with diuresis. It seems reasonable. I did discuss benefits of short-term as well as long-term management of pleural effusion to in clude serial thoracentesis and potential Pleurx catheter placement if this were to be malignant. It would not change her prognosis or management with regards to her cancer. After careful consideration, the patient and her family have elected to pursue continued clinical observation at this point in time. I advised them that should her condition worsen, thoracentesis could be attempted with ultrasound relatively safely. I also presented the option of having this done in the outpatient setting should her symptoms progress after going home. They are comfortable with proceeding as above. Seems reasonable to continue anticoagulation for now. 2. PE: Continue Lovenox. As there are no plans for thoracentesis currently, okay to resume Lovenox. 3. Hypoxemia: Continue supplemental oxygen titrated to keep saturations at or above 88%. The patient may require assessment for supplemental oxygen prior to dismissal from the hospital. Would be happy to see her in the pulmonary clinic for long-term management of the effusion if needed. Feel free to contact us if we can be of additional assistance. (2) Pleural effusion: (3) Pulmonary emboli: Acute cor pulmonale presence: unspecified Chronicity: acute Pulmonary embolism type: other Qualified Code(s): I26.99 - Other pulmonary embolism without acute cor pulmonale Admission and Anticipated Discharge Date Admission Date: May 06, 2020 Subjective Met with patient and at bedside. She denies any respiratory problems. She is tolerating the oxygen well and states her breathing is fine. She denies any chest tightness or pain. No cough. She does not feel short of breath at all. No orthopnea. She is doing well clinically. Review of Systems Review of Systems: Unchanged from prior Physical Exam Constitutional: WD/WN, vitals as above Neck: trachea midline, no thyromegaly Respiratory: normal respiratory effort Decreased breath sounds right lung base with dullness to percussion Cardiovascular: RRR, no murmur, no edema Gastrointestinal (Abdomen): normal bowel sounds, soft, nontender, no hepatosplenomegaly Musculoskeletal: Extremities: extremities normal to inspection Skin: no rashes, warm and dry Neurologic: Nonfocal exam Lymphatic: no cervical lymphadenopathy Results & Data Results & Data ([facility]) Vital Signs (Past 12 Hours) Vital Signs Temp Pulse Pulse Resp BP Pulse Ox 05/10/20 07:34 36.2 C L 66 18 105/71 94 05/10/20 03:11 36.3 C L 98 H 18 104/68 95 05/09/20 23:35 36.3 C L 61 17 95/54 L 97 05/09/20 23:07 84 Laboratory Results 05/10/20 05:57 05/10/20 05:57 Diagnostic Findings Chest x-ray today was reviewed. Small right-sided effusion noted. Not significantly changed from 2 days ago PG Care Time/CCT Total # of Minutes Spent Total Time Spent with Patient: Total time spent is greater than 50% in coordination of care (as documented) at patient's floor/unit and/or counseling patient: Coding Level of Care Code 00583 Subseq Hosp Care Lvl 2 Diagnoses Hypoxic R09.02 Pleural effusion J90 Pulmonary emboli I26.99 Acute cor pulmonale presence: unspecified Chronicity: acute Pulmonary embolism type: other
[2020-05-10] MEDS ORDERED: ENOXAPARIN INJ 60 MG/0.6 ML SYR SQ ONE (11:12)
[2020-05-10] MEDS: MAGNESIUM OXIDE 400 MG TAB PO SCH ×2 (11:35→16:45)
--- NOTE | 2020-05-10 12:51 | Cardiology Progress Note ---
Date of Service May 10, 2020 Assessment & Plan (1) Acute right-sided congestive heart failure: (2) Hypoxia: (3) Bilateral pulmonary embolism: (4) Metastatic cancer: (5) Persistent atrial fibrillation: (6) Pleural effusion: (7) Protein calorie malnutrition: Continue IV Lasix, 40 mg twice daily. Follow daily weight, GFR, electrolytes, and fluid balance. Replace potassium as indicated. Consider transition to oral diuretic therapy in the next 24 to 48 hours pending clinical course. Remains in atrial fibrillation with adequate rate control. Continue amiodarone and metoprolol tartrate as previously ordered. Continue subcutaneous Lovenox twice daily. Continue conservative medical management at this time. Appreciate pulmonary medicine input. Admission and Anticipated Discharge Date Admission Date: May 06, 2020 Subjective Patient seen and examined the bedside. Respiratory status improved. Edema controlled. Denies chest pain or palpitations. Daughter present at bedside. She offers no additional concerns/complaints at this time. Review of Systems Review of Systems: All systems reviewed & are unremarkable except as noted in HPI & below Physical Exam Constitutional: well developed, + ill appearing and + thin; no acute distress Respiratory: no respiratory distress, no labored breathing, no retractions and does not use accessory muscles Auscultation: + diminished lung sounds (Bases bilaterally, right greater than left) and + rales (right mid lung field); no rhonchi and no wheezes Cardiovascular: Rate/Rhythm: + irregularly irregular Heart Sounds: normal S1 and normal S2; no murmur Vessels: no JVD Extremities: + edema (1+ bilateral pedal and ankle edema) Gastrointestinal (Abdomen): Inspection/Auscultation: abdomen normal to inspection and normal bowel sounds; abdomen not distended Percussion/Palpation: abdomen soft; abdomen nontender, no guarding and abdomen not rigid Skin: no rashes Neurologic: CN's II-XI intact bilaterally and moves all extremities; no focal motor deficits Speech / Cognition: normal speech Motor/Sensory: no tremor Psychiatric: A+Ox3, euthymic affect Results & Data ([facility]) Vital Signs (Past 12 Hours) Vital Signs Temp Pulse Resp BP Pulse Ox Pulse Ox Pulse Ox 05/10/20 12:05 85 L 93 05/10/20 11:35 36.5 C 83 18 104/68 97 05/10/20 07:34 36.2 C L 66 18 105/71 94 05/10/20 03:11 36.3 C L 98 H 18 104/68 95 (1) Metastatic cancer Area of secondary neoplastic involvement: unspecified site Qualified Code(s): C79.9 - Secondary malignant neoplasm of unspecified site
[2020-05-10] MEDS ORDERED: MAGNESIUM SULFATE / D5W 1 GM/100 ML BAG IV ONE (16:00)
[2020-05-10] MEDS: ENOXAPARIN INJ 60 MG/0.6 ML SYR SQ SCH (22:21)
[2020-05-11] MEDS: PIPERACILLIN/TAZOBACTAM 3.375 GM in DEXTROSE 5% 100 ML IV SCH ×2 (02:15→08:32)
[2020-05-11 06:33] LABS: Eosinophils # (auto) 0.55 K/uL (0-0.5); Eosinophils % (auto) 4.5 %; Hematocrit (blood only) 28.1 % (37-47); Hemoglobin 8.5 g/dL (12.0-16.0); Immature Granulocytes # (auto) 0.04 K/uL (0.00-0.02); Immature Granulocytes % (auto) 0.3 %; Lymphocytes # (auto) 1.09 K/uL (1.2-3.4); Lymphocytes % (auto) 8.8 %; Mean Corpuscular Hemoglobin 27.3 pg (25-34); Mean Corpuscular Hgb Conc 30.2 g/dL (32-36); Mean Corpuscular Volume 90.4 fL (80-100); Mean Platelet Volume 10.2 fL (7.4-10.4); Monocytes # (auto) 1.02 K/uL (0.11-0.59); Monocytes % (auto) 8.3 %; Neutrophils # (auto) 9.65 K/uL (1.4-6.5); Neutrophils % (auto) 78.1 %; Platelet Count 186 K/uL (130-400); RDW Coefficient of Variation 28.5 % (11.5-14.5); Red Blood Count 3.11 M/uL (4.2-5.4); White Blood Count 12.35 K/uL (4.8-10.8)
[2020-05-11 07:03] LABS: Albumin Level 2.8 gm/dl (3.4-5.0); BUN Creatinine Ratio 27.8 (10-20); Calcium 9.1 mg/dl (8.5-10.1); Creatinine Clr Calc Pharmacy 45.9 ml/min; Est GFR (African American) 76.6; Est GFR (Non-African American) 66.1; Magnesium 2.1 mg/dl (1.8-2.4); Potassium 3.2 mmol/L (3.5-5.1)
[2020-05-11 07:06] LABS: Albumin Globulin Ratio 1.1 (0.9-2); Anisocytosis Present; Globulin 2.6 gm/dl (2.5-4.0); Target Cells 1+; Total Protein 5.4 gm/dl (6.4-8.2)
[2020-05-11] MEDS: DOXYCYCLINE HYCLATE 100 MG CAP PO SCH (08:34)
[2020-05-11] MEDS: SENNA 8.6 MG TAB PO SCH (08:34)
[2020-05-11] MEDS: MAGNESIUM OXIDE 400 MG TAB PO SCH (08:34)
[2020-05-11] MEDS: AMIODARONE 200 MG TAB PO SCH ×2 (08:34→20:09)
[2020-05-11] MEDS: UMECLIDINIUM BROMIDE 62.5MCG/BLISTER 7 PUFFS/INHALER INH SCH (08:35)
[2020-05-11] MEDS: METOPROLOL TARTRATE 25 MG TAB PO SCH ×3 (08:35→20:07)
[2020-05-11] MEDS: POLYETHYLENE (MIRALAX) 17 GM PACK PO SCH ×2 (08:44→20:09)
[2020-05-11] MEDS: ALBUMIN 25% 50 ML with FUROSEMIDE 40 MG IV SCH (08:53)
[2020-05-11] MEDS: ENOXAPARIN INJ 60 MG/0.6 ML SYR SQ SCH ×2 (08:56→20:26)
[2020-05-11] MEDS ORDERED: POTASSIUM CHLORIDE CRTAB 20 MEQ TABCR PO STA (09:11)
--- NOTE | 2020-05-11 09:36 | Hospitalist Progress Note ---
Date of Service May 11, 2020 Assessment & Plan (1) Colon cancer metastasized to liver: (Stage IV colorectal cancer) -This is an 79-year-old female who has significant past medical history of stage IV metastatic colorectal cancer to liver status post 3 cycles of FOLFOX and Avastin -currently not on chemotherapy because of recent pulmonary embolism and on systemic anticoagulation with Lovenox -patient's oncologist is Alexandru Torres and also follows with colorectal clinical review specialist (2) Leukocytosis: -prior to this admission her white blood counts were elevated between 30K to 35K -unclear whether leukocytosis from malignancy versus previous Neulasta as outpatient vs steroids versus possible infection -follow the WBC and blood cultures while on IV antibiotics -WBC 14 K on 05/09/2020, so far no growth to date in blood cultures, however IV Zosyn and IV Vancomycin appear to be driving down the WBC. MRSA swab of nose negative. Vancomycin discontinued -WBC 12K on 05/11/2020; continues to be afebrile. IV Zosyn course of 5 days given. discussed with patient and her that patient has been afebrile and the pleural effusions is suspected to be from non-infectious causes. (3) Hypoxia: -currently on hold secondary to recent acute hospitalization for bilateral PE, HTN, HLD, PAF, anemia of chronic disease, left subclavian steal syndrome who presents to ED on 05/06/2020 secondary to shortness of breath x24 hours. -patient's supplementary oxygen has not been more than 2 liters/min when at rest on this hospital stay -2 step test ordered (4) Bilateral pulmonary embolism: -as per pulmonary consult because "Patient had PE on 04/15/2020 with significant obstruction of the right main pulmonary artery; Patient had some interstitial thickening on the right lower lobe at that time; Possibility of a pulmonary infarct and resulting pleural effusion is a possibility" -on Lovenox 60 mg subcutaneous q12 hours because of pulmonary embolism -the hemoglobin dropped marginally to 8.5 on 05/11/2020 but this could also be due to hospital phlebotomy for blood work when on IV diuretics and IV antibiotics (5) Pleural effusion, right: -the likely cause of current hypoxia from the right pleural effusion -patient has been empirically on IV Vancomycin and IV Zosyn in case any causes by a bacterial source and also IV Lasix with albumin if from cardiac component of from Hypoalbuminemia but pulmonary consult Dr. Diez believes the likely cause is from a pulmonary infarction -PA/Lateral X Ray ordered on 05/08/2020: Slight improvement in the small to moderate right pleural effusion. Right basilar densities persist. No change in the mild interstitial pulmonary edema. -patient given additional oral potassium while on IV lasix with albumin -05/10/2020 patient and her family declined thoracentesis with pulmonary Dr. Coe, continue on IV Zosyn with 40mg IV Lasix with albumin BID -discussed with cardiology Dr. Boyle and he recommends to transition from IV Lasix with albumin to oral torsemide 10 mg daily. (6) Hypoalbuminemia: -the IV albumin with Lasix on this admission has improved the serum albumin numbers based on recent hospital labs on this admission, but this is a temporary measure (7) Protein calorie malnutrition: -two needle machine operator consult -Marinol 2.5 mg BID as trial in hospital for appetite as needed -patient appears to be eating the hospital food with or without Marinol (8) Persistent atrial fibrillation: -continue home dose metoprolol, and amiodarone (9) Anemia: -chronic anemia -since January 2020 hemoglobin as recorded by [facility] records that baselines generally between 9 to 10 -the hemoglobin dropped marginally to 8.5 on 05/11/2020 but this could also be due to hospital phlebotomy for blood work when on IV diuretics and IV antibiotics (10) DVT prophylaxis: -on Lovenox 60 mg subcutaneous q12 hours because of pulmonary embolism Full Code Status Social History: who is former [employer] surgeon helps patient make medical decisions. other family members in medical field include a son who is a current practicing orthopedic surgeon Admission and Anticipated Discharge Date Admission Date: May 06, 2020 Subjective patient on supplementary oxygen. no acute respiratory distress. no leg edema. no acute pain. discussed with family at bedside and her over the phone about hospitalist / cardiology evaluations to date. further family discussions to take place as far as patient hospital disposition. but as per nurse, patient's family is leaning towards further monitoring overnight 2 step test is ordered. Review of Systems Review of Systems: All systems reviewed & are unremarkable except as noted in Subjective Physical Exam Constitutional: comfortable Eyes: PERRL, conjunctivae normal, anicteric sclerae EOM intact bilaterally ENMT: external ear and nose normal, oropharynx normal Neck: normal visual inspection Respiratory: normal respiratory effort (right lower lung jesus with diminshed breath sounds compared to left) Cardiovascular: Rate/Rhythm: regular rate Gastrointestinal (Abdomen): normal bowel sounds, soft, nontender, no hepatosplenomegaly Musculoskeletal: Head/Neck/Chest: normocephalic and head atraumatic Neurologic: PERRL, EOMI, accommodation nl, no face palsy, no dysarthria CN's II-XI intact bilaterally Psychiatric: A+Ox3, euthymic affect Results & Data Results & Data ([facility]) Vital Signs (Past 12 Hours) Vital Signs Temp Pulse Pulse Resp BP Pulse Ox 05/11/20 07:36 73 18 101/66 99 05/11/20 07:33 78 05/11/20 02:51 36.5 C 83 17 99/62 L 99 05/11/20 00:44 88 05/10/20 22:29 36.6 C 98 H 17 91/58 L 98 (1) Leukocytosis Leukocytosis type: unspecified Qualified Code(s): D72.829 - Elevated white blood cell count, unspecified
--- NOTE | 2020-05-11 09:43 | Cardiology Progress Note ---
Date of Service May 11, 2020 Assessment & Plan (1) Acute right-sided congestive heart failure: (2) Hypoxia: (3) Bilateral pulmonary embolism: (4) Metastatic cancer: (5) Persistent atrial fibrillation: (6) Pleural effusion: (7) Protein calorie malnutrition: Discontinue IV diuretic therapy. Transition to torsemide 10 mg daily. Follow daily weight, GFR, electrolytes, and fluid balance. Replace potassium as indicated. Remains in atrial fibrillation with adequate rate control. Continue amiodarone and metoprolol tartrate as previously ordered. Continue subcutaneous Lovenox twice daily. Continue conservative medical management at this time. Appreciate pulmonary medicine input. Admission and Anticipated Discharge Date Admission Date: May 06, 2020 Subjective Patient seen and examined at the bedside. Denies chest pain or unusual shortness of breath. Lower extremity edema is stable. Tolerating diet and medication. Telemetry demonstrates atrial fibrillation with fair rate control. She offers no new concerns/complaints this time. Review of Systems Review of Systems: All systems reviewed & are unremarkable except as noted in HPI & below Physical Exam Constitutional: well developed, + ill appearing and + thin; no acute distress Respiratory: no respiratory distress, no labored breathing, no retractions and does not use accessory muscles Auscultation: + diminished lung sounds (Bases bilaterally, right greater than left) and + rales (right mid lung field); no rhonchi and no wheezes Cardiovascular: Rate/Rhythm: + irregularly irregular Heart Sounds: normal S1 and normal S2; no murmur Vessels: no JVD Extremities: + edema (1+ bilateral pedal and ankle edema) Gastrointestinal (Abdomen): Inspection/Auscultation: abdomen normal to inspection and normal bowel sounds; abdomen not distended Percussion/Palpation: abdomen soft; abdomen nontender, no guarding and abdomen not rigid Skin: no rashes Neurologic: CN's II-XI intact bilaterally and moves all extremities; no focal motor deficits Speech / Cognition: normal speech Motor/Sensory: no tremor Psychiatric: A+Ox3, euthymic affect Results & Data ([facility]) Vital Signs (Past 12 Hours) Vital Signs Temp Pulse Pulse Resp BP Pulse Ox 05/11/20 07:36 73 18 101/66 99 05/11/20 07:33 78 05/11/20 02:51 36.5 C 83 17 99/62 L 99 05/11/20 00:44 88 05/10/20 22:29 36.6 C 98 H 17 91/58 L 98 (1) Metastatic cancer Area of secondary neoplastic involvement: unspecified site Qualified Code(s): C79.9 - Secondary malignant neoplasm of unspecified site
[2020-05-11] MEDS ORDERED: SODIUM CHLORIDE 0.9% 1000ML 250 ML IV ONE (15:33)
[2020-05-11] MEDS ORDERED: SODIUM CHLORIDE 0.9% 500 ML IV SCH (19:45)
[2020-05-12 06:49] LABS: Eosinophils # (auto) 0.38 K/uL (0-0.5); Eosinophils % (auto) 3.1 %; Hemoglobin 8.7 g/dL (12.0-16.0); Immature Granulocytes # (auto) 0.05 K/uL (0.00-0.02); Immature Granulocytes % (auto) 0.4 %; Lymphocytes # (auto) 1.24 K/uL (1.2-3.4); Lymphocytes % (auto) 10.2 %; Mean Corpuscular Hemoglobin 27.9 pg (25-34); Mean Corpuscular Hgb Conc 31.1 g/dL (32-36); Mean Corpuscular Volume 89.7 fL (80-100); Monocytes # (auto) 0.72 K/uL (0.11-0.59); Neutrophils # (auto) 9.71 K/uL (1.4-6.5); Neutrophils % (auto) 80.3 %; Platelet Count 187 K/uL (130-400); RDW Coefficient of Variation 28.6 % (11.5-14.5); RDW Standard Deviation 91.4 fL (36.4-46.3); Red Blood Count 3.12 M/uL (4.2-5.4)
[2020-05-12 07:14] LABS: BUN Creatinine Ratio 31.2 (10-20); Calcium 8.7 mg/dl (8.5-10.1); Creatinine Clr Calc Pharmacy 50.1 ml/min; Est GFR (African American) 85.3; Est GFR (Non-African American) 73.6; Magnesium 2.2 mg/dl (1.8-2.4); Potassium 3.1 mmol/L (3.5-5.1)
[2020-05-12 07:15] LABS: Phosphorus 2.3 mg/dl (2.5-4.9)
[2020-05-12 07:18] LABS: Anisocytosis Present; Target Cells 1+
[2020-05-12] MEDS ORDERED: MAGNESIUM OXIDE 400 MG TAB PO SCH (07:30)
[2020-05-12] MEDS: METOPROLOL TARTRATE 25 MG TAB PO SCH (08:24)
[2020-05-12] MEDS: UMECLIDINIUM BROMIDE 62.5MCG/BLISTER 7 PUFFS/INHALER INH SCH (08:27)
[2020-05-12] MEDS: SENNA 8.6 MG TAB PO SCH (08:27)
[2020-05-12] MEDS: AMIODARONE 200 MG TAB PO SCH (08:29)
[2020-05-12] MEDS: POLYETHYLENE (MIRALAX) 17 GM PACK PO SCH (08:59)
[2020-05-12] MEDS: ENOXAPARIN INJ 60 MG/0.6 ML SYR SQ SCH (09:00)
[2020-05-12] MEDS ORDERED: POTASSIUM CHLORIDE CRTAB 20 MEQ TABCR PO SCH (09:00)
[2020-05-12] MEDS ORDERED: TORSEMIDE 10 MG TAB PO SCH (09:00)
[2020-05-12] MEDS ORDERED: POTASSIUM CHLORIDE CRTAB 20 MEQ TABCR PO ONE (10:15)
--- NOTE | 2020-05-12 11:33 | Cardiology Progress Note ---
Date of Service May 12, 2020 Assessment & Plan (1) Acute right-sided congestive heart failure: (2) Hypoxia: (3) Bilateral pulmonary embolism: (4) Metastatic cancer: (5) Persistent atrial fibrillation: (6) Pleural effusion: (7) Protein calorie malnutrition: Recommend addition of torsemide 10 mg daily at discharge. Repeat basic metabolic panel in the outpatient setting in 1 week. Continue potassium supplementation, 20 mEq daily. Remains in atrial fibrillation with fair rate control. Continue amiodarone and metoprolol tartrate as previously ordered. Continue subcutaneous Lovenox twice daily. Outpatient cardiology follow-up in 1 week. Patient has cardiology appointment scheduled 05/19/[address] Boykin. Admission and Anticipated Discharge Date Admission Date: May 06, 2020 Subjective Patient seen and examined the bedside. Denies chest pain or unusual shortness of breath. Daughter is present today. Tolerating diet and medications. IV diuretic therapy discontinued. Mild hypokalemia noted this a.m. Patient offers no concerns/complaints. Review of Systems Review of Systems: All systems reviewed & are unremarkable except as noted in HPI & below Physical Exam Constitutional: well developed, + ill appearing and + thin; no acute distress Respiratory: no respiratory distress, no labored breathing, no retractions and does not use accessory muscles Auscultation: + diminished lung sounds (Right base); no rales, no rhonchi and no wheezes Cardiovascular: Rate/Rhythm: + irregularly irregular Heart Sounds: normal S1 and normal S2; no murmur Vessels: no JVD Extremities: + edema (1+ bilateral pedal and ankle edema) Gastrointestinal (Abdomen): Inspection/Auscultation: abdomen normal to i nspection and normal bowel sounds; abdomen not distended Percussion/Palpation: abdomen soft; abdomen nontender, no guarding and abdomen not rigid Skin: no rashes Neurologic: CN's II-XI intact bilaterally and moves all extremities; no focal motor deficits Speech / Cognition: normal speech Motor/Sensory: no tremor Psychiatric: A+Ox3, euthymic affect Results & Data ([facility]) Vital Signs (Past 12 Hours) Vital Signs Temp Pulse Resp BP Pulse Ox 05/12/20 11:25 36.5 C 100 H 18 103/63 100 05/12/20 07:22 36.4 C L 94 H 18 111/66 92 05/12/20 03:26 36.5 C 60 19 96/61 L 95 05/12/20 01:32 91 H 96/54 L (1) Metastatic cancer Area of secondary neoplastic involvement: unspecified site Qualified Code(s): C79.9 - Secondary malignant neoplasm of unspecified site
--- NOTE | 2020-05-12 15:41 | Discharge Summary ---
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 who is retired general surgeon is at bedside. Of significance patient recently hospitalized 04/15 to 04/20 secondary to acute bilateral PE complicated with A. fib RVR, leukocytosis secondary to G-CSF, and right lower lobe pneumonia. She did undergo echocardiogram during hospitalization which revealed normal EF, dilated IVC with reduced collapsibility and increased right atrial pressure. Her statin was placed on hold. She was discharged on Lovenox 60 mg every 12 hours. She did have follow-up with colorectal surgery today. Hematology oncology recommends continuing twice daily dosing of Lovenox. Over the past 24 hours she has noted increased shortness of breath as well as hypoxia. She denies any known fever, chills, sweats, lightheadedness, dizziness, syncope, chest pain, cough, hemoptysis, nausea, vomiting, abdominal pain, diarrhea. Overall she has very poor appetite and does drink 1 Ensure a day. She does have bilateral lower extremity swelling but feels this is normal for her. He feels related to poor nutrition status, hypoalbuminemia and weight loss. She does have skin tear to left pretibial area which has been has been dressing daily. She was prescribed Marinol by PCP 5 mg twice daily although this made patient dizzy. They did just reduce the dose to 2.5 mg daily but she has not yet resumed this. She also just completed a 5-day course of Decadron to try to stimulate appetite. In ED patient did remain hemodynamically stable although she did require 2 L of supplemental oxygen. Lab work notable for WBC 20.33k, H&H 10.5 and 34.1, platelet 243, neutrophil predominance, BUN 46, creatinine 0.63, glucose 133, mag 2.5, proBNP 3845, albumin 2.4. Chest x-ray revealed increase in size of moderate right pleural effusion with associated right basilar opacity. No change in small left pleural effusion. Interstitial thickening consistent with pulmonary edema. Admission Exam Per Admitting Provider Constitutional: Chronically ill-appearing female, elderly, vitals as above, NAD, sitting up in bed, pleasant, conversing easily Head: Normocephalic, Atraumatic Eyes: PERRL, conjunctivae normal, anicteric sclerae ENMT: external ear and nose normal, oropharynx normal Neck: trachea midline, no thyromegaly normal visual inspection Respiratory: On O2 via NC, normal respiratory effort, lungs clear to auscultation with decreased breath sounds at bases right greater than left, dullness to percussion to right posterior thorax T4-6 region, no wheeze, rales, rhonchi. Normal insp/exp effort, no accessory muscle use Cardiovascular: IRR/IRR, 1/6 GENESIS noted RUSB, bilateral +3 lower extremity edema with mild venostasis changes, large ecchymotic area to left pretibial area with skin tear, no surrounding erythema or warmth, bilateral pedal pulse +1 and equal Vessels: no JVD or carotid bruit Chest: Right anterior chest wall port, normal inspection of chest Abdomen: normal bowel sounds, soft, nontender, no hepatosplenomegaly Musculoskeletal: no cyanosis or clubbing, active range of motion to extremities x4 Skin: no rashes, warm and dry normal turgor Neurologic: PERRL, EOMI, accommodation nl, no face palsy, no dysarthria CN's II-XI intact bilaterally and moves all extremities Psychiatric: A+Ox3, euthymic affect Lymphatic: no cervical or axillary lymphadenopathy : deferred Principal Diagnosis Acute right-sided congestive heart failure Colon cancer metastasized to liver (Stage IV colorectal cancer) Pleural effusion Pulmonary embolism Persistent atrial fibrillation Protein calorie malnutrition. Discharge Exam CONSTITUTIONAL: WNWD, vitals as above, generally well-appearing EYES: normal conjunctivae, no scleral icterus ENT: external ear and nose normal, MMM RESPIRATORY: clear to auscultation bilaterally, no crackles, rales or wheezes, normal respiratory effort CARDIOVASCULAR: regular rate and rhythm, S1 and 2 heard without murmurs, gallops or rubs, no JVD, no peripheral edema GASTROINTESTINAL: soft, nontender, nondistended MUSCULOSKELETAL: strength 5/5 throughout, head is normocephalic and atraumatic SKIN: warm and dry NEUROLOGIC: CN 2-12 grossly intact, normal cognition, normal speech, no gross focal deficits. PSYCHIATRIC: alert cooperative and oriented to person, place and time. Discharge Data Allergies Allergy/AdvReac Type Severity Reaction Status Date / Time No Known Allergies Allergy Unverified 04/15/20 13:54 Consultations 05/06/20 16:50 ED Decision to Admit Stat 05/06/20 17:12 Consult Cardiology Routine Consult Pulmonology Routine 05/06/20 19:16 Consult Case Management - Discharge Planning Routine Hospital Course (1) Acute right-sided congestive heart failure: (2) Pleural effusion, right: (3) Colon cancer metastasized to liver: (4) Hypoxia: (5) Hypoalbuminemia: (6) Bilateral pulmonary embolism: (7) Protein calorie malnutrition: (8) Persistent atrial fibrillation: (9) Anemia: The patient is an 79-year-old female with a history of stage IV metastatic colorectal cancer to liver who was recently hospitalized for bilateral PE and who is known to have paroxysmal atrial fibrillation. She presented to the hospital with worsening shortness of breath x24 hours. She was admitted to the hospitalist service and given Lasix 40 mg x 1 with albumin x1 and covered empirically with IV vancomycin and Zosyn. She was continued on Lovenox for her known blood clot. Cardiology was consulted and felt that her progressive dy spnea was secondary to acute right-sided heart failure in the setting of recent bilateral pulmonary emboli, right-sided pleural effusion and worsening volume overload with hypoalbuminemia. IV diuretic therapy was continued. Pulmonary was consulted for her pleural effusion although a thoracentesis could be done on the patient the family declined this after extensive discussion with specialists. Doxycycline was added to antibiotic regimen for atypical coverage. She continued to do well with diuresis and was discharged in guarded condition because of her stage IV cancer but improved overall clinically with close primary care follow-up recommended. At time of discharge physical exam revealed clear lungs to auscultation and no other significant physical exam findings. Total Time Total Time Spent Total Time Spent (In Minutes): 60 Discharge Plan Discharge Items Patient Disposition: Home - Home Health Services Reason For Visit: SOB, HYPOXIA Discharge Diagnosis: Acute right-sided congestive heart failure Colon cancer metastasized to liver (Stage IV colorectal cancer) Pleural effusion Pulmonary embolism Persistent atrial fibrillation Protein calorie malnutrition. Condition on Discharge: Good Activity: Resume your previous activity Non-emergency contact: Primary Care Provider and Emergency Physician Call non-emergency contact if: you have any medication questions, your symptoms worsen, your pain is concerning for you and you have a fever Follow-up/Referrals: Stef Boykin DO [Emergency Physician] - 05/19/20 11:00 am (Cardiology, [facility]) Shruthi Crowell DO [Primary Care Provider] - (Date & Time 05/15/2020 1:40 PM Provider Carola Munguia MD Department Internal Medicine [facility] ) Diet: Low Sodium (2gm) Addtl Attending Provider Instructions: Please take all medications as instructed on discharge list below. Please followup with your primary care provider (PCP) and assistant professor of history as listed above. Please note that both appointments are located at the [place] location. A basic metabolic panel (nonfasting bloodwork) is recommended in 1 week to monitor your kidneys and electrolytes on the new medications. This may be ordered by your PCP in follow-up. You have Home Health for physical and occupational therapy ordered to be continued. Therapy may be extended through your PCP if needed to help meet your goals. It was a pleasure taking care of you! Please call if you have any questions or problems. You can reach a [facility] hospitalist on duty at [facility] 24 hours a day by calling [phone]. Take care of yourself. Ellie Manrique DO [facility] Pending Studies at Discharge: No Stand-Alone Forms: My [facility] Medications and DC Order Prescriptions: New potassium chloride [Klor-Con M20] 20 mEq Tablet,Er Particles/Crystals 20 meq PO QAM Qty: 30 RF: 1 torsemide 10 mg Tablet 10 mg PO QAM Qty: 30 RF: 1 Continued docusate sodium 100 mg capsule 100 mg PO BID PRN (Reason: Constipation) RF: 0 polyethylene glycol 3350 [Miralax] 17 gram Powder In Packet 17 g PO BID RF: 0 ondansetron HCl 8 mg tablet 8 mg PO Q8H PRN (Reason: Nausea) RF: 0 prochlorperazine maleate 10 mg tablet 10 mg PO Q6H PRN (Reason: Nausea) RF: 0 senna 8.6 mg Capsule 8.6 mg PO DAILY RF: 0 Magic Swizzle 15 ml PO QID PRN (Reason: Other) RF: 0 enoxaparin 60 mg/0.6 mL Syringe 60 mg subcut Q12 5 Days Qty: 6 RF: 1 amiodarone 200 mg Tablet 200 mg PO BID Qty: 60 RF: 1 metoprolol tartrate 25 mg Tablet 12.5 mg PO BID Qty: 30 RF: 1 dronabinol [Marinol] 2.5 mg capsule 2.5 mg PO BID RF: 0 Discharge Orders: Discharge Order (Routine); Ordered 05/12/20 Ordered By: Ellie Manrique Admission Data Admit Date/Time: 05/06/20 16:38 Attending Provider: Ellie Manrique Admit Provider: Huber Silveira Primary Care Provider: Shruthi Crowell Other Providers: Hayden Boyle [place] ; Huber Silveira ; Jc Melendez [facility] Other Interventions: Discharge Summary Assessment (RN) Last Done: 05/12/20 15:52
== END 2020-05-12 17:01 | disposition home health service (06) | DRG 291 ==
LOC: ED 15:07 → SUATTDRO 16:38 → 2N 16:38